=== PATIENT | male | born 1975 | race Two or more races ===

== ENCOUNTER 2020-12-21 17:30 | Emergency (ER) | payer MEDICAID ==
[~2020-12-21] VITALS: Ht 160 cm; Wt 77.1 kg
[2020-12-21 17:37] VITALS: BP 134/62
--- NOTE | 2020-12-21 19:11 | NUR ---
ED Nurse Note: pt states increased swelling of penis and testes since yesterday, increasing swelling today. pt denies trauma to area, denies discharge, c/o mild tightness in scrotal area. pt states he was able to urinate 2x today this morning, not since then. pt denies PMH. presents with ABD distention, pitting edema in bilateral lower legs, jaundiced appearance. MD notified of penis/scrotal edema, ABD distention, inability to urinate, bilateral edema.
--- NOTE | 2020-12-21 19:49 | Emergency Room Report ---
History of Present Illness General Chief Complaint: Male Urogenital Problems Source: Patient Present Illness Allergies: Coded Allergies: No Known Allergies (Unverified , 12/21/20) COVID-19 Screening Contact w/high risk pt: No Experienced COVID-19 symptoms?: No COVID-19 Testing performed STEAM PRESSER: No Patient History Past Medical History: none Past Surgical History: none Pertinent Family History: none Social History: Denies: smoking, alcohol use, drug use Immunizations: UTD Reviewed Nursing Documentation: PMH: Agreed; PSxH: Agreed Nursing Documentation-PMH Past Medical History: No Stated History Physical Exam Vital Signs Date Time Temp Pulse Resp B/P (MAP) Pulse Ox O2 Delivery O2 Flow Rate FiO2 12/21/20 17:37 98.8 83 17 134/62 (86) 97 Room Air Medical Decision Making Homeless Attestation I, The treating physician Dr. Sims, have assessed and agrees that patient is medically stable for discharge to an outpatient disposition. Diagnostic Impression: Primary Impression: Scrotal swelling Additional Impression: Anasarca ER Course Hospital Course 45-year-old male presents with scrotal swelling Differential diagnoses include: hydrocele, varicocele, epididymitis, testicular torsion Clinical course Patient placed on stretcher. After initial history and physical I ordered scrotal ultrasound. Ultrasound shows bilateral hydroceles with scrotal edema good flow to both ovaries I discussed with patient. He has significant lower body anasarca with pitting edema. To legs, scrotum, lower abdomen. Likely due to cirrhosis. Likely longstanding and chronic. Will discharge with Lasix. Recommend close follow-up with PMD. I will provide referrals Diagnosis - scrotal swelling, anasarca stable and discharged to home with prescription for lasix. Followup with PMD. Return to ED if symptoms recur or worsen CT/MRI/US Diagnostic Results CT/MRI/US Diagnostic Results : Imaging Test Ordered: scrotal US Impression Procedure: US Testicular Scrotum EXAM: US Scrotum CLINICAL HISTORY: SARIAH TECHNIQUE: Real-time ultrasound of the scrotum with color Doppler and image documentation. COMPARISON: No relevant prior studies available. FINDINGS: Right testicle: The right testicle measures 3.2 x 2.2 x 2.2 cm. No torsion. Left testicle: The left testicle measures 3.3 x 2.3 x 2.2 cm. No torsion. Epididymides: Unremarkable. Scrotum: There is a large amount of scrotal soft tissue edema. IMPRESSION: 1. Large amount of scrotal soft tissue edema. 2. No evidence of testicular torsion or mass. Last Vital Signs Date Time Temp Pulse Resp B/P (MAP) Pulse Ox O2 Delivery O2 Flow Rate FiO2 12/21/20 17:37 98.8 83 17 134/62 (86) 97 Room Air Status: improved Disposition: HOME, SELF-CARE Condition: Stable Scripts Furosemide* (LASIX*) 40 Mg Tablet 40 MG ORAL DAILY, #30 TAB Prov: Tab Sims MD 12/21/20 Referrals: NOT CHOSEN IPA/,REFERRING (PCP) Tab Sims MD Dec 21, 2020 19:49
--- NOTE | 2020-12-21 19:56 | Diagnostic Imaging Report ---
EXAM: US Scrotum CLINICAL HISTORY: JOHNNIELL TECHNIQUE: Real-time ultrasound of the scrotum with color Doppler and image documentation. COMPARISON: No relevant prior studies available. FINDINGS: Right testicle: The right testicle measures 3.2 x 2.2 x 2.2 cm. No torsion. Left testicle: The left testicle measures 3.3 x 2.3 x 2.2 cm. No torsion. Epididymides: Unremarkable. Scrotum: There is a large amount of scrotal soft tissue edema. IMPRESSION: 1. Large amount of scrotal soft tissue edema. 2. No evidence of testicular torsion or mass.
[2020-12-21] MEDS ORDERED: FUROSEMIDE40 MG ORAL (20:01)
--- NOTE | 2020-12-21 20:14 | NUR ---
ED Nurse Note: rcvd handoff from primary nurse. pt is resting comfotably on stretcher. pt breathing without difficulty on RA, pt refusing VS but states he is hungry. Pt has urinated in urinal at bedside 200ml. Pt states he is not in pain, just cant get comfortable. MD explained treatment plan and pt verbalized understanding. pt awaiting discharge.
[2020-12-22] MEDS ORDERED: HYDROCODON-ACE1 EA16 ORAL (05:09)
== END 2020-12-21 20:20 | disposition home or self-care (01) ==
LOC: EDBD 17:30 → EMR 17:57
DX: N50.89 Other specified disorders of the male genital organs (principal); R60.1 Generalized edema
CPT/HCPCS: 76870; Z7502; 99284

== ENCOUNTER 2020-12-22 05:00 | Emergency (ER) | payer MEDICAID ==
[~2020-12-22 05:00] MED LIST: FUROSEMIDE40 MG ORAL
[2020-12-22] MEDS ORDERED: HYDROCODON-ACE1 EA16 ORAL (05:09)
--- NOTE | 2020-12-22 05:13 | Emergency Room Report ---
History of Present Illness General Chief Complaint: To Be Triaged Present Illness HPI 45-year-old homeless male here with painful lower extremity edema. Patient says that this has been a chronic issue for him for many years. He is homeless and is not taking medications. Patient was here approximately 12 hours earlier and was evaluated for testicular swelling secondary to his anasarca. Had normal scrotal ultrasound. Patient was discharged and slept in front of the hospital and then checked in again. Allergies: Coded Allergies: No Known Allergies (Unverified , 12/21/20) COVID-19 Screening Contact w/high risk pt: No Experienced COVID-19 symptoms?: No Review of Systems All Other Systems: negative except mentioned in HPI Physical Exam Sp02 EP Interpretation: reviewed, normal General Appearance: no apparent distress, alert, other - Disheveled, foul- smelling Head: normocephalic, atraumatic Eyes: bilateral eye normal inspection, bilateral eye PERRL ENT: hearing grossly normal, normal pharynx, no angioedema, normal voice Neck: full range of motion, supple/symm/no masses Respiratory: chest non-tender, lungs clear, normal breath sounds, speaking full sentences Cardiovascular #1: regular rate, rhythm, other - 3+ lower extremity pitting edema bilaterally Cardiovascular #2: 2+ carotid (R), 2+ carotid (L), 2+ radial (R), 2+ radial (L), 2+ dorsalis pedis (R), 2+ dorsalis pedis (L) Gastrointestinal: normal bowel sounds, non tender, soft, non-distended, no guarding, no rebound Rectal: deferred Genitourinary: normal inspection, no CVA tenderness Musculoskeletal: back normal, normal range of motion, gait/station normal, non- tender Neurologic: alert, motor strength/tone normal, oriented x3, sensory intact, responsive, speech normal Psychiatric: judgement/insight normal, memory normal, mood/affect normal, no suicidal/homicidal ideation Lymphatic: no adenopathy Medical Decision Making Diagnostic Impression: Primary Impression: Anasarca ER Course 45-year-old male here with lower extremity edema. Patient says this has been a chronic issue for him for several years. Patient was seen in the emergency department about 12 hours prior and was discharged and then slept in front of the hospital and checked in again. Patient denies any chest pain or shortness of breath. Patient has been using crutches to get around for years. His edema is the same edema that he has been suffering from for several years. Was given a Jericho in the emergency department with resolution of his pain. Given a prescription for several more dose of Jericho. He had already received a prescription for Lasix and has not yet filled this prescription. Told that he needs to fill these prescriptions and also follow-up with a primary care provider. He was given information to follow-up with a PCP. Discharged in sta ble condition. Disposition: HOME, SELF-CARE Condition: Stable Scripts Hydrocodone/Acetaminophen 7.5-325* (HYDROCODON-ACETAMINOPH 7.5-325*) 1 Each Tablet 1 TAB ORAL Q4H, #10 TAB 0 Refills Prov: Khanh Mcduffie M.D. 12/22/20 Referrals: [facility] Patient Instructions: Edema, Fluid Restriction Khanh Mcduffie M.D. Dec 22, 2020 05:13
[2020-12-22] MEDS ORDERED: HYDROcodone/Acetamin 5/325 tab ORAL ONE (05:15)
== END 2020-12-22 05:30 | disposition home or self-care (01) ==
LOC: EMR 05:19
DX: R60.1 Generalized edema (principal); Z59.0 Homelessness
CPT/HCPCS: 99282

== ENCOUNTER 2020-12-28 18:28 | Inpatient (IN) | payer MEDICAID ==
[~2020-12-28] VITALS: Ht 165.1 cm; Wt 104.3 kg
[~2020-12-28 18:28] MED LIST changes: +HYDROCODON-ACE1 EA16 ORAL
--- NOTE | 2020-12-28 18:47 | NUR ---
ED Nurse Note:brought in by ems, stated he was in another hosptial for edema to his testicles and legs. released and lost his prescription and can't remember what it was. pt removed his shorts. his testicles are approximately the size of cantalope, penis is edematous. he states when he moves he leaks out urine. pt's testicles are discolored and peeling. pt has severe edema to his left lower leg that is discolored. pt stated that he has pain to the left ankle. leg is tight to feel. pt has bruise like area from the top of his buttocks down the side of his right leg.
--- NOTE | 2020-12-28 19:00 | NUR ---
ED Nurse Note: rcvd note from primary RN, pt resting on stretcher with obvious discomfort and respiratory wheezing. pts lower lobes have diminished breath sounds, pt states its difficult for him to breathe when hes lying down. pt sat 100% on RA. other vs wnl. IV est 20g left ac, blood work and cultures at bedside. awaiting dr evaluation. will continue to monitor. pt states 10/10 pain. repositioned pt and gave him an ice pack for comfort. pt states he feels better already.
[2020-12-28 19:47] VITALS: BP 131/63
--- NOTE | 2020-12-28 21:29 | NUR ---
ED Nurse Note: pt went to imaging.
[2020-12-28 21:30] LABS: HEMATOCRIT 29.6 % (42.0-52.0); HEMOGLOBIN 9.5 G/DL (14.2-18.0); MEAN CORPUSCULAR VOLUME 113 FL (80-99); PLATELET COUNT 70 K/UL (150-450); RED BLOOD COUNT 2.61 M/UL (4.70-6.10); RED CELL DISTRIBUTION WIDTH 16.9 % (11.6-14.8); WHITE BLOOD COUNT 4.5 K/UL (4.8-10.8)
[2020-12-28 21:41] LABS: ANION GAP 4 mmol/L (5-15); BLOOD UREA NITROGEN 11 mg/dL (7-18); CALCIUM 7.3 MG/DL (8.5-10.1); CARBON DIOXIDE 27 MMOL/L (21-32); CHLORIDE 107 MMOL/L (98-107); CREATININE 0.8 MG/DL (0.55-1.30); POTASSIUM 3.9 MMOL/L (3.5-5.1); SODIUM 138 MMOL/L (136-145)
[2020-12-28 21:49] LABS: ALANINE AMINOTRANSFERASE 47 U/L (12-78); ALBUMIN 1.3 G/DL (3.4-5.0); ALBUMIN/GLOBULIN RATIO 0.3 (1.0-2.7); ALKALINE PHOSPHATASE 203 U/L (46-116); ASPARTATE AMINO TRANSFERASE 91 U/L (15-37)
--- NOTE | 2020-12-28 22:12 | Diagnostic Imaging Report ---
EXAM: CT Abdomen and Pelvis Without Intravenous Contrast CLINICAL HISTORY: ABD DIST TECHNIQUE: Axial computed tomography images of the abdomen and pelvis without intravenous contrast. CTDI is 19.4 mGy and DLP is 1395 mGy-cm. One or more of the following dose reduction techniques were used: automated exposure control, adjustment of the mA and/or kV according to patient size, use of iterative reconstruction technique. COMPARISON: No relevant prior studies available. FINDINGS: Lung bases: Unremarkable. Mediastinum: Small hiatal hernia. ABDOMEN: Liver: Cirrhosis with portal hypertension. Gallbladder and bile ducts: No calcified stones. No ductal dilation. Pancreas: Unremarkable. Spleen: Splenomegaly. Adrenals: Unremarkable. Kidneys and ureters: No renal calculi or obstructive changes. Stomach and bowel: Nonspecific thickening in the GI tract in light of the liver disease and third spacing. PELVIS: Appendix: No findings to suggest acute appendicitis. Bladder: Unremarkable. Reproductive: Large hydroceles ABDOMEN and PELVIS: Intraperitoneal space: Small amounts of fluid in the peritoneal cavity. Edema in the mesentery. Bones/joints: No acute fracture. Soft tissues: Anasarca. Vasculature: Collateral vessels. No abdominal aortic aneurysm. Lymph nodes: Inguinal nodes. IMPRESSION: Cirrhosis with portal hypertension.
--- NOTE | 2020-12-28 22:35 | NUR ---
TRANSFER TO FLOOR: Patient transferred to /S [id number] as ordered, per ED MD . Report given to GERMAN Jarvis. Belongings given to pt.
--- NOTE | 2020-12-28 22:53 | NUR ---
ED Nurse Note: as getting pt up and cleaned, RN noticed bruising on pts upper thighs/buttock area. open sore on right back of thigh by knee. will make floor RN aware.
--- NOTE | 2020-12-28 23:04 | Emergency Room Report ---
History of Present Illness General Chief Complaint: Edema Source: Patient Present Illness HPI This patient is a homeless male with a liver cirrhosis. He is endstage with chronic anasarca. He has severe lower extremity and scrotal swelling and is sleeping on the street, unable to care for himself. He states that he is in severe pain and has been unable to walk. He has presented to the ED several days in a row as he states that he can no longer tolerate his pain and cannot care for himself. Allergies: Coded Allergies: No Known Allergies (Unverified , 12/21/20) COVID-19 Screening Contact w/high risk pt: No Experienced COVID-19 symptoms?: No COVID-19 Testing performed MEDIA INTERN: No Patient History Past Medical History: see triage record, other Social History: Reports: alcohol use Reviewed Nursing Documentation: PMH: Agreed; PSxH: Agreed Nursing Documentation-PMH Past Medical History: No Stated History Review of Systems All Other Systems: negative except mentioned in HPI Physical Exam Vital Signs Date Time Temp Pulse Resp B/P (MAP) Pulse Ox O2 Delivery O2 Flow Rate FiO2 12/28/20 18:25 98.4 92 20 150/80 (103) 99 Room Air 12/28/20 19:47 100 Sp02 EP Interpretation: reviewed, normal General Appearance: no apparent distress, alert, GCS 15, non-toxic Head: normocephalic, atraumatic Eyes: bilateral eye normal inspection, bilateral eye PERRL ENT: hearing grossly normal, normal pharynx, no angioedema, normal voice Neck: full range of motion, supple/symm/no masses Respiratory: chest non-tender, lungs clear, normal breath sounds, no respiratory distress, no retraction, no accessory muscle use, speaking full sentences Cardiovascular #1: regular rate, rhythm, edema - ansarca Gastrointestinal: non tender, soft, no guarding, no rebound, distended Rectal: deferred Genitourinary: other - Severe swelling and erythema of scrotum. Musculoskeletal: back normal, normal range of motion, gait/station normal, swelling - Severe swelling of bilateral legs (anasarca) Neurologic: alert, motor strength/tone normal, oriented x3, sensory intact, responsive, speech normal Psychiatric: judgement/insight normal, memory normal, mood/affect normal, no suicidal/homicidal ideation Skin: other - anasarca Medical Decision Making Diagnostic Impression: Primary Impression: Edema Additional Impressions: Anasarca Scrotal swelling ER Course This homeless male with cirrhosis and anasarca is unable to care for himself. He needs further management by a GI specialist and possibly TIPS. Regardless, the pt is homeless and cannot manage this terminal illness on the street. He is admitted for further management and will need placement in a nursing/assisted living facility. See EMR. Note; pancytopenia CT/MRI/US Diagnostic Results CT/MRI/US Diagnostic Results : Imaging Test Ordered: CT abd/pelvis Impression IMPRESSION: Cirrhosis with portal hypertension. Last Vital Signs Date Time Temp Pulse Resp B/P (MAP) Pulse Ox O2 Delivery O2 Flow Rate FiO2 12/28/20 22:32 98.4 99 22 132/60 100 Room Air 100 Disposition: ADMITTED INPATIENT Condition: Stable Referrals: NOT CHOSEN IPA/,REFERRING (PCP) Peri Moss DO Dec 28, 2020 23:04
--- NOTE | 2020-12-28 23:27 | NUR ---
NURSE NOTES: Received report from GERMAN Quiñonez ED. AAO x 4, korean speaking. Arrived @ 2300 via gurney. IV site intact and patent. Vitals stable. Pt has bilateral leg swollen with indentation and so much swollen/redness on scrotum. R lower buttock open wound noted and scabies on inner thigh and chest. All belongings reviewed. Has own crutches at bedside. No home meds noted. Orientation given to the facility and room. Fall education given and verbally understood. Bed locked, lowest position, alarm on, side rails up, call light within reach. Will continue to monitor. Left message Dr. Montaño for admission order.
[2020-12-29] VITALS: BP 128/63
--- NOTE | 2020-12-29 | NUR ---
NURSE NOTES: Left message Dr. Montaño for admission order and still awaiting for call back.
[2020-12-29 04:00] VITALS: BP 113/67
--- NOTE | 2020-12-29 05:00 | NUR ---
NURSE NOTES: Left message Dr. Montaño for admission order and still awaiting for call back.
--- NOTE | 2020-12-29 06:07 | NUR ---
NURSE HAND-OFF: Important Events on Shift:admission Patient Status: Diet: Pending Orders: admission order Pending Results/Labs:[] Pending MD notification:[] Latest Vital Signs: Temperature 98.4 , Pulse 99 , B/P 113 /67 , Respiratory Rate 18 , O2 SAT 100 , Room Air, O2 Flow Rate . Vital Sign Comment: [] Latest Quarles Fall Score: 45 Fall Risk: High Risk Safety Measures: Call light Within Reach, Bed Alarm Zone 1, Side Rails Side Rails x2, Bed position Low and Locked. Fall Precautions: Yellow Socks Yellow Gown Door Sign Patient Fall Education Addendum: 12/29/20 at 0712 by TESS WOODY RN RN Report given to Rene and merary admission order
--- NOTE | 2020-12-29 06:10 | NUR ---
NURSE NOTES: Urine collected and sent to the lab
--- NOTE | 2020-12-29 06:34 | NUR ---
NURSE NOTES: Left message Dr. Montaño for admission order and still awaiting for call back.
[2020-12-29 06:41] LABS: APPEARANCE,URINE SLIGHTLY CLOUDY; BILIRUBIN, URINE 2+ (NEGATIVE); COLOR,URINE BROWN; GLUCOSE, URINE (UA) NEGATIVE (NEGATIVE); KETONES,URINE 2+ (NEGATIVE); LEUKOCYTE ESTERASE ,URINE 1+ (NEGATIVE); NITRITE,URINE POSITIVE (NEGATIVE); PH,URINE 5 (4.5-8.0); UROBILINOGEN,URINE 12 MG/DL (0.0-1.0)
[2020-12-29 06:54] LABS: PROTEIN,URINE 1+ (NEGATIVE)
--- NOTE | 2020-12-29 07:30 | NUR ---
NURSE NOTES: RN received report from GERMAN Jarvis and patient in bed. Patient is aaoX3, shows no s/s of respiratory distress on RA. Scrotum and lower legs are edematous. Call light within reach, bed in lowest position and locked, bed alarm on. Care plan communicated with the patient. Admission orders received from Dr. Montaño and carried out. Will continue to monitor.
[2020-12-29 08:00] VITALS: BP 117/57
--- NOTE | 2020-12-29 08:05 | NUR ---
CASE MANAGEMENT:REVIEW 45YR OLD HOMELESS MALE PRESENTED TO ER CC: EDEMA. SWOLLEN LEGS AND TESTICULAR PAIN. DIFFICULTY BREATHING LYING DOWN SI:EDEMA. ANASARCA. SCROTAL SWELLING 98.4 92 20 150/80 99% ON RA WBC-4.5 RBC-2.6 H/H-9.5/29.6 PLT-70 CA-7.3 TBILI+5.0 DBILI+3.0 LIPASE+[address] ABD/PELVIS URINE REFLEX : TO MED/SURG DCP: [facility] CONSULT
[2020-12-29] MEDS: cefTRIAXone 1 GM in D5W 55 ML IVPB SCH (11:09)
[2020-12-29 12:00] VITALS: BP 119/81
--- NOTE | 2020-12-29 12:08 | Consultation ---
History of Present Illness General Date patient seen: Dec 29, 2020 Reason for Hospitalization: Edema Present Illness HPI 45-year-old male with liver insufficiency presents to [facility] complaining of worsening generalized edema and pain around his penis. Surgery called to evaluate assist with care. Patient seen, patient by, chart reviewed. Patient with diffuse anasarca noted to have edema abdomen pitting in the legs scrotal and penile. On the shaft right base of his penis there is a open wound. Local care provided. History of EtOH. Labs noted. Prior admission reviewed Allergies: Coded Allergies: No Known Allergies (Unverified , 12/21/20) COVID-19 Screening Contact w/high risk pt: No Experienced COVID-19 symptoms?: No Medication History Scheduled Furosemide* (Lasix*), 40 MG ORAL DAILY Hydrocodone/Acetaminophen 7.5-325* (Hydrocodon-Acetaminoph 7.5-325*), 1 TAB ORAL Q4H Patient History History Provided By: Patient, Medical Record, PMD Healthcare decision maker Resuscitation status Advanced Directive on File Past Medical/Surgical History Past Medical/Surgical History: (1) Scrotal swelling (2) Anasarca (3) Edema Review of Systems Review of Symptoms General ROS: no weight loss or fever Psychological ROS: no depression or mood changes, no memory loss Ophthalmic ROS: no visual changes or eye irritation ENT ROS: no nasal congestion, hearing loss, dizziness Allergy and Immunology ROS: no allergic symptoms or urticaria Hematological and Lymphatic ROS: no swollen glands, unusual bleeding or bruising Endocrine ROS: no polyuria, polydipsia, weight changes, temperature intolerance Respiratory ROS: no cough, shortness of breath, or wheezing Cardiovascular ROS: no chest pain or dyspnea on exertion Gastrointestinal ROS: denies abdominal pain, bright red blood in stool. Musculoskeletal ROS: no myalgias or arthralgias Neurological ROS: no TIA or stroke symptoms Dermatological ROS: no new or changing skin lesions, rashes or pruritis Physical Exam Physical Exam General appearance: alert, cooperative, no distress, appears stated age Head: Normocephalic, without obvious abnormality, atraumatic Eyes: conjunctivae/corneas clear. PERRL, EOM's intact. Fundi benign Throat: Lips, mucosa, and tongue normal. Teeth and gums normal Neck: supple, symmetrical, trachea midline, no adenopathy, thyroid: not enlarged, symmetric, no tenderness/mass/nodules, no carotid bruit and no JVD Lungs: clear to auscultation bilaterally Heart: regular rate and rhythm, S1, S2 normal, no murmur, click, rub or gallop Abdomen: soft, non-tender. Bowel sounds normal. No masses, no organomegaly Extremities: extremitiesedema Pulses: 2+ and symmetric Skin: Skin generalized anasarca Neurologic: Grossly normal Last 24 Hour Vital Signs Date Time Temp Pulse Resp B/P (MAP) Pulse Ox O2 Delivery O2 Flow Rate FiO2 12/29/20 08:00 98.0 94 19 117/57 (77) 100 12/29/20 04:00 98.4 99 18 113/67 (82) 100 12/29/20 00:00 98.3 101 18 128/63 (84) 100 12/28/20 23:44 Room Air 12/28/20 22:32 98.4 99 22 132/60 100 Room Air 100 12/28/20 19:47 86 22 Room Air 100 12/28/20 19:47 98.4 89 22 131/63 100 Room Air 12/28/20 18:25 98.4 92 20 150/80 (103) 99 Room Air Intake and Output 12/28/20 12/29/20 19:00 07:00 Intake Total 0 ml Output Total 600 ml Balance -600 ml Intake Oral 0 ml Output Other 600 ml Laboratory Tests Test 12/28/20 19:30 12/29/20 06:00 White Blood Count 4.5 K/UL (4.8-10.8) L Red Blood Count 2.61 M/UL (4.70-6.10) L Hemoglobin 9.5 G/DL (14.2-18.0) L Hematocrit 29.6 % (42.0-52.0) L Mean Corpuscular Volume 113 FL (80-99) H Mean Corpuscular Hemoglobin 36.2 PG (27.0-31.0) H Mean Corpuscular Hemoglobin Concent 32.0 G/DL (32.0-36.0) Red Cell Distribution Width 16.9 % (11.6-14.8) H Platelet Count 70 K/UL (150-450) L Mean Platelet Volume 8.5 FL (6.5-10.1) Neutrophils (%) (Auto) % (45.0-75.0) Lymphocytes (%) (Auto) % (20.0-45.0) Monocytes (%) (Auto) % (1.0-10.0) Eosinophils (%) (Auto) % (0.0-3.0) Basophils (%) (Auto) % (0.0-2.0) Differential Total Cells Counted 100 Neutrophils % (Manual) 65 % (45-75) Lymphocytes % (Manual) 29 % (20-45) Monocytes % (Manual) 3 % (1-10) Eosinophils % (Manual) 3 % (0-3) Basophils % (Manual) 0 % (0-2) Band Neutrophils 0 % (0-8) Platelet Estimate Decreased L Platelet Morphology Normal Anisocytosis 1+ Macrocytosis 1+ Sodium Level 138 MMOL/L (136-145) Potassium Level 3.9 MMOL/L (3.5-5.1) Chloride Level 107 MMOL/L (98-107) Carbon Dioxide Level 27 MMOL/L (21-32) Anion Gap 4 mmol/L (5-15) L Blood Urea Nitrogen 11 mg/dL (7-18) Creatinine 0.8 MG/DL (0.55-1.30) Estimat Glomerular Filtration Rate > 60 mL/min (>60) Glucose Level 102 MG/DL (74-106) Calcium Level 7.3 MG/DL (8.5-10.1) L Total Bilirubin 5.0 MG/DL (0.2-1.0) H Direct Bilirubin 3.0 MG/DL (0.0-0.3) H Aspartate Amino Transf (AST/SGOT) 91 U/L (15-37) H Alanine Aminotransferase (ALT/SGPT) 47 U/L (12-78) Alkaline Phosphatase 203 U/L (46-116) H Total Protein 6.4 G/DL (6.4-8.2) Albumin 1.3 G/DL (3.4-5.0) L Globulin 5.1 g/dL Albumin/Globulin Ratio 0.3 (1.0-2.7) L Lipase 478 U/L (73-393) H Urine Color Brown Urine Appearance Slightly cloudy Urine pH 5 (4.5-8.0) Urine Specific [place] 1.020 (1.005-1.035) Urine Protein 1+ (NEGATIVE) H Urine Glucose (UA) Negative (NEGATIVE) Urine Ketones 2+ (NEGATIVE) H Urine Blood Negative (NEGATIVE) Urine Nitrite Positive (NEGATIVE) H Urine Bilirubin 2+ (NEGATIVE) H Urine Ictotest Positive (NEGATIVE) Urine Urobilinogen 12 MG/DL (0.0-1.0) H Urine Leukocyte Esterase 1+ (NEGATIVE) H Urine RBC 0 /HPF (0 - 0) Urine WBC 2-4 /HPF (0 - 0) Urine Squamous Epithelial Cells Few /LPF (NONE/OCC) Urine Bacteria Few /HPF (NONE) Urine Mucus Moderate /LPF (NONE/OCC) H Height (Feet): 5 Height (Inches): 5.00 Weight (Pounds): 230 Medications Current Medications Medications (Trade) Dose Ordered Sig/Nelsy Route PRN Reason Start Time Stop Time Status Last Admin Dose Admin Acetaminophen (Tylenol) 650 mg Q4H PRN ORAL For Pain 12/29/20 09:30 01/28/21 09:29 Ceftriaxone Sodium 1 gm/ Dextrose 55 ml @ 110 mls/hr Q24H IVPB 12/29/20 11:00 01/05/21 10:59 12/29/20 11:09 Furosemide (Lasix) 20 mg DAILY IV 12/29/20 10:00 01/28/21 09:59 12/29/20 11:09 Permethrin (Elimite) 1 applic DAILY TOPIC 12/29/20 13:00 12/30/20 14:00 Assessment/Plan Problem List: (1) Scrotal swelling Assessment & Plan: 45-year-old male scrotal swelling identified a base right side penis lesion 2 cm x 1 cm stage III with 10% eschar. Wound washed Thera honey place dressings placed. Patient needs significant fluid reduction as he is retaining. Lasix ordered. Care plan discussed with nursing and PCP. Continue local wound care. GI for liver insufficiency. Liver: Cirrhosis with portal hypertension. Gallbladder and bile ducts: No calcified stones. No ductal dilation. Pancreas: Unremarkable. Spleen: Splenomegaly. Adrenals: Unremarkable. Kidneys and ureters: No renal calculi or obstructive changes. Stomach and bowel: Nonspecific thickening in the GI tract in light of the liver disease and third spacing. PELVIS: Appendix: No findings to suggest acute appendicitis. Bladder: Unremarkable. Reproductive: Large hydroceles ABDOMEN and PELVIS: Intraperitoneal space: Small amounts of fluid in the peritoneal cavity. Edema in the mesentery. Bones/joints: No acute fracture. Soft tissues: Anasarca. Vasculature: Collateral vessels. No abdominal aortic aneurysm. Lymph nodes: Inguinal nodes. IMPRESSION: Cirrhosis with portal hypertension. ICD Codes: N50.89 - Other specified disorders of the male genital organs SNOMED: 804369296 (2) Anasarca ICD Codes: R60.1 - Generalized edema SNOMED: 220526182, 580685049 (3) Edema ICD Codes: R60.9 - Edema, unspecified SNOMED: 483534390, [id number] Alexandru Cortez Dec 29, 2020 12:08
--- NOTE | 2020-12-29 12:58 | NUR ---
RD ASSESSMENT & RECOMMENDATIONS SEE CARE ACTIVITY FOR COMPLETE ASSESSMENT DAILY ESTIMATED NEEDS: Needs based on Liver, wound 72.5kg abw 25-30 kcals/kg 1766-6756 total kcals 1.25-1.5 g protein/kg 91-109 g total protein Fluid per MD, on lasix NUTRITION DIAGNOSIS: Decreased sodium needs r/t fluid overload, edema, as evidenced by pt w/ cirrhosis, ascites, LE 4+ edema. CURRENT DIET: regular PO DIET RECOMMENDATIONS: Low Na/ Low Fat ADDITIONAL RECOMMENDATIONS: 1) Obtain a standing weight as able Or transfer to bed w/ scale 2) High pro snacks in b.w meals 3) Wound care: LUIS EDUARDO BID + MVI w/ min + Vit C 250mg BID Addendum: 12/29/20 at [address] add Vit B1
--- NOTE | 2020-12-29 13:19 | NUR ---
NURSE NOTES:WOUND CARE NOTES:Pt presented on admission with Multiple Pressure Injuries. Trunk,including Scrotum and Bilat lower extremities are grossly edematous. Shaft of Penis is grossly edematous and malformed. Unstageable Pressure Injury noted at base of shaft of penis(L)2.5cm x (W)1.7cm. Base of wound is 90% fibrinous,10% surrounding mehnaz borders. Edges are macerated. Surrounding shaft of penis and Scrotum are erythematous. Scattered Purpuric areas noted to lumbar, Sacrum, R and L Gluteal cheeks. Surrounding skin are erythematous. Multiple Linear partial thickness lacerations noted to medial /posterior aspects of both upper thighs. Pt informed staff that legs of his shorts became too tight because of swelling and were cutting into his skin. Scattered purpuric areas also noted to posterior Upper L and R thighs. Unstageable Pressure Injury noted to L Heel. Base of wound is 100% necrotic. Edges are adherent to base of wound. R heel is boggy with non-blanchable erythema. Tx.Plan:Cleanse wound base of penis with Saline. Apply Therahoney every 3 days and prn. Fecal pouch around base of Penis. Change every 3 days and prn.. Apply Moisture Barrier Paste to Scrotum. Buttocks, and Medial/Posterior Aspects of both upper thighs with each Incontinence care. Cover Sacrum with Optifoam drsg. Change every 3 days and prn. Apply Betadine to L Heel. Cover with Optifoam drsg. Change every 3 days and prn. Elevate Legs with Pillows. Reposition at least every 2hours or as tolerated.
[2020-12-29 16:00] VITALS: BP 121/69
[2020-12-29] MEDS: Ascorbic Acid 500mg tab ORAL SCH (17:24)
[2020-12-29] MEDS: Multivitamin w/Minerals tab ORAL SCH (17:24)
--- NOTE | 2020-12-29 19:29 | History and Physical Report ---
DATE OF ADMISSION: 12/28/2020 HISTORY OF PRESENT ILLNESS: This is a 45-year-old male who came to the emergency room for having scrotal swelling, anasarca, edema, unable to walk. The patient has been walking with crutches. The patient claims he was in the ER about 2 weeks ago, was given a prescription. PAST MEDICAL HISTORY: Significant for possible hypertension, CHF. MEDICATIONS: None. ALLERGIES: NKA. FAMILY HISTORY: Not contributory. SOCIAL HISTORY: The patient is homeless. PHYSICAL EXAMINATION: VITAL SIGNS: Blood pressure 117/57, pulse 94, respirations 19, temperature 98. HEENT: NAD. CHEST: Bilateral decreased breath sounds. A few crackles. CARDIOVASCULAR: Regular rhythm. ABDOMEN: Soft. EXTREMITIES: CCE. NEUROLOGICAL: The patient has generalized weakness. LABORATORY DATA: White count 4.5, hemoglobin 9.5. Chemistry panel, BUN 11, creatinine 0.8, albumin is 1.3. ASSESSMENT: 1. Scrotal abscess. 2. Anasarca. 3. Severe malnutrition. 4. Comorbid obesity. 5. CHF. PLAN: 1. We will add Lasix. 2. We will consider dietary consult. 3. Continue wound care. 4. Discussed with Dr. Cortez. Titi Montaño M.D. DR: Austyn JOB#: [id number] CC:
--- NOTE | 2020-12-29 19:33 | NUR ---
NURSE NOTES: Received report from Neyda López. AAOx 4, on RA. IV site and patent. Fecal pouch around base of Penis for urine and dark usha color noted. No labored breathing. Wound dressings d/i/c. No acute distress noted. Bed locked, lowest position, alarm on, side rails up, call light within reach. Will continue to monitor.
--- NOTE | 2020-12-29 19:34 | NUR ---
NURSE HAND-OFF: Important Events on Shift:wound care, permethrin cream: wash the body before another application, isolation precaution Patient Status: stable Diet: low fat, low sodium Pending Orders: n/a Pending Results/Labs:n/a Pending MD notification:n/a Latest Vital Signs: Temperature 98.0 , Pulse 86 , B/P 121 /69 , Respiratory Rate 18 , O2 SAT 98 , Room Air, O2 Flow Rate . Vital Sign Comment: stable Latest Quarles Fall Score: 45 Fall Risk: High Risk Safety Measures: Call light Within Reach, Bed Alarm Zone 1, Side Rails Side Rails x2, Bed position Low and Locked. Fall Precautions: Yellow Socks Yellow Gown Door Sign Patient Fall Education Report given to GERMAN Jarvis.
[2020-12-29 20:00] VITALS: BP 120/64
[2020-12-30] VITALS: BP 124/67
[2020-12-30 04:00] VITALS: BP 136/91
--- NOTE | 2020-12-30 06:30 | NUR ---
NURSE HAND-OFF: Important Events on Shift:none Patient Status: stable Diet: Pending Orders: Pending Results/Labs: Pending MD notification: Latest Vital Signs: Temperature 99.4 , Pulse 86 , B/P 136 /91 , Respiratory Rate 20 , O2 SAT 99 , Room Air, O2 Flow Rate . Vital Sign Comment: [] Latest Quarles Fall Score: 45 Fall Risk: High Risk Safety Measures: Call light Within Reach, Bed Alarm Zone 1, Side Rails Side Rails x2, Bed position Low and Locked. Fall Precautions: Yellow Socks Yellow Gown Door Sign Patient Fall Education
--- NOTE | 2020-12-30 07:40 | NUR ---
NURSE NOTES: RN received report from Simona and patient in bed. Patient does not show respiratory distress or pain. IV site asymptomatic and patent. Bed in lowest position, locked, bed alarm on. Call light within reach, and able to make needs known. Fecal drainage bag on for urination draining and intact. Will continue to monitor.
[2020-12-30 08:00] VITALS: BP 111/51
[2020-12-30] MEDS: cefTRIAXone 1 GM in D5W 55 ML IVPB SCH (10:38)
[2020-12-30] MEDS: Multivitamin w/Minerals tab ORAL SCH ×2 (10:39→17:57)
[2020-12-30] MEDS: Ascorbic Acid 500mg tab ORAL SCH ×2 (10:39→17:57)
--- NOTE | 2020-12-30 11:52 | General Progress Note ---
Subjective Date patient seen: Dec 30, 2020 Constitutional: Reports: weakness HEENT: Reports: no symptoms Respiratory: Reports: no symptoms Gastrointestinal/Abdominal: Reports: no symptoms Endocrine: Reports: no symptoms Allergies: Coded Allergies: No Known Allergies (Unverified , 12/21/20) Objective Last 24 Hour Vital Signs Date Time Temp Pulse Resp B/P (MAP) Pulse Ox O2 Delivery O2 Flow Rate FiO2 12/30/20 08:00 98.4 86 18 111/51 (71) 97 12/30/20 04:00 99.4 86 20 136/91 (106) 99 12/30/20 00:00 98.0 91 20 124/67 (86) 96 12/29/20 20:41 Room Air 12/29/20 20:00 97.7 85 20 120/64 (82) 98 12/29/20 16:00 98.0 86 18 121/69 (86) 98 12/29/20 12:00 97.9 87 18 119/81 (94) 99 Intake and Output 12/29/20 12/30/20 19:00 07:00 Intake Total 855 ml Output Total 500 ml Balance 855 ml -500 ml IV Total 55 ml Other 800 ml Output Urine Total 500 ml Height (Feet): 5 Height (Inches): 5.00 Weight (Pounds): 230 General Appearance: alert EENT: PERRL/EOMI Neck: supple Cardiovascular: regular rhythm Respiratory/Chest: normal breath sounds Abdomen: non tender, soft Pelvis: other - scrtal swelling and wound Extremities: non-tender, normal inspection, swelling Edema: mild edema Skin: warm/dry Assessment/Plan Assessment/Plan: scortal swelling scortal wound chf htn comorbid obesity cont wound care iv abx lasix iv Juni Montaño MD Dec 30, 2020 11:52
[2020-12-30 12:00] VITALS: BP 137/76
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
--- NOTE | 2020-12-30 13:25 | Surgery Progress Note ---
Surgery Progress Note Subjective Symptoms: improved, tolerating diet, passing flatus Objective Last 24 Hour Vital Signs Date Time Temp Pulse Resp B/P (MAP) Pulse Ox O2 Delivery O2 Flow Rate FiO2 12/30/20 12:00 98.3 88 19 137/76 (96) 98 12/30/20 08:00 98.4 86 18 111/51 (71) 97 12/30/20 04:00 99.4 86 20 136/91 (106) 99 12/30/20 00:00 98.0 91 20 124/67 (86) 96 12/29/20 20:41 Room Air 12/29/20 20:00 97.7 85 20 120/64 (82) 98 12/29/20 16:00 98.0 86 18 121/69 (86) 98 I&O Intake and Output 12/29/20 12/30/20 19:00 07:00 Intake Total 855 ml Output Total 500 ml Balance 855 ml -500 ml IV Total 55 ml Other 800 ml Output Urine Total 500 ml Dressing: saturated Cardiovascular: RSR Respiratory: decreased breath sounds Abdomen: soft, non-tender, present bowel sounds Extremities: edema, no cyanosis Plan Problems: (1) Scrotal swelling Assessment & Plan: Pt presented on admission with Multiple Pressure Injuries. Trunk,including Scrotum and Bilat lower extremities are grossly edematous. Shaft of Penis is grossly edematous and malformed. Unstageable Pressure Injury noted at base of shaft of penis(L)2.5cm x (W)1.7cm. Base of wound is 90% fibrinous,10% surrounding mehnaz borders. Edges are macerated. Surrounding shaft of penis and Scrotum are erythematous. Scattered Purpuric areas noted to lumbar, Sacrum, R and L Gluteal cheeks. Surrounding skin are erythematous. Multiple Linear partial thickness lacerations noted to medial /posterior aspects of both upper thighs. Pt informed staff that legs of his shorts became too tight because of swelling and were cutting into his skin. Scattered purpuric areas also noted to posterior Upper L and R thighs. Unstageable Pressure Injury noted to L Heel. Base of wound is 100% necrotic. Edges are adherent to base of wound. R heel is boggy with non-blanchable erythema. Tx.Plan:Cleanse wound base of penis with Saline. Apply Therahoney every 3 days and prn. Fecal pouch around base of Penis. Change every 3 days and prn.. Apply Moisture Barrier Paste to Scrotum. Buttocks, and Medial/Posterior Aspects of both upper thighs with each Incontinence care. Cover Sacrum with Optifoam drsg. Change every 3 days and prn. Apply Betadine to L Heel. Cover with Optifoam drsg. Change every 3 days and prn. Elevate Legs with Pillows. Reposition at least every 2hours or as tolerated.45-year-old male scrotal swelling identified a base right side penis lesion 2 cm x 1 cm stage III with 10% eschar. Wound washed Thera honey place dressings placed. Patient needs significant fluid reduction as he is retaining. Lasix ordered. Care plan discussed with nursing and PCP. Continue local wound care. GI for liver insufficiency. Liver: Cirrhosis with portal hypertension. Gallbladder and bile ducts: No calcified stones. No ductal dilation. Pancreas: Unremarkable. Spleen: Splenomegaly. Adrenals: Unremarkable. Kidneys and ureters: No renal calculi or obstructive changes. Stomach and bowel: Nonspecific thickening in the GI tract in light of the liver disease and third spacing. PELVIS: Appendix: No findings to suggest acute appendicitis. Bladder: Unremarkable. Reproductive: Large hydroceles ABDOMEN and PELVIS: Intraperitoneal space: Small amounts of fluid in the peritoneal cavity. Edema in the mesentery. Bones/joints: No acute fracture. Soft tissues: Anasarca. Vasculature: Collateral vessels. No abdominal aortic aneurysm. Lymph nodes: Inguinal nodes. IMPRESSION: Cirrhosis with portal hypertension. (2) Anasarca (3) Edema Alexandru Cortez Dec 30, 2020 13:25
--- NOTE | 2020-12-30 15:08 | NUR ---
CASE MANAGEMENT:REVIEW 12/30/20 SI: SCROTAL SWELLING. ANASARCA. EDEMA 98.3 88 19 137/76 98% ON RA IS: IV ROCEPHIN Q24 VIT C PO BID MVI PO BID IV LASIX QD : MED/SURG STATUS DCP: HOMELESS
[2020-12-30 16:00] VITALS: BP 132/73
--- NOTE | 2020-12-30 18:39 | NUR ---
NURSE NOTES: RN changed the dressing and gave wound care.
--- NOTE | 2020-12-30 19:39 | NUR ---
NURSE NOTES: Received report from Neyda López. AAOx 4, on RA. IV site and patent. Fecal pouch around base of Penis for urine in place. No labored breathing, denies pain or discomfort. Wound dressings d/i/c. No acute distress noted. Bed locked, lowest position, alarm on, side rails up, call light within reach. Will continue to monitor.
--- NOTE | 2020-12-30 19:50 | NUR ---
NURSE HAND-OFF: Important Events on Shift:wound care, dressing change, fecal pouch on the base of penis Patient Status:stable per baseline Diet: low sodium, low fat Pending Orders: n/a Pending Results/Labs:n/a Pending MD notification:n/a Latest Vital Signs: Temperature 98.1 , Pulse 85 , B/P 132 /73 , Respiratory Rate 18 , O2 SAT 98 , Room Air, O2 Flow Rate . Vital Sign Comment: stable Latest Quarles Fall Score: 45 Fall Risk: High Risk Safety Measures: Call light Within Reach, Bed Alarm Zone 1, Side Rails Side Rails x2, Bed position Low and Locked. Fall Precautions: Yellow Socks Yellow Gown Door Sign Patient Fall Education Report given to Simona.
[2020-12-30 20:00] VITALS: BP 125/69
[2020-12-31] VITALS: BP 126/64
[2020-12-31 04:00] VITALS: BP 121/62
--- NOTE | 2020-12-31 06:16 | NUR ---
NURSE NOTES: Bed bath given and fecal pouch changed.
--- NOTE | 2020-12-31 06:16 | NUR ---
NURSE HAND-OFF: Important Events on Shift:none Patient Status: [] Diet: [] Pending Orders: [] Pending Results/Labs:[] Pending MD notification:[] Latest Vital Signs: Temperature 98.3 , Pulse 87 , B/P 121 /62 , Respiratory Rate 17 , O2 SAT 100 , Room Air, O2 Flow Rate . Vital Sign Comment: [] Latest Quarles Fall Score: 45 Fall Risk: High Risk Safety Measures: Call light Within Reach, Bed Alarm Zone 1, Side Rails Side Rails x2, Bed position Low and Locked. Fall Precautions: Yellow Socks Yellow Gown Door Sign Patient Fall Education Addendum: 12/31/20 at 0730 by TESS WOODY RN RN Report given to Kajal
--- NOTE | 2020-12-31 07:45 | NUR ---
NURSE NOTES: Received hand-off report from GERMAN Rdz. Patient alert and oriented x3, noted significant swelling on lower extremities, left antecubital 20g saline locked, contact precautions followed. Patient breathing even and unlabored on room air. Call light within reach, bed in lowest and locked position, side rails upx2, bed alarm on.
[2020-12-31 08:00] VITALS: BP 125/69
[2020-12-31] MEDS: Ascorbic Acid 500mg tab ORAL SCH ×2 (08:28→17:32)
[2020-12-31] MEDS: Multivitamin w/Minerals tab ORAL SCH ×2 (08:28→17:32)
[2020-12-31] MEDS: cefTRIAXone 1 GM in D5W 55 ML IVPB SCH (11:08)
[2020-12-31 12:00] VITALS: BP 112/55
--- NOTE | 2020-12-31 13:07 | General Progress Note ---
Subjective Constitutional: Reports: no symptoms Cardiovascular: Reports: no symptoms Respiratory: Reports: shortness of breath, SOB with excertion Allergies: Coded Allergies: No Known Allergies (Unverified , 12/21/20) Objective Last 24 Hour Vital Signs Date Time Temp Pulse Resp B/P (MAP) Pulse Ox O2 Delivery O2 Flow Rate FiO2 12/31/20 08:00 99.1 83 18 125/69 (87) 98 12/31/20 04:00 98.3 87 17 121/62 (81) 100 12/31/20 00:00 99.1 87 17 126/64 (84) 98 12/30/20 21:00 Room Air 12/30/20 20:00 99.1 83 18 125/69 (87) 98 12/30/20 16:00 98.1 85 18 132/73 (92) 98 l Intake and Output 12/30/20 12/31/20 19:00 07:00 Intake Total 775 ml 360 ml Output Total 400 ml 300 ml Balance 375 ml 60 ml Intake Oral 720 ml IV Total 55 ml Other 360 ml Output Urine Total 400 ml 300 ml # Bowel Movements 1 2 Height (Feet): 5 Height (Inches): 5.00 Weight (Pounds): 230 General Appearance: alert EENT: PERRL/EOMI Neck: supple Cardiovascular: regular rhythm Respiratory/Chest: normal breath sounds Abdomen: non tender, soft Genitourinary/Rectal: other Extremities: swelling Edema: other Skin: warm/dry Assessment/Plan Assessment/Plan: scortal swelling scortal wound chf htn comorbid obesity cont wound care iv abx lasix iv pt/ot eval dc plan surgery Juni Montaño MD Dec 31, 2020 13:07
--- NOTE | 2020-12-31 13:27 | Surgery Progress Note ---
Surgery Progress Note Subjective Symptoms: tolerating diet, passing flatus Additional Comments improved edema improved no n/v comfortable Objective Last 24 Hour Vital Signs Date Time Temp Pulse Resp B/P (MAP) Pulse Ox O2 Delivery O2 Flow Rate FiO2 12/31/20 08:00 99.1 83 18 125/69 (87) 98 12/31/20 04:00 98.3 87 17 121/62 (81) 100 12/31/20 00:00 99.1 87 17 126/64 (84) 98 12/30/20 21:00 Room Air 12/30/20 20:00 99.1 83 18 125/69 (87) 98 12/30/20 16:00 98.1 85 18 132/73 (92) 98 I&O Intake and Output 12/30/20 12/31/20 19:00 07:00 Intake Total 775 ml 360 ml Output Total 400 ml 300 ml Balance 375 ml 60 ml Intake Oral 720 ml IV Total 55 ml Other 360 ml Output Urine Total 400 ml 300 ml # Bowel Movements 1 2 Dressing: saturated Cardiovascular: RSR Respiratory: decreased breath sounds Abdomen: soft, non-tender, present bowel sounds Extremities: edema, no cyanosis Plan Problems: (1) Scrotal swelling Assessment & Plan: Pt presented on admission with Multiple Pressure Injuries. Trunk,including Scrotum and Bilat lower extremities are grossly edematous. Shaft of Penis is grossly edematous and malformed. Unstageable Pressure Injury noted at base of shaft of penis(L)2.5cm x (W)1.7cm. Base of wound is 90% fibrinous,10% surrounding mehnaz borders. Edges are macerated. Surrounding shaft of penis and Scrotum are erythematous. Scattered Purpuric areas noted to lumbar, Sacrum, R and L Gluteal cheeks. Surrounding skin are erythematous. Multiple Linear partial thickness lacerations noted to medial /posterior aspects of both upper thighs. Pt informed staff that legs of his shorts became too tight because of swelling and were cutting into his skin. Scattered purpuric areas also noted to posterior Upper L and R thighs. Unstageable Pressure Injury noted to L Heel. Base of wound is 100% necrotic. Edges are adherent to base of wound. R heel is boggy with non-blanchable erythema. Tx.Plan:Cleanse wound base of penis with Saline. Apply Therahoney every 3 days and prn. Fecal pouch around base of Penis. Change every 3 days and prn.. Apply Moisture Barrier Paste to Scrotum. Buttocks, and Medial/Posterior Aspects of both upper thighs with each Incontinence care. Cover Sacrum with Optifoam drsg. Change every 3 days and prn. Apply Betadine to L Heel. Cover with Optifoam drsg. Change every 3 days and prn. Elevate Legs with Pillows. Reposition at least every 2hours or as tolerated.45-year-old male scrotal swelling identified a base right side penis lesion 2 cm x 1 cm stage III with 10% eschar. Wound washed Thera honey place dressings placed. Patient needs significant fluid reduction as he is retaining. Lasix ordered. Care plan discussed with nursing and PCP. Continue local wound care. GI for liver insufficiency. Liver: Cirrhosis with portal hypertension. Gallbladder and bile ducts: No calcified stones. No ductal dilation. Pancreas: Unremarkable. Spleen: Splenomegaly. Adrenals: Unremarkable. Kidneys and ureters: No renal calculi or obstructive changes. Stomach and bowel: Nonspecific thickening in the GI tract in light of the liver disease and third spacing. PELVIS: Appendix: No findings to suggest acute appendicitis. Bladder: Unremarkable. Reproductive: Large hydroceles ABDOMEN and PELVIS: Intraperitoneal space: Small amounts of fluid in the peritoneal cavity. Edema in the mesentery. Bones/joints: No acute fracture. Soft tissues: Anasarca. Vasculature: Collateral vessels. No abdominal aortic aneurysm. Lymph nodes: Inguinal nodes. IMPRESSION: Cirrhosis with portal hypertension. (2) Anasarca (3) Edema Alexandru Cortez Dec 31, 2020 13:27
[2020-12-31 16:00] VITALS: BP 131/62
--- NOTE | 2020-12-31 16:02 | NUR ---
CASE MANAGEMENT:REVIEW 12/31/20 SI: SCROTAL SWELLING. ANASARCA. EDEMA 99.1 83 18 125/69 98% ON RA IS: IV ROCEPHIN Q24 VIT C PO BID MVI PO BID IV LASIX QD : MED/SURG STATUS DCP: HOMELESS
--- NOTE | 2020-12-31 18:34 | NUR ---
NURSE NOTES: Ambulance called stating that they will be late in coming.
--- NOTE | 2020-12-31 19:16 | NUR ---
NURSE HAND-OFF: Important Events on Shift: wound dressing performed, no bleeding noted Patient Status: stable condition, alert and oriented x4, full code Diet: low sodium and low fat Pending Orders: [] Pending Results/Labs:[] Pending MD notification:[] Latest Vital Signs: Temperature 98.8 , Pulse 83 , B/P 131 /62 , Respiratory Rate 20 , O2 SAT 99 , Room Air, O2 Flow Rate . Vital Sign Comment: [] Latest Quarles Fall Score: 45 Fall Risk: High Risk Safety Measures: Call light Within Reach, Bed Alarm Zone 1, Side Rails Side Rails x2, Bed position Low and Locked. Fall Precautions: Yellow Socks Yellow Gown Door Sign Patient Fall Education Report given to Federico Maloney RN.
--- NOTE | 2020-12-31 19:43 | NUR ---
NURSE NOTES: Patient awake in bed, alert and oriented x4, no complaint of pain at this time, on room air, no SOB noted. IV access on the left antecubital g.20. Instructed to use call light for assistance. Bed in lowest, lock engaged and alarm on. Will continue to monitor.
[2020-12-31 20:00] VITALS: BP 125/73
[2021-01-01] VITALS (8 sets, daily range): BP systolic 114–138; BP diastolic 57–72
--- NOTE | 2021-01-01 07:05 | NUR ---
NURSE HAND-OFF: Important Events on Shift: hygiene, 1 BM Patient Status: Diet: Pending Orders: Pending Results/Labs: Pending MD notification: Latest Vital Signs: Temperature 98.8 , Pulse 84 , B/P 124 /57 , Respiratory Rate 18 , O2 SAT 98 , Room Air, O2 Flow Rate . Vital Sign Comment: Latest Quarles Fall Score: 45 Fall Risk: High Risk Safety Measures: Call light Within Reach, Bed Alarm Zone 1, Side Rails Side Rails x2, Bed position Low and Locked. Fall Precautions: Yellow Socks Yellow Gown Door Sign Patient Fall Education Report given to GERMAN Johnston.
--- NOTE | 2021-01-01 07:15 | NUR ---
NURSE NOTES: Report received from Federico PORTER, rounds made. Patient AOx4, calm. [place] speaking. Respirations even/unlabored on RA. Abdomen distended/firm, hypoactive bowel sounds, no NV. Scrotal swelling, condom cath in place. Bilateral lower extremities, pitting edema +3. Call light in reach, bed in lowest position will continue to monitor.
--- NOTE | 2021-01-01 09:35 | NUR ---
PT EVALUATION NOTE Patient seen for initial evaluation and treatment initiated. Patient presents with weakness BLEs and decreased balance which impairs patient's ability to perform mobility skills safely. Patient requires min assist for bed mobility and CGA for transfers with FWW. Patient able to ambulate 30 ft with FWW and CGA. Patient will benefit from skilled inpatient PT intervention to increase LE strength and postural stability for improved level of functional mobility, safety and activity tolerance. Discharge disposition to be determined. Recommend FWW for ambulation. Addendum: 01/01/21 at 1307 by ZITA GARCIA PT Amended: Links added.
--- NOTE | 2021-01-01 10:10 | NUR ---
RD ASSESSMENT & RECOMMENDATIONS SEE CARE ACTIVITY FOR COMPLETE ASSESSMENT DAILY ESTIMATED NEEDS: Needs based on Liver, wound 72.5kg abw 25-30 kcals/kg 0655-0593 total kcals 1.25-1.5 g protein/kg 91-109 g total protein Fluid per MD, on lasix NUTRITION DIAGNOSIS: Decreased sodium needs r/t fluid overload, edema, as evidenced by pt w/ cirrhosis, ascites, LE 4+-> now 3+ edema. CURRENT DIET: Now Low Na/ Low Fat PO DIET RECOMMENDATIONS: Low Na/ Low Fat ADDITIONAL RECOMMENDATIONS: 1) Obtain a standing weight as able Or transfer to bed w/ scale 2) High pro snacks in b.w meals 3) Wound care: LUIS EDUARDO BID + MVI w/ min + Vit C 250mg BID 4) On lasix, updated labs as able to monitor lytes and hydration status
[2021-01-01] MEDS: Multivitamin w/Minerals tab ORAL SCH ×2 (10:43→18:10)
[2021-01-01] MEDS: Ascorbic Acid 500mg tab ORAL SCH ×2 (10:43→18:10)
[2021-01-01] MEDS: cefTRIAXone 1 GM in D5W 55 ML IVPB SCH (10:46)
--- NOTE | 2021-01-01 11:49 | NUR ---
CASE MANAGEMENT:REVIEW 01/01/21 SI: SCROTAL SWELLING. ANASARCA. EDEMA 98.0 85 18 114/60 96% ON RA IS: IV ROCEPHIN Q24 VIT C PO BID MVI PO BID IV LASIX QD : MED/SURG STATUS DCP: HOMELESS
--- NOTE | 2021-01-01 11:56 | General Progress Note ---
Subjective Constitutional: Reports: no symptoms Respiratory: Reports: no symptoms Genitourinary: Reports: incontinence Allergies: Coded Allergies: No Known Allergies (Unverified , 12/21/20) Objective Last 24 Hour Vital Signs Date Time Temp Pulse Resp B/P (MAP) Pulse Ox O2 Delivery O2 Flow Rate FiO2 01/01/21 08:00 98.0 85 18 114/60 (78) 96 01/01/21 04:00 98.8 84 18 124/57 (79) 98 01/01/21 00:00 98.9 84 17 132/66 (88) 98 12/31/20 20:32 Room Air 12/31/20 20:00 98.6 80 17 125/73 (90) 98 12/31/20 16:00 98.8 83 20 131/62 (85) 99 12/31/20 12:00 98.7 85 20 112/55 (74) 99 Intake and Output 12/31/20 01/01/21 19:00 07:00 Intake Total 1200 ml 300 ml Output Total 400 ml 500 ml Balance 800 ml -200 ml Intake Oral 1200 ml 300 ml Output Urine Total 400 ml 500 ml # Bowel Movements 1 Height (Feet): 5 Height (Inches): 5.00 Weight (Pounds): 230 General Appearance: alert EENT: PERRL/EOMI Neck: supple Cardiovascular: regular rhythm Respiratory/Chest: normal breath sounds Abdomen: non tender, soft Assessment/Plan Assessment/Plan: scortal swelling scortal wound chf htn comorbid obesity cont wound care iv abx lasix iv pt/ot eval dc plan dw surgery Juni Montaño MD Jan 01, 2021 11:56
--- NOTE | 2021-01-01 12:17 | NUR ---
MATERIALS MANAGER NOTE LALITO discussed dc plan w/ pt. PT [facility]. SW provided the community resource packet, [facility] list and food and grocery resource. SW also provided the map to the nearest food [facility] and [facility] as per request. SW explained negative ramification of unlicensed facilities/self-directing. PT verbalized understanding. PT verbalized he will be able to provide self-care. LALITO attempted to call [facility] [phone] and [facility] [phone], calls were not answered. Pt will dc own resource to preferred location. LALITO provided clothing as per request. Addendum: 01/07/21 at 1355 by BOGDAN STARKEY [facility] [phone]
--- NOTE | 2021-01-01 18:32 | Surgery Progress Note ---
Surgery Progress Note Subjective Additional Comments feels better still very swollen edema Objective Last 24 Hour Vital Signs Date Time Temp Pulse Resp B/P (MAP) Pulse Ox O2 Delivery O2 Flow Rate FiO2 01/01/21 12:00 98.3 84 18 130/72 (91) 98 01/01/21 08:00 98.0 85 18 114/60 (78) 96 01/01/21 04:00 98.8 84 18 124/57 (79) 98 01/01/21 00:00 98.9 84 17 132/66 (88) 98 12/31/20 20:32 Room Air 12/31/20 20:00 98.6 80 17 125/73 (90) 98 I&O Intake and Output 12/31/20 01/01/21 19:00 07:00 Intake Total 1200 ml 300 ml Output Total 400 ml 500 ml Balance 800 ml -200 ml Intake Oral 1200 ml 300 ml Output Urine Total 400 ml 500 ml # Bowel Movements 1 Dressing: saturated Cardiovascular: RSR Respiratory: clear Abdomen: soft, flat, present bowel sounds Extremities: edema, no tenderness, no cyanosis Plan Problems: (1) Scrotal swelling Assessment & Plan: Pt presented on admission with Multiple Pressure Injuries. Trunk,including Scrotum and Bilat lower extremities are grossly edematous. Shaft of Penis is grossly edematous and malformed. Unstageable Pressure Injury noted at base of shaft of penis(L)2.5cm x (W)1.7cm. Base of wound is 90% fibrinous,10% surrounding mehnaz borders. Edges are macerated. Surrounding shaft of penis and Scrotum are erythematous. Scattered Purpuric areas noted to lumbar, Sacrum, R and L Gluteal cheeks. Surrounding skin are erythematous. Multiple Linear partial thickness lacerations noted to medial /posterior aspects of both upper thighs. Pt informed staff that legs of his shorts became too tight because of swelling and were cutting into his skin. Scattered purpuric areas also noted to posterior Upper L and R thighs. Unstageable Pressure Injury noted to L Heel. Base of wound is 100% necrotic. Edges are adherent to base of wound. R heel is boggy with non-blanchable erythema. Tx.Plan:Cleanse wound base of penis with Saline. Apply Therahoney every 3 days and prn. Fecal pouch around base of Penis. Change every 3 days and prn.. Apply Moisture Barrier Paste to Scrotum. Buttocks, and Medial/Posterior Aspects of both upper thighs with each Incontinence care. Cover Sacrum with Optifoam drsg. Change every 3 days and prn. Apply Betadine to L Heel. Cover with Optifoam drsg. Change every 3 days and prn. Elevate Legs with Pillows. Reposition at least every 2hours or as tolerated.45-year-old male scrotal swelling identified a base right side penis lesion 2 cm x 1 cm stage III with 10% eschar. Wound washed Thera honey place dressings placed. Patient needs significant fluid reduction as he is retaining. Lasix ordered. Care plan discussed with nursing and PCP. Continue local wound care. GI for liver insufficiency. Liver: Cirrhosis with portal hypertension. Gallbladder and bile ducts: No calcified stones. No ductal dilation. Pancreas: Unremarkable. Spleen: Splenomegaly. Adrenals: Unremarkable. Kidneys and ureters: No renal calculi or obstructive changes. Stomach and bowel: Nonspecific thickening in the GI tract in light of the liver disease and third spacing. PELVIS: Appendix: No findings to suggest acute appendicitis. Bladder: Unremarkable. Reproductive: Large hydroceles ABDOMEN and PELVIS: Intraperitoneal space: Small amounts of fluid in the peritoneal cavity. Edema in the mesentery. Bones/joints: No acute fracture. Soft tissues: Anasarca. Vasculature: Collateral vessels. No abdominal aortic aneurysm. Lymph nodes: Inguinal nodes. IMPRESSION: Cirrhosis with portal hypertension. (2) Anasarca (3) Edema Alexandru Cortez Jan 01, 2021 18:32
--- NOTE | 2021-01-01 19:35 | NUR ---
NURSE HAND-OFF: Important Events on Shift:Up with PT (ambulated in room, to bathroom and back), Abdomen firm/distended Patient Status: stable Diet: Low NA, Low Fat, High Protein, Odell BID Pending Orders: Discharge Pending Results/Labs:labs in AM Pending MD notification:CBC CMP 01/02 Latest Vital Signs: Temperature 98.0 , Pulse 81 , B/P 130 /63 , Respiratory Rate 18 , O2 SAT 98 , Room Air, O2 Flow Rate . Vital Sign Comment: none Latest Quarles Fall Score: 45 Fall Risk: High Risk Safety Measures: Call light Within Reach, Bed Alarm Zone 1, Side Rails Side Rails x2, Bed position Low and Locked. Fall Precautions: Yellow Socks Yellow Gown Door Sign Patient Fall Education Report given to Shalom PORTER.
--- NOTE | 2021-01-01 20:03 | NUR ---
NURSE NOTES: patient in bed, awake, alert and verbally responsive. Able to make needs known. No complaint at the moment. Noted with scrotal swelling. Respiration is even and unlabored. Abdomen is soft and non distended. Bed in low and locked position. Provided safe environment. Call light is at bedside. Will continue plan of care.
[2021-01-02 04:00] VITALS: BP 113/61
[2021-01-02 06:48] LABS: HEMATOCRIT 27.4 % (42.0-52.0); MEAN CORPUSCULAR VOLUME 112 FL (80-99); PLATELET COUNT 67 K/UL (150-450); RED BLOOD COUNT 2.44 M/UL (4.70-6.10); RED CELL DISTRIBUTION WIDTH 16.3 % (11.6-14.8); WHITE BLOOD COUNT 3.6 K/UL (4.8-10.8)
--- NOTE | 2021-01-02 07:17 | NUR ---
NURSE NOTES: Report received from Shalom PORTER, rounds made. Patient AOx4, calm. Bahraini speaking. Respirations even/unlabored on RA. Abdomen distended/firm, hypoactive bowel sounds, no NV. Scrotal swelling, condom cath in place, orange color. Bilateral lower extremities, pitting edema +3. Call light in reach, bed in lowest position will continue to monitor.
--- NOTE | 2021-01-02 07:20 | NUR ---
NURSE HAND-OFF: Important Events on Shift:WNL Patient Status: Diet: REG Pending Orders: Pending Results/Labs: Pending MD notification: Latest Vital Signs: Temperature 98.5 , Pulse 82 , B/P 113 /61 , Respiratory Rate 18 , O2 SAT 98 , Room Air, O2 Flow Rate . Vital Sign Comment: Latest Quarles Fall Score: 45 Fall Risk: High Risk Safety Measures: Call light Within Reach, Bed Alarm Zone 1, Side Rails Side Rails x2, Bed position Low and Locked. Fall Precautions: Yellow Socks Yellow Gown Door Sign Patient Fall Education Report given to GERMAN Johnston.
[2021-01-02 07:29] LABS: ALANINE AMINOTRANSFERASE 45 U/L (12-78); ALBUMIN 1.2 G/DL (3.4-5.0); ALBUMIN/GLOBULIN RATIO 0.2 (1.0-2.7); ALKALINE PHOSPHATASE 186 U/L (46-116); ANION GAP 5 mmol/L (5-15); ASPARTATE AMINO TRANSFERASE 97 U/L (15-37); BILIRUBIN,TOTAL 4.2 MG/DL (0.2-1.0); BLOOD UREA NITROGEN 15 mg/dL (7-18); CALCIUM 7.5 MG/DL (8.5-10.1); CARBON DIOXIDE 26 MMOL/L (21-32); CHLORIDE 100 MMOL/L (98-107); CREATININE 0.7 MG/DL (0.55-1.30); POTASSIUM 4.1 MMOL/L (3.5-5.1); SODIUM 130 MMOL/L (136-145)
[2021-01-02 07:30] LABS: BILIRUBIN,DIRECT 2.8 MG/DL (0.0-0.3)
[2021-01-02 08:00] VITALS: BP 116/60
[2021-01-02] MEDS: Multivitamin w/Minerals tab ORAL SCH ×2 (10:00→18:35)
[2021-01-02] MEDS: Ascorbic Acid 500mg tab ORAL SCH ×2 (10:00→18:36)
[2021-01-02] MEDS: cefTRIAXone 1 GM in D5W 55 ML IVPB SCH (10:40)
--- NOTE | 2021-01-02 11:00 | NUR ---
NURSE NOTES: Dr. Cortez notified (at bedside) of firm/tight edema to abdomen, BLE, labs/eMAR, I&Os reviewed. Orders for additional dose of Lasix 20 mg IVP x1. Will follow as ordered. Will update patient.
--- NOTE | 2021-01-02 11:30 | NUR ---
NURSE NOTES: Left posterior thigh with drainage, clear, applied optifoam and place chux pad beneath left thigh.
--- NOTE | 2021-01-02 11:50 | NUR ---
NURSE NOTES: Spoke with tech, patient has already eaten most of his lunch, was informed that US ABD will be done on Monday morning, so patient will need to be NPO at midnight on Monday, will endorse to next shift and add sign to door for reminder.
[2021-01-02 12:00] VITALS: BP 130/62
--- NOTE | 2021-01-02 12:11 | Surgery Progress Note ---
Surgery Progress Note Subjective Additional Comments still with edema given more lasix renal okay good uop Objective Last 24 Hour Vital Signs Date Time Temp Pulse Resp B/P (MAP) Pulse Ox O2 Delivery O2 Flow Rate FiO2 01/02/21 04:00 98.5 82 18 113/61 (78) 98 01/01/21 23:58 99.0 87 18 138/58 (84) 98 01/01/21 20:33 Room Air 01/01/21 20:00 98.9 81 18 128/65 (86) 99 01/01/21 16:00 98.0 81 18 130/63 (85) 98 I&O Intake and Output 01/01/21 01/02/21 19:00 07:00 Output Total 600 ml 400 ml Balance -600 ml -400 ml Output Urine Total 600 ml 400 ml # Voids 1 Dressing: saturated Cardiovascular: RSR Respiratory: decreased breath sounds Abdomen: soft, non-tender, present bowel sounds Extremities: edema, no cyanosis Laboratory Tests Test 01/02/21 05:35 White Blood Count 3.6 K/UL (4.8-10.8) L Red Blood Count 2.44 M/UL (4.70-6.10) L Hemoglobin 9.0 G/DL (14.2-18.0) L Hematocrit 27.4 % (42.0-52.0) L Mean Corpuscular Volume 112 FL (80-99) H Mean Corpuscular Hemoglobin 36.9 PG (27.0-31.0) H Mean Corpuscular Hemoglobin Concent 33.0 G/DL (32.0-36.0) Red Cell Distribution Width 16.3 % (11.6-14.8) H Platelet Count 67 K/UL (150-450) L Mean Platelet Volume 9.0 FL (6.5-10.1) Neutrophils (%) (Auto) % (45.0-75.0) Lymphocytes (%) (Auto) % (20.0-45.0) Monocytes (%) (Auto) % (1.0-10.0) Eosinophils (%) (Auto) % (0.0-3.0) Basophils (%) (Auto) % (0.0-2.0) Differential Total Cells Counted 100 Neutrophils % (Manual) 63 % (45-75) Lymphocytes % (Manual) 24 % (20-45) Monocytes % (Manual) 11 % (1-10) H Eosinophils % (Manual) 2 % (0-3) Basophils % (Manual) 0 % (0-2) Band Neutrophils 0 % (0-8) Platelet Estimate Decreased L Platelet Morphology Normal Hypochromasia 1+ Anisocytosis 1+ Macrocytosis 1+ Sodium Level 130 MMOL/L (136-145) L Potassium Level 4.1 MMOL/L (3.5-5.1) Chloride Level 100 MMOL/L (98-107) Carbon Dioxide Level 26 MMOL/L (21-32) Anion Gap 5 mmol/L (5-15) Blood Urea Nitrogen 15 mg/dL (7-18) Creatinine 0.7 MG/DL (0.55-1.30) Estimat Glomerular Filtration Rate > 60 mL/min (>60) Glucose Level 75 MG/DL (74-106) Calcium Level 7.5 MG/DL (8.5-10.1) L Total Bilirubin 4.2 MG/DL (0.2-1.0) H Direct Bilirubin 2.8 MG/DL (0.0-0.3) H Aspartate Amino Transf (AST/SGOT) 97 U/L (15-37) H Alanine Aminotransferase (ALT/SGPT) 45 U/L (12-78) Alkaline Phosphatase 186 U/L (46-116) H Total Protein 6.4 G/DL (6.4-8.2) Albumin 1.2 G/DL (3.4-5.0) L Globulin 5.2 g/dL Albumin/Globulin Ratio 0.2 (1.0-2.7) L Plan Problems: (1) Scrotal swelling Assessment & Plan: Pt presented on admission with Multiple Pressure Injuries. Trunk,including Scrotum and Bilat lower extremities are grossly edematous. Shaft of Penis is grossly edematous and malformed. Unstageable Pressure Injury noted at base of shaft of penis(L)2.5cm x (W)1.7cm. Base of wound is 90% fibrinous,10% surrounding mehnaz borders. Edges are macerated. Surrounding shaft of penis and Scrotum are erythematous. Scattered Purpuric areas noted to lumbar, Sacrum, R and L Gluteal cheeks. Surrounding skin are erythematous. Multiple Linear partial thickness lacerations noted to medial /posterior aspects of both upper thighs. Pt informed staff that legs of his shorts became too tight because of swelling and were cutting into his skin. Scattered purpuric areas also noted to posterior Upper L and R thighs. Unstageable Pressure Injury noted to L Heel. Base of wound is 100% necrotic. Edges are adherent to base of wound. R heel is boggy with non-blanchable erythema. Tx.Plan:Cleanse wound base of penis with Saline. Apply Therahoney every 3 days and prn. Fecal pouch around base of Penis. Change every 3 days and prn.. Apply Moisture Barrier Paste to Scrotum. Buttocks, and Medial/Posterior Aspects of both upper thighs with each Incontinence care. Cover Sacrum with Optifoam drsg. Change every 3 days and prn. Apply Betadine to L Heel. Cover with Optifoam drsg. Change every 3 days and prn. Elevate Legs with Pillows. Reposition at least every 2hours or as tolerated.45-year-old male scrotal swelling identified a base right side penis lesion 2 cm x 1 cm stage III with 10% eschar. Wound washed Thera honey place dressings placed. Patient needs significant fluid reduction as he is retaining. Lasix ordered. Care plan discussed with nursing and PCP. Continue local wound care. GI for liver insuff iciency. Liver: Cirrhosis with portal hypertension. Gallbladder and bile ducts: No calcified stones. No ductal dilation. Pancreas: Unremarkable. Spleen: Splenomegaly. Adrenals: Unremarkable. Kidneys and ureters: No renal calculi or obstructive changes. Stomach and bowel: Nonspecific thickening in the GI tract in light of the liver disease and third spacing. PELVIS: Appendix: No findings to suggest acute appendicitis. Bladder: Unremarkable. Reproductive: Large hydroceles ABDOMEN and PELVIS: Intraperitoneal space: Small amounts of fluid in the peritoneal cavity. Edema in the mesentery. Bones/joints: No acute fracture. Soft tissues: Anasarca. Vasculature: Collateral vessels. No abdominal aortic aneurysm. Lymph nodes: Inguinal nodes. IMPRESSION: Cirrhosis with portal hypertension. (2) Anasarca (3) Edema Alexandru Cortez Jan 02, 2021 12:11
--- NOTE | 2021-01-02 13:50 | General Progress Note ---
Subjective Allergies: Coded Allergies: No Known Allergies (Unverified , 12/21/20) Objective Last 24 Hour Vital Signs Date Time Temp Pulse Resp B/P (MAP) Pulse Ox O2 Delivery O2 Flow Rate FiO2 01/02/21 04:00 98.5 82 18 113/61 (78) 98 01/01/21 23:58 99.0 87 18 138/58 (84) 98 01/01/21 20:33 Room Air 01/01/21 20:00 98.9 81 18 128/65 (86) 99 01/01/21 16:00 98.0 81 18 130/63 (85) 98 Intake and Output 01/01/21 01/02/21 19:00 07:00 Output Total 600 ml 400 ml Balance -600 ml -400 ml Output Urine Total 600 ml 400 ml # Voids 1 Laboratory Tests 01/02/21 05:35: White Blood Count 3.6L, Red Blood Count 2.44L, Hemoglobin 9.0L, Hematocrit 27.4L , Mean Corpuscular Volume 112H, Mean Corpuscular Hemoglobin 36.9H, Mean Corpuscular Hemoglobin Concent 33.0, Red Cell Distribution Width 16.3H, Platelet Count 67L, Mean Platelet Volume 9.0, Neutrophils (%) (Auto) , Lymphocytes (%) (Auto) , Monocytes (%) (Auto) , Eosinophils (%) (Auto) , Basophils (%) (Auto) , Differential Total Cells Counted 100, Neutrophils % (Manual) 63, Lymphocytes % (Manual) 24, Monocytes % (Manual) 11H, Eosinophils % (Manual) 2, Basophils % (Manual) 0, Band Neutrophils 0, Platelet Estimate DecreasedL, Platelet Morphology Normal, Hypochromasia 1+, Anisocytosis 1+, Macrocytosis 1+, Sodium Level 130L, Potassium Level 4.1, Chloride Level 100, Carbon Dioxide Level 26, Anion Gap 5, Blood Urea Nitrogen 15, Creatinine 0.7, Estimat Glomerular Filtration Rate > 60, Glucose Level 75, Calcium Level 7.5L, Total Bilirubin 4.2H , Direct Bilirubin 2.8H, Aspartate Amino Transf (AST/SGOT) 97H, Alanine Aminotransferase (ALT/SGPT) 45, Alkaline Phosphatase 186H, Total Protein 6.4, Albumin 1.2L, Globulin 5.2, Albumin/Globulin Ratio 0.2L Height (Feet): 5 Height (Inches): 5.00 Weight (Pounds): 230 General Appearance: no apparent distress Neck: supple Cardiovascular: regular rhythm Respiratory/Chest: lungs clear Abdomen: non tender, soft Assessment/Plan Assessment/Plan: scortal swelling scortal wound chf htn comorbid obesity cont wound care iv abx lasix iv pt/ot eval dc plan to snf dw surgery Juni Montaño MD Jan 02, 2021 13:50
[2021-01-02 16:00] VITALS: BP 138/69
--- NOTE | 2021-01-02 18:46 | NUR ---
NURSE NOTES: Left posterior thigh with clear drainage, optifoam applied.
--- NOTE | 2021-01-02 19:10 | NUR ---
NURSE HAND-OFF: Important Events on Shift:Lasix 20 mg IV additional dose x1, US ABD will be done on 01/04 (patient will be NPO at [facility] on Wednesday 01/03) Patient Status: stable Diet: Low NA, Low Fat, High Protein, Odell BID Pending Orders: Labs AM, US ABD on 01/04 Pending Results/Labs:see list Pending MD notification:none Latest Vital Signs: Temperature 98.9 , Pulse 85 , B/P 144 /59 , Respiratory Rate 15 , O2 SAT 97 , Room Air, O2 Flow Rate . Vital Sign Comment: none Latest Quarles Fall Score: 45 Fall Risk: High Risk Safety Measures: Call light Within Reach, Bed Alarm Zone 1, Side Rails Side Rails x2, Bed position Low and Locked. Fall Precautions: Yellow Socks Yellow Gown Door Sign Patient Fall Education Report given to Amelia PORTER.
[2021-01-02 19:56] VITALS: BP 144/59
--- NOTE | 2021-01-02 23:34 | General Progress Note ---
Subjective Allergies: Coded Allergies: No Known Allergies (Unverified , 12/21/20) Objective Last 24 Hour Vital Signs Date Time Temp Pulse Resp B/P (MAP) Pulse Ox O2 Delivery O2 Flow Rate FiO2 01/02/21 20:43 Room Air 01/02/21 19:56 98.9 85 15 144/59 (87) 97 01/02/21 16:00 98.8 84 20 138/69 (92) 98 01/02/21 12:00 98.9 85 20 130/62 (84) 96 01/02/21 09:00 Room Air 01/02/21 08:00 98.3 88 20 116/60 (78) 98 01/02/21 04:00 98.5 82 18 113/61 (78) 98 01/01/21 23:58 99.0 87 18 138/58 (84) 98 Intake and Output 01/01/21 01/02/21 19:00 07:00 Output Total 600 ml 400 ml Balance -600 ml -400 ml Output Urine Total 600 ml 400 ml # Voids 1 Laboratory Tests 01/02/21 05:35: White Blood Count 3.6L, Red Blood Count 2.44L, Hemoglobin 9.0L, Hematocrit 27.4L , Mean Corpuscular Volume 112H, Mean Corpuscular Hemoglobin 36.9H, Mean Corpuscular Hemoglobin Concent 33.0, Red Cell Distribution Width 16.3H, Platelet Count 67L, Mean Platelet Volume 9.0, Neutrophils (%) (Auto) , Lymphocytes (%) (Auto) , Monocytes (%) (Auto) , Eosinophils (%) (Auto) , Basophils (%) (Auto) , Differential Total Cells Counted 100, Neutrophils % (Manual) 63, Lymphocytes % (Manual) 24, Monocytes % (Manual) 11H, Eosinophils % (Manual) 2, Basophils % (Manual) 0, Band Neutrophils 0, Platelet Estimate DecreasedL, Platelet Morphology Normal, Hypochromasia 1+, Anisocytosis 1+, Macrocytosis 1+, Sodium Level 130L, Potassium Level 4.1, Chloride Level 100, Carbon Dioxide Level 26, Anion Gap 5, Blood Urea Nitrogen 15, Creatinine 0.7, Estimat Glomerular Filtration Rate > 60, Glucose Level 75, Calcium Level 7.5L, Total Bilirubin 4.2H , Direct Bilirubin 2.8H, Aspartate Amino Transf (AST/SGOT) 97H, Alanine Aminotransferase (ALT/SGPT) 45, Alkaline Phosphatase 186H, Total Protein 6.4, Albumin 1.2L, Globulin 5.2, Albumin/Globulin Ratio 0.2L Height (Feet): 5 Height (Inches): 5.00 Weight (Pounds): 230 Assessment/Plan Assessment/Plan: GI CONSULT Dictated Thank you MD José Correa Payman MD Jan 02, 2021 23:34
[2021-01-02 23:41] VITALS: BP 151/57
[2021-01-03 03:56] VITALS: BP 147/60
--- NOTE | 2021-01-03 06:09 | NUR ---
NURSE HAND-OFF: Important Events on Shift:[]DCP Patient Status: [] Diet: [] Pending Orders: []AM labs, Abd US on Monday Pending Results/Labs:[] Pending MD notification:[] Latest Vital Signs: Temperature 98.6 , Pulse 79 , B/P 147 /60 , Respiratory Rate 18 , O2 SAT 97 , Room Air, O2 Flow Rate . Vital Sign Comment: [] Latest Quarles Fall Score: 45 Fall Risk: High Risk Safety Measures: Call light Within Reach, Bed Alarm Zone 1, Side Rails Side Rails x2, Bed position Low and Locked. Fall Precautions: Yellow Socks Yellow Gown Door Sign Patient Fall Education Report given to [].
--- NOTE | 2021-01-03 06:14 | Consultation ---
DATE OF CONSULTATION: 01/02/2021 GASTROENTEROLOGY CONSULTATION CHIEF COMPLAINT: I was asked to see this patient for evaluation of cirrhosis. HISTORY OF PRESENT ILLNESS: The patient is a 45-year-old man who comes into the hospital due to increasing edema and scrotal swelling. The patient drinks alcohol for at least 5 years. He downplays the alcohol use and says he does not drink much, but when questioned again, he says a bottle of vodka lasts him 5 days. He complains of scrotal swelling and generalized edema. He cannot recall ever having any liver disease diagnosed in the past. PAST MEDICAL HISTORY: History of left knee surgery. FAMILY HISTORY: Positive for liver disease and diabetes. SOCIAL HISTORY: The patient has 1 child in [facility]. He does not smoke, but he drinks as described above. REVIEW OF SYSTEMS: Otherwise negative. PHYSICAL EXAMINATION: GENERAL: An obese man with obvious fluid overload in his legs and abdomen. HEENT: Normocephalic and atraumatic. Sclerae are icteric. Oropharynx clear. NECK: Supple. CHEST: Clear to auscultation. CARDIOVASCULAR: Revealed a regular rate. ABDOMEN: Distended with edema. Examination is difficult due to the extent of truncal edema. EXTREMITIES: Revealed edema in both legs as well as scrotal edema and generalized anasarca. LABORATORY DATA: Noted. ASSESSMENT: This patient presents with evidence of cirrhosis based on imaging studies and also physical examination and laboratory parameters. He appears to have some degree of alcoholic hepatitis as well. However, he is not a candidate for steroid treatment for alcoholic hepatitis given his scrotal ulcer, need for antibiotics, and therefore, infectious risk. Instead, I would give him Trental as an alternative for acute alcoholic hepatitis. I will also treat his bowel serologies to rule out any infections. He should receive diuretics. I would initially be giving him a lower dose of Lasix of 20 mg and Aldactone 50 mg. However, he may later need a higher dose if he does not respond. Folic acid will be replaced given his history of alcoholism, and he should also receive subcu heparin for deep vein thrombosis prophylaxis. Imaging of his legs will be necessary to rule out deep vein thrombosis. His overall prognosis is poor given his presentation and his imaging finding of cirrhosis. Alpha-fetoprotein should also be checked to rule out liver cancer. RECOMMENDATIONS: Per above discussion and per orders written in the chart. Thank you for asking me to participate in the care of this patient. Papito Kumar M.D. DR: CHUCKIE JOB#: [id number] CC: [email or web address]
[2021-01-03 06:29] LABS: HEMATOCRIT 27.4 % (42.0-52.0); HEMOGLOBIN 8.7 G/DL (14.2-18.0); MEAN CORPUSCULAR VOLUME 113 FL (80-99); PLATELET COUNT 60 K/UL (150-450); RED BLOOD COUNT 2.43 M/UL (4.70-6.10); RED CELL DISTRIBUTION WIDTH 16.5 % (11.6-14.8); WHITE BLOOD COUNT 3.5 K/UL (4.8-10.8)
[2021-01-03 06:36] LABS: INR 1.8 (0.9-1.1)
[2021-01-03 06:50] LABS: ALANINE AMINOTRANSFERASE 41 U/L (12-78); ALBUMIN 1.2 G/DL (3.4-5.0); ALBUMIN/GLOBULIN RATIO 0.2 (1.0-2.7); ALKALINE PHOSPHATASE 193 U/L (46-116); AMYLASE 80 U/L (25-115); ANION GAP 3 mmol/L (5-15); ASPARTATE AMINO TRANSFERASE 96 U/L (15-37); BILIRUBIN,TOTAL 3.8 MG/DL (0.2-1.0); BLOOD UREA NITROGEN 13 mg/dL (7-18); CALCIUM 7.4 MG/DL (8.5-10.1); CARBON DIOXIDE 27 MMOL/L (21-32); CHLORIDE 102 MMOL/L (98-107); CREATININE 0.7 MG/DL (0.55-1.30); POTASSIUM 4.2 MMOL/L (3.5-5.1); SODIUM 132 MMOL/L (136-145)
[2021-01-03 06:56] LABS: BILIRUBIN,DIRECT 2.6 MG/DL (0.0-0.3)
--- NOTE | 2021-01-03 07:20 | NUR ---
NURSE NOTES: Handoff received from Amelia PORTER. PAtient is awake and alert, no signs of acute distress noted, short of breath while speaking on room air. No IV access, IV dislodged during night clerk. PAtient Addendum: 01/03/21 at 0801 by Nelson So RN RN Patient is edematous LORIE lower extremities and scrotum. Patient updated on plan of care and asked to minimize fluid intake. PAtient verbalized understanding. Bed is low and locked, side rails up x2, call light is within reach.
[2021-01-03 08:00] VITALS: BP 143/70
[2021-01-03] MEDS ORDERED: Heparin 5000 units/ml inj SUBQ SCH (09:00)
--- NOTE | 2021-01-03 09:05 | General Progress Note ---
Subjective Constitutional: Denies: no symptoms, chills, diaphoresis, fever, malaise, weakness, other HEENT: Denies: no symptoms, eye pain, blurred vision, tearing, double vision, ear pain, ear discharge, nose pain, nose congestion, throat pain, throat swelling, mouth pain, mouth swelling, other Cardiovascular: Denies: no symptoms, chest pain, edema, irregular heart rate, lightheadedness, palpitations, syncope, other Respiratory: Denies: no symptoms, cough, orthopnea, shortness of breath, SOB with excertion, SOB at rest, sputum, stridor, wheezing, other Gastrointestinal/Abdominal: Denies: no symptoms, abdomen distended, abdominal pain, black stools, tarry stools, blood in stool, constipated, diarrhea, difficulty swallowing, nausea, poor appetite, poor fluid intake, rectal bleeding, vomiting, other Genitourinary: Denies: no symptoms, burning, discharge, frequency, flank pain, hematuria, incontinence, pain, urgency, other Neurologic/Psychiatric: Denies: no symptoms, anxiety, depressed, emotional problems, headache, numbness, paresthesia, pre-existing deficit, seizure, tingling, tremors, weakness, other Endocrine: Denies: no symptoms, excessive sweating, flushing, intolerance to cold, intolerance to heat, increased hunger, increased thirst, increased urine, unexplained weight gain, unexplained weight loss, other Allergies: Coded Allergies: No Known Allergies (Unverified , 12/21/20) Subjective 01/03 meds notd, no bleeding, continues to have fluid overload, scrotal swelling Objective Last 24 Hour Vital Signs Date Time Temp Pulse Resp B/P (MAP) Pulse Ox O2 Delivery O2 Flow Rate FiO2 01/03/21 03:56 98.6 79 18 147/60 (89) 97 01/02/21 23:41 98.4 82 16 151/57 (88) 97 01/02/21 20:43 Room Air 01/02/21 19:56 98.9 85 15 144/59 (87) 97 01/02/21 16:00 98.8 84 20 138/69 (92) 98 01/02/21 12:00 98.9 85 20 130/62 (84) 96 Intake and Output 01/02/21 01/03/21 19:00 07:00 Intake Total 720 ml Output Total 1050 ml Balance -330 ml Intake Oral 720 ml Output Urine Total 1050 ml Laboratory Tests 01/03/21 06:15: White Blood Count 3.5L, Red Blood Count 2.43L, Hemoglobin 8.7L, Hematocrit 27.4L , Mean Corpuscular Volume 113H, Mean Corpuscular Hemoglobin 35.9H, Mean Corpuscular Hemoglobin Concent 31.8L, Red Cell Distribution Width 16.5H, Platelet Count 60L, Mean Platelet Volume 9.0, Neutrophils (%) (Auto) , Lymphocytes (%) (Auto) , Monocytes (%) (Auto) , Eosinophils (%) (Auto) , Basophils (%) (Auto) , Erythrocyte Sedimentation Rate 118H, Prothrombin Time 19.0H, Prothromb Time International Ratio 1.8H, Activated Partial Thromboplast Time 38H, Sodium Level 132L, Potassium Level 4.2, Chloride Level 102, Carbon Dioxide Level 27, Anion Gap 3L, Blood Urea Nitrogen 13, Creatinine 0.7, Estimat Glomerular Filtration Rate > 60, Glucose Level 72L, Lactic Acid Level 0.70, Calcium Level 7.4L, Total Bilirubin 3.8H, Direct Bilirubin 2.6H, Aspartate Amino Transf (AST/SGOT) 96H, Alanine Aminotransferase (ALT/SGPT) 41, Alkaline Phosphatase 193H, Ammonia 40H, C-Reactive Protein, Quantitative 4.0H, Total Protein 6.2L, Albumin 1.2L, Globulin 5.0, Albumin/Globulin Ratio 0.2L, Amylase Level 80, Lipase 447H, Alpha Fetoprotein [Pending], Hepatitis A IgM Antibody [Pending], Hepatitis B Surface Antigen [Pending], Hepatitis B Core IgM Antibody [Pending], Hepatitis C Antibody [Pending] Height (Feet): 5 Height (Inches): 5.00 Weight (Pounds): 230 Objective General Appearance: no apparent distress Neck: supple Cardiovascular: regular rhythm Respiratory/Chest: lungs clear Abdomen: non tender, soft Assessment/Plan Assessment/Plan: Covering IM Assessment and Recs scortal swelling scortal wound chf htn comorbid obesity cont wound care iv abx lasix iv pt/ot eval dc plan to snf dw surgery Diuresis as per cards Jl Pavon MD Jan 03, 2021 09:05
[2021-01-03] MEDS: Thiamine 100mg tab ORAL SCH (09:56)
[2021-01-03] MEDS: Multivitamin w/Minerals tab ORAL SCH ×2 (09:56→17:24)
[2021-01-03] MEDS: Spironolactone 50mg tab ORAL SCH (09:56)
[2021-01-03] MEDS: Ascorbic Acid 500mg tab ORAL SCH ×2 (09:56→17:24)
--- NOTE | 2021-01-03 10:30 | NUR ---
NURSE NOTES: Patient was able to walk down the hallway with PT and took a shower with assistance from nursing students. Wound care administered per MD order.
--- NOTE | 2021-01-03 11:50 | Surgery Progress Note ---
Surgery Progress Note Subjective Additional Comments ambulatory still fluid overloaded no n/v labs noted shower today Objective Last 24 Hour Vital Signs Date Time Temp Pulse Resp B/P (MAP) Pulse Ox O2 Delivery O2 Flow Rate FiO2 01/03/21 09:56 143/70 01/03/21 09:00 Room Air 01/03/21 08:00 98.1 80 22 143/70 (94) 97 01/03/21 03:56 98.6 79 18 147/60 (89) 97 01/02/21 23:41 98.4 82 16 151/57 (88) 97 01/02/21 20:43 Room Air 01/02/21 19:56 98.9 85 15 144/59 (87) 97 01/02/21 16:00 98.8 84 20 138/69 (92) 98 01/02/21 12:00 98.9 85 20 130/62 (84) 96 I&O Intake and Output 01/02/21 01/03/21 19:00 07:00 Intake Total 720 ml Output Total 1050 ml Balance -330 ml Intake Oral 720 ml Output Urine Total 1050 ml Dressing: saturated Cardiovascular: RSR Respiratory: decreased breath sounds Abdomen: soft, distended, non-tender, present bowel sounds Extremities: edema, no tenderness, no cyanosis Laboratory Tests Test 01/03/21 06:15 White Blood Count 3.5 K/UL (4.8-10.8) L Red Blood Count 2.43 M/UL (4.70-6.10) L Hemoglobin 8.7 G/DL (14.2-18.0) L Hematocrit 27.4 % (42.0-52.0) L Mean Corpuscular Volume 113 FL (80-99) H Mean Corpuscular Hemoglobin 35.9 PG (27.0-31.0) H Mean Corpuscular Hemoglobin Concent 31.8 G/DL (32.0-36.0) L Red Cell Distribution Width 16.5 % (11.6-14.8) H Platelet Count 60 K/UL (150-450) L Mean Platelet Volume 9.0 FL (6.5-10.1) Neutrophils (%) (Auto) % (45.0-75.0) Lymphocytes (%) (Auto) % (20.0-45.0) Monocytes (%) (Auto) % (1.0-10.0) Eosinophils (%) (Auto) % (0.0-3.0) Basophils (%) (Auto) % (0.0-2.0) Erythrocyte Sedimentation Rate 118 MM/HR (0-15) H Prothrombin Time 19.0 SEC (9.30-11.50) H Prothromb Time International Ratio 1.8 (0.9-1.1) H Activated Partial Thromboplast Time 38 SEC (23-33) H Sodium Level 132 MMOL/L (136-145) L Potassium Level 4.2 MMOL/L (3.5-5.1) Chloride Level 102 MMOL/L (98-107) Carbon Dioxide Level 27 MMOL/L (21-32) Anion Gap 3 mmol/L (5-15) L Blood Urea Nitrogen 13 mg/dL (7-18) Creatinine 0.7 MG/DL (0.55-1.30) Estimat Glomerular Filtration Rate > 60 mL/min (>60) Glucose Level 72 MG/DL (74-106) L Lactic Acid Level 0.70 mmol/L (0.4-2.0) Calcium Level 7.4 MG/DL (8.5-10.1) L Total Bilirubin 3.8 MG/DL (0.2-1.0) H Direct Bilirubin 2.6 MG/DL (0.0-0.3) H Aspartate Amino Transf (AST/SGOT) 96 U/L (15-37) H Alanine Aminotransferase (ALT/SGPT) 41 U/L (12-78) Alkaline Phosphatase 193 U/L (46-116) H Ammonia 40 umol/L (11-32) H C-Reactive Protein, Quantitative 4.0 mg/dL (0.00-0.90) H Total Protein 6.2 G/DL (6.4-8.2) L Albumin 1.2 G/DL (3.4-5.0) L Globulin 5.0 g/dL Albumin/Globulin Ratio 0.2 (1.0-2.7) L Amylase Level 80 U/L (25-115) Lipase 447 U/L (73-393) H Alpha Fetoprotein Pending Hepatitis A IgM Antibody Pending Hepatitis B Surface Antigen Pending Hepatitis B Core IgM Antibody Pending Hepatitis C Antibody Pending HIV (1&2) Antibody Rapid Pending Plan Problems: (1) Scrotal swelling Assessment & Plan: Pt presented on admission with Multiple Pressure Injuries. Trunk,including Scrotum and Bilat lower extremities are grossly edematous. Shaft of Penis is grossly edematous and malformed. Unstageable Pressure Injury noted at base of shaft of penis(L)2.5cm x (W)1.7cm. Base of wound is 90% fibrinous,10% surrounding mehnaz borders. Edges are macerated. Surrounding shaft of penis and Scrotum are erythematous. Scattered Purpuric areas noted to lumbar, Sacrum, R and L Gluteal cheeks. Surrounding skin are erythematous. Multiple Linear partial thickness lacerations noted to medial /posterior aspects of both upper thighs. Pt informed staff that legs of his shorts became too tight because of swelling and were cutting into his skin. Scattered purpuric areas also noted to posterior Upper L and R thighs. Unstageable Pressure Injury noted to L Heel. Base of wound is 100% necrotic. Edges are adherent to base of wound. R heel is boggy with non-blanchable erythema. Tx.Plan:Cleanse wound base of penis with Saline. Apply Therahoney every 3 days and prn. Fecal pouch around base of Penis. Change every 3 days and prn.. Apply Moisture Barrier Paste to Scrotum. Buttocks, and Medial/Posterior Aspects of both upper thighs with each Incontinence care. Cover Sacrum with Optifoam drsg. Change every 3 days and prn. Apply Betadine to L Heel. Cover with Optifoam drsg. Change every 3 days and prn. Elevate Legs with Pillows. Reposition at least every 2hours or as tolerated.45-year-old male scrotal swelling identified a base right side penis lesion 2 cm x 1 cm stage III with 10% eschar. Wound washed Thera honey place dressings placed. Patient needs significant fluid reduction as he is retaining. Lasix ordered. Care plan discussed with nursing and PCP. Continue local wound care. GI for liver insufficiency. Liver: Cirrhosis with portal hypertension. Gallbladder and bile ducts: No calcified stones. No ductal dilation. Pancreas: Unremarkable. Spleen: Splenomegaly. Adrenals: Unremarkable. Kidneys and ureters: No renal calculi or obstructive changes. Stomach and bowel: Nonspecific thickening in the GI tract in light of the liver disease and third spacing. PELVIS: Appendix: No findings to suggest acute appendicitis. Bladder: Unremarkable. Reproductive: Large hydroceles ABDOMEN and PELVIS: Intraperitoneal space: Small amounts of fluid in the peritoneal cavity. Edema in the mesentery. Bones/joints: No acute fracture. Soft tissues: Anasarca. Vasculature: Collateral vessels. No abdominal aortic aneurysm. Lymph nodes: Inguinal nodes. IMPRESSION: Cirrhosis with portal hypertension. (2) Anasarca (3) Edema Alexandru Cortez Jan 03, 2021 11:50
[2021-01-03 12:00] VITALS: BP 137/70
[2021-01-03] MEDS: cefTRIAXone 1 GM in D5W 55 ML IVPB SCH (12:48)
--- NOTE | 2021-01-03 13:16 | Diagnostic Imaging Report ---
EXAM: US Duplex Bilateral Lower Extremities Veins CLINICAL HISTORY: JOHNNIELL TECHNIQUE: Real-time duplex ultrasound scan of the bilateral lower extremity veins integrating B-mode two-dimensional vascular structure, Doppler spectral analysis, color flow Doppler imaging and compression. COMPARISON: No relevant prior studies available. FINDINGS: Right deep veins: Right SFV was noncompressible, however patent flow and augmentation is seen with Doppler interrogation. No DVT in the right common femoral, proximal deep femoral or popliteal veins. Left deep veins: The left common femoral and proximal superficial veins were noncompressible, however, flow and augmentation were seen with Doppler interrogation. No DVT in the left common femoral, femoral, proximal deep femoral or popliteal veins. Soft tissues: Diffuse soft tissue swelling/edema in bilateral lower extremities. No abnormal fluid collections identified. No popliteal cyst. IMPRESSION: 1. No DVT identified in bilateral lower extremities. 2. Diffuse soft tissue swelling/edema in bilateral lower extremities. No abnormal fluid collections identified.
--- NOTE | 2021-01-03 15:44 | Diagnostic Imaging Report ---
EXAM: US Abdomen Complete CLINICAL HISTORY: ABN LABS TECHNIQUE: Real-time ultrasound of the abdomen with image documentation. COMPARISON: CT abdomen and pelvis dated 12/28/20. FINDINGS: Liver: Cirrhotic/nodular hepatic contour. Coarsened echotexture consistent with underlying parenchymal disease. No focal liver lesions identified. Right hepatic lobe diameter of 11.21 cm. Portal vein is patent with hepatopetal flow. Gallbladder: Gallbladder is contracted. No gallstones identified. Common bile duct: Unremarkable as visualized. No stones. No dilation. Pancreas: Visualized portions of the pancreatic head appear unremarkable. Pancreatic body and tail are obscured by bowel gas. Kidneys: Right kidney length of 10.7 cm. Left kidney length of 13.6 cm. Normal cortical thickness. No visible parenchymal lesions. No visible stones. No hydronephrosis. Spleen: Splenomegaly, with a diameter of 17.4 cm. Aorta: Visualized proximal portions appear unremarkable without evidence of aneurysm. Mid and distal abdominal aorta are obscured by overlying bowel gas. Inferior vena cava: Unremarkable. Free fluid: Mild volume perihepatic free fluid/ascites. IMPRESSION: 1. Cirrhotic/nodular hepatic contour. Coarsened echotexture consistent with underlying parenchymal disease. No focal liver lesions identified. 2. Splenomegaly, with a diameter of 17.4 cm. 3. Mild volume perihepatic free fluid/ascites.
[2021-01-03 16:00] VITALS: BP 135/66
--- NOTE | 2021-01-03 18:37 | NUR ---
NURSE HAND-OFF: Important Events on Shift:[venous duplex] Patient Status: stable Diet: low salt high protein Pending Orders: Pending Results/Labs: Pending MD notification: Latest Vital Signs: Temperature 97.2 , Pulse 74 , B/P 135 /66 , Respiratory Rate 20 , O2 SAT 97 , Room Air, O2 Flow Rate . Vital Sign Comment: stable Latest Quarles Fall Score: 45 Fall Risk: High Risk Safety Measures: Call light Within Reach, Bed Alarm Zone 1, Side Rails Side Rails x2, Bed position Low and Locked. Fall Precautions: Yellow Socks Yellow Gown Door Sign Patient Fall Education Report given to Amelia PORTER.
--- NOTE | 2021-01-03 19:41 | NUR ---
NURSE NOTES: Received patient awake, alert, verbal, understand little Greenlandic, resting in bed without complaints.
--- NOTE | 2021-01-03 19:46 | General Progress Note ---
Subjective Allergies: Coded Allergies: No Known Allergies (Unverified , 12/21/20) Subjective Feels OK Tolerating PO Objective Last 24 Hour Vital Signs Date Time Temp Pulse Resp B/P (MAP) Pulse Ox O2 Delivery O2 Flow Rate FiO2 01/03/21 17:24 135/66 01/03/21 16:00 97.2 74 20 135/66 (89) 97 01/03/21 12:48 143/70 01/03/21 12:00 97.6 78 20 137/70 (92) 98 01/03/21 09:56 143/70 01/03/21 09:00 Room Air 01/03/21 08:00 98.1 80 22 143/70 (94) 97 01/03/21 03:56 98.6 79 18 147/60 (89) 97 01/02/21 23:41 98.4 82 16 151/57 (88) 97 01/02/21 20:43 Room Air 01/02/21 19:56 98.9 85 15 144/59 (87) 97 Intake and Output 01/02/21 01/03/21 19:00 07:00 Intake Total 720 ml Output Total 1050 ml Balance -330 ml Intake Oral 720 ml Output Urine Total 1050 ml Laboratory Tests 01/03/21 06:15: White Blood Count 3.5L, Red Blood Count 2.43L, Hemoglobin 8.7L, Hematocrit 27.4L , Mean Corpuscular Volume 113H, Mean Corpuscular Hemoglobin 35.9H, Mean Corpuscular Hemoglobin Concent 31.8L, Red Cell Distribution Width 16.5H, Platelet Count 60L, Mean Platelet Volume 9.0, Neutrophils (%) (Auto) , Lymphocytes (%) (Auto) , Monocytes (%) (Auto) , Eosinophils (%) (Auto) , Basophils (%) (Auto) , Erythrocyte Sedimentation Rate 118H, Prothrombin Time 19.0H, Prothromb Time International Ratio 1.8H, Activated Partial Thromboplast Time 38H, Sodium Level 132L, Potassium Level 4.2, Chloride Level 102, Carbon Dioxide Level 27, Anion Gap 3L, Blood Urea Nitrogen 13, Creatinine 0.7, Estimat Glomerular Filtration Rate > 60, Glucose Level 72L, Lactic Acid Level 0.70, Calcium Level 7.4L, Total Bilirubin 3.8H, Direct Bilirubin 2.6H, Aspartate Amino Transf (AST/SGOT) 96H, Alanine Aminotransferase (ALT/SGPT) 41, Alkaline Phosphatase 193H, Ammonia 40H, C-Reactive Protein, Quantitative 4.0H, Total Protein 6.2L, Albumin 1.2L, Globulin 5.0, Albumin/Globulin Ratio 0.2L, Amylase Level 80, Lipase 447H, Alpha Fetoprotein [Pending], Hepatitis A IgM Antibody [Pending], Hepatitis B Surface Antigen [Pending], Hepatitis B Core IgM Antibody [Pending], Hepatitis C Antibody [Pending], HIV (1&2) Antibody Rapid [Pending] Height (Feet): 5 Height (Inches): 5.00 Weight (Pounds): 230 Objective Obese man NCAT supple CTA RR abd obese, distended Ext (++) edema, anasarca Assessment/Plan Assessment/Plan: Assessment - EtOH cirrhosis - edema - anemia - thrombocytopenia - abnormal LFT Recommendations - Follow labs - diuresis - d/c EtOH - Folic acid Papito Kumar MD Jan 03, 2021 19:46
[2021-01-03 19:57] VITALS: BP 132/73
[2021-01-04 04:03] VITALS: BP 134/68
--- NOTE | 2021-01-04 06:30 | Hematology/Onc Progress Note ---
Assessment/Plan Assessment/Plan pancytopenia due to cirrhosis coagulopathy also due to cirrhosis bleeding disorder scortal wound chf htn comorbid obesity cont wound care iv abx lasix iv pt/ot eval dc plan to snf dw surgery Diuresis as per cards Subjective Constitutional: Denies: no symptoms, chills, fever, malaise, weakness, other HEENT: Denies: no symptoms, eye pain, blurred vision, tearing, double vision, ear pain, ear discharge, nose pain, nose congestion, throat pain, throat swelling, mouth pain, mouth swelling, other Cardiovascular: Denies: no symptoms, chest pain, edema, irregular heart rate, lightheadedness, palpitations, syncope, other Genitourinary: Denies: no symptoms, burning, discharge, frequency, flank pain, hematuria, incontinence, pain, urgency, other Neurologic/Psychiatric: Denies: no symptoms, anxiety, depressed, emotional problems, headache, numbness, paresthesia, pre-existing deficit, seizure, tingling, tremors, weakness, other Endocrine: Denies: no symptoms, excessive sweating, flushing, intolerance to cold, intolerance to heat, increased hunger, increased thirst, increased urine, unexplained weight gain, unexplained weight loss, other Hematologic/Lymphatic: Denies: no symptoms, anemia, easy bleeding, easy bruising, adenopathy, other Allergies: Coded Allergies: No Known Allergies (Unverified , 12/21/20) Subjective 01/03 meds notd, no bleeding, continues to have fluid overload, scrotal swelling 01/04 imaging reviewed, wbc 3, hgb 8.7, otherwise imaging shows cirrhosis Objective Objective Current Medications Medications (Trade) Dose Ordered Sig/Nelsy Route PRN Reason Start Time Stop Time Status Last Admin Dose Admin Ascorbic Acid (Vitamin C) 250 mg TWICE A DAY ORAL 12/29/20 18:00 01/28/21 17:59 01/03/21 17:24 Ceftriaxone Sodium 1 gm/ Dextrose 55 ml @ 110 mls/hr Q24H IVPB 12/29/20 11:00 01/05/21 10:59 01/03/21 12:48 Furosemide (Lasix) 20 mg DAILY IV 12/29/20 10:00 01/28/21 09:59 01/03/21 09:00 Multivitamins Therapeutic (Therapeutic Multivitamin) 1 ea BID ORAL 12/29/20 18:00 01/28/21 17:59 01/03/21 17:24 Pentoxifylline (TRENtal) 400 mg THREE TIMES A DAY ORAL 01/03/21 09:00 04/03/21 08:59 01/03/21 17:24 Spironolactone (Aldactone) 50 mg DAILY ORAL 01/03/21 09:00 02/02/21 08:59 01/03/21 09:56 Thiamine HCl (Vitamin B1) 100 mg DAILY ORAL 01/03/21 09:00 02/02/21 08:59 01/03/21 09:56 Last 24 Hour Vital Signs Date Time Temp Pulse Resp B/P (MAP) Pulse Ox O2 Delivery O2 Flow Rate FiO2 01/04/21 04:03 98.0 16 134/68 (90) 95 01/03/21 20:11 Room Air 01/03/21 19:57 98.2 78 18 132/73 (92) 96 01/03/21 17:24 135/66 01/03/21 16:00 97.2 74 20 135/66 (89) 97 01/03/21 12:48 143/70 01/03/21 12:00 97.6 78 20 137/70 (92) 98 01/03/21 09:56 143/70 01/03/21 09:00 Room Air 01/03/21 08:00 98.1 80 22 143/70 (94) 97 01/03/21 03:56 98.6 79 18 147/60 (89) 97 01/02/21 23:41 98.4 82 16 151/57 (88) 97 01/02/21 20:43 Room Air 01/02/21 19:56 98.9 85 15 144/59 (87) 97 01/02/21 16:00 98.8 84 20 138/69 (92) 98 01/02/21 12:00 98.9 85 20 130/62 (84) 96 01/02/21 09:00 Room Air 01/02/21 08:00 98.3 88 20 116/60 (78) 98 Intake and Output 01/03/21 01/04/21 19:00 07:00 Intake Total 480 ml Output Total 600 ml Balance -120 ml Intake Oral 480 ml Output Urine Total 600 ml # Voids 4 # Bowel Movements 1 Labs Test 01/02/21 05:35 01/03/21 06:15 White Blood Count 3.6 K/UL (4.8-10.8) 3.5 K/UL (4.8-10.8) Red Blood Count 2.44 M/UL (4.70-6.10) 2.43 M/UL (4.70-6.10) Hemoglobin 9.0 G/DL (14.2-18.0) 8.7 G/DL (14.2-18.0) Hematocrit 27.4 % (42.0-52.0) 27.4 % (42.0-52.0) Mean Corpuscular Volume 112 FL (80-99) 113 FL (80-99) Mean Corpuscular Hemoglobin 36.9 PG (27.0-31.0) 35.9 PG (27.0-31.0) Mean Corpuscular Hemoglobin Concent 33.0 G/DL (32.0-36.0) 31.8 G/DL (32.0-36.0) Red Cell Distribution Width 16.3 % (11.6-14.8) 16.5 % (11.6-14.8) Platelet Count 67 K/UL (150-450) 60 K/UL (150-450) Mean Platelet Volume 9.0 FL (6.5-10.1) 9.0 FL (6.5-10.1) Neutrophils (%) (Auto) % (45.0-75.0) % (45.0-75.0) Lymphocytes (%) (Auto) % (20.0-45.0) % (20.0-45.0) Monocytes (%) (Auto) % (1.0-10.0) % (1.0-10.0) Eosinophils (%) (Auto) % (0.0-3.0) % (0.0-3.0) Basophils (%) (Auto) % (0.0-2.0) % (0.0-2.0) Differential Total Cells Counted 100 Neutrophils % (Manual) 63 % (45-75) Lymphocytes % (Manual) 24 % (20-45) Monocytes % (Manual) 11 % (1-10) Eosinophils % (Manual) 2 % (0-3) Basophils % (Manual) 0 % (0-2) Band Neutrophils 0 % (0-8) Platelet Estimate Decreased Platelet Morphology Normal Hypochromasia 1+ Anisocytosis 1+ Macrocytosis 1+ Sodium Level 130 MMOL/L (136-145) 132 MMOL/L (136-145) Potassium Level 4.1 MMOL/L (3.5-5.1) 4.2 MMOL/L (3.5-5.1) Chloride Level 100 MMOL/L (98-107) 102 MMOL/L (98-107) Carbon Dioxide Level 26 MMOL/L (21-32) 27 MMOL/L (21-32) Anion Gap 5 mmol/L (5-15) 3 mmol/L (5-15) Blood Urea Nitrogen 15 mg/dL (7-18) 13 mg/dL (7-18) Creatinine 0.7 MG/DL (0.55-1.30) 0.7 MG/DL (0.55-1.30) Estimat Glomerular Filtration Rate > 60 mL/min (>60) > 60 mL/min (>60) Glucose Level 75 MG/DL (74-106) 72 MG/DL (74-106) Calcium Level 7.5 MG/DL (8.5-10.1) 7.4 MG/DL (8.5-10.1) Total Bilirubin 4.2 MG/DL (0.2-1.0) 3.8 MG/DL (0.2-1.0) Direct Bilirubin 2.8 MG/DL (0.0-0.3) 2.6 MG/DL (0.0-0.3) Aspartate Amino Transf (AST/SGOT) 97 U/L (15-37) 96 U/L (15-37) Alanine Aminotransferase (ALT/SGPT) 45 U/L (12-78) 41 U/L (12-78) Alkaline Phosphatase 186 U/L (46-116) 193 U/L (46-116) Total Protein 6.4 G/DL (6.4-8.2) 6.2 G/DL (6.4-8.2) Albumin 1.2 G/DL (3.4-5.0) 1.2 G/DL (3.4-5.0) Globulin 5.2 g/dL 5.0 g/dL Albumin/Globulin Ratio 0.2 (1.0-2.7) 0.2 (1.0-2.7) Erythrocyte Sedimentation Rate 118 MM/HR (0-15) Prothrombin Time 19.0 SEC (9.30-11.50) Prothromb Time International Ratio 1.8 (0.9-1.1) Activated Partial Thromboplast Time 38 SEC (23-33) Lactic Acid Level 0.70 mmol/L (0.4-2.0) Ammonia 40 umol/L (11-32) C-Reactive Protein, Quantitative 4.0 mg/dL (0.00-0.90) Amylase Level 80 U/L (25-115) Lipase 447 U/L (73-393) Height (Feet): 5 Height (Inches): 5.00 Weight (Pounds): 230 Objective General Appearance: no apparent distress Neck: supple Cardiovascular: regular rhythm Respiratory/Chest: lungs clear Abdomen: non tender, soft Jl Pavon MD Jan 04, 2021 06:30
--- NOTE | 2021-01-04 07:29 | NUR ---
NURSE HAND-OFF: Important Events on Shift:[] Patient Status: [] Diet: []NPO Pending Orders: []Abd US Pending Results/Labs:[] Pending MD notification:[] Latest Vital Signs: Temperature 98.0 , Pulse 78 , B/P 134 /68 , Respiratory Rate 16 , O2 SAT 95 , Room Air, O2 Flow Rate . Vital Sign Comment: [] Latest Quarles Fall Score: 45 Fall Risk: High Risk Safety Measures: Call light Within Reach, Bed Alarm Zone 1, Side Rails Side Rails x2, Bed position Low and Locked. Fall Precautions: Yellow Socks Yellow Gown Door Sign Patient Fall Education Report given to [].
[2021-01-04 08:00] VITALS: BP 123/54
[2021-01-04] MEDS: Multivitamin w/Minerals tab ORAL SCH ×2 (08:43→17:02)
[2021-01-04] MEDS: Spironolactone 50mg tab ORAL SCH (08:44)
[2021-01-04] MEDS: Ascorbic Acid 500mg tab ORAL SCH ×2 (08:44→17:04)
[2021-01-04] MEDS: Thiamine 100mg tab ORAL SCH (08:44)
[2021-01-04] MEDS: cefTRIAXone 1 GM in D5W 55 ML IVPB SCH (11:00)
[2021-01-04 12:00] VITALS: BP 114/57
--- NOTE | 2021-01-04 13:06 | Surgery Progress Note ---
Surgery Progress Note Subjective Additional Comments US noted liver anasarca more lasix Objective Last 24 Hour Vital Signs Date Time Temp Pulse Resp B/P (MAP) Pulse Ox O2 Delivery O2 Flow Rate FiO2 01/04/21 12:56 114/57 01/04/21 09:00 Room Air 01/04/21 08:44 123/54 01/04/21 08:00 97.6 74 19 123/54 (77) 97 01/04/21 04:03 98.0 16 134/68 (90) 95 01/03/21 20:11 Room Air 01/03/21 19:57 98.2 78 18 132/73 (92) 96 01/03/21 17:24 135/66 01/03/21 16:00 97.2 74 20 135/66 (89) 97 I&O Intake and Output 01/03/21 01/04/21 19:00 07:00 Intake Total 480 ml 400 ml Output Total 600 ml Balance -120 ml 400 ml Intake Oral 480 ml 400 ml Output Urine Total 600 ml # Voids 4 4 # Bowel Movements 1 1 Dressing: saturated Cardiovascular: RSR Respiratory: decreased breath sounds Abdomen: soft, flat, distended, non-tender, present bowel sounds Extremities: edema, no tenderness, no cyanosis, pulses, other Plan Problems: (1) Scrotal swelling Assessment & Plan: Pt presented on admission with Multiple Pressure Injuries. Trunk,including Scrotum and Bilat lower extremities are grossly edematous. Shaft of Penis is grossly edematous and malformed. Unstageable Pressure Injury noted at base of shaft of penis(L)2.5cm x (W)1.7cm. Base of wound is 90% fibrinous,10% surrounding mehnaz borders. Edges are macerated. Surrounding shaft of penis and Scrotum are erythematous. Scattered Purpuric areas noted to lumbar, Sacrum, R and L Gluteal cheeks. Surrounding skin are erythematous. Multiple Linear partial thickness lacerations noted to medial /posterior aspects of both upper thighs. Pt informed staff that legs of his shorts became too tight because of swelling and were cutting into his skin. Scattered purpuric areas also noted to posterior Upper L and R thighs. Unstageable Pressure Injury noted to L Heel. Base of wound is 100% necrotic. Edges are adherent to base of wound. R heel is boggy with non-blanchable erythema. Tx.Plan:Cleanse wound base of penis with Saline. Apply Therahoney every 3 days and prn. Fecal pouch around base of Penis. Change every 3 days and prn.. Apply Moisture Barrier Paste to Scrotum. Buttocks, and Medial/Posterior Aspects of both upper thighs with each Incontinence care. Cover Sacrum with Optifoam drsg. Change every 3 days and prn. Apply Betadine to L Heel. Cover with Optifoam drsg. Change every 3 days and prn. Elevate Legs with Pillows. Reposition at least every 2hours or as tolerated.45-year-old male scrotal swelling identified a base right side penis lesion 2 cm x 1 cm stage III with 10% eschar. Wound washed Thera honey place dressings placed. Patient needs significant fluid reduction as he is retaining. Lasix ordered. Care plan discussed with nursing and PCP. Continue local wound care. GI for liver insufficiency. Liver: Cirrhosis with portal hypertension. Gallbladder and bile ducts: No calcified stones. No ductal dilation. Pancreas: Unremarkable. Spleen: Splenomegaly. Adrenals: Unremarkable. Kidneys and ureters: No renal calculi or obstructive changes. Stomach and bowel: Nonspecific thickening in the GI tract in light of the liver disease and third spacing. PELVIS: Appendix: No findings to suggest acute appendicitis. Bladder: Unremarkable. Reproductive: Large hydroceles ABDOMEN and PELVIS: Intraperitoneal space: Small amounts of fluid in the peritoneal cavity. Edema in the mesentery. Bones/joints: No acute fracture. Soft tissues: Anasarca. Vasculature: Collateral vessels. No abdominal aortic aneurysm. Lymph nodes: Inguinal nodes. IMPRESSION: Cirrhosis with portal hypertension. (2) Anasarca Assessment & Plan: Liver: Cirrhotic/nodular hepatic contour. Coarsened echotexture consistent with underlying parenchymal disease. No focal liver lesions identified. Right hepatic lobe diameter of 11.21 cm. Portal vein is patent with hepatopetal flow. Gallbladder: Gallbladder is contracted. No gallstones identified. Common bile duct: Unremarkable as visualized. No stones. No dilation. Pancreas: Visualized portions of the pancreatic head appear unremarkable. Pancreatic body and tail are obscured by bowel gas. Kidneys: Right kidney length of 10.7 cm. Left kidney length of 13.6 cm. Normal cortical thickness. No visible parenchymal lesions. No visible stones. No hydronephrosis. Spleen: Splenomegaly, with a diameter of 17.4 cm. Aorta: Visualized proximal portions appear unremarkable without evidence of aneurysm. Mid and distal abdominal aorta are obscured by overlying bowel gas. Inferior vena cava: Unremarkable. Free fluid: Mild volume perihepatic free fluid/ascites. IMPRESSION: 1. Cirrhotic/nodular hepatic contour. Coarsened echotexture consistent with underlying parenchymal disease. No focal liver lesions identified. 2. Splenomegaly, with a diameter of 17.4 cm. 3. Mild volume perihepatic free fluid/ascites. (3) Edema (4) Cirrhosis Assessment & Plan: etoh cessation Alexandru Cortez Jan 04, 2021 13:06
--- NOTE | 2021-01-04 13:26 | NUR ---
CASE MANAGEMENT:REVIEW 01/04/21 SI: SCROTAL SWELLING. ANASARCA. EDEMA 97.6 74 19 123/54 97% ON RA IS: IV ROCEPHIN Q24 IV LASIX QD TRENTAL PO TID THIAMINE PO QD ALDACTONE PO QD VIT C PO BID MVI PO BID : MED/SURG STATUS DCP: HOMELESS...AGREES TO LONGTERM
--- NOTE | 2021-01-04 15:22 | Diagnostic Imaging Report ---
Indication: Abnormal liver function tests. Anemia Technique: Garsia-scale and duplex images of the upper abdomen were obtained Comparison: 01/03/2021 Findings: There is a small to moderate amount of ascites fluid. Gallbladder demonstrates wall thickening, gallbladder wall thickening is 4 mm. No definite stones Sonographic Padilla's sign is negative. Common bile duct measures 5 mm in diameter. No intrahepatic biliary ductal dilatation. Liver demonstrates coarsened echogenicity and surface nodularity. No focal abnormality Portal vein and hepatic veins are patent. Recanalized periumbilical vein is demonstrated. Pancreas is obscured by bowel gas. Spleen is enlarged, measuring 15 cm long axis dimension. There are splenic hilar varices noted. Left kidney measures 11.1 cm in length. Right kidney measures 11.7 cm length. Both kidneys demonstrate normal echogenicity. There is no hydronephrosis. No focal abnormality . Abdominal aorta is partially obscured by bowel gas, visualized portions are non-aneurysmal . Impression: Evidence of hepatic cirrhosis, with coarsened hepatic echogenicity, and surface nodularity Evidence of portal hypertension, with recanalized periumbilical vein, splenic hilar varices, splenomegaly, ascites Negative for gallstones. Gallbladder wall thickening is probably related to the hemodynamic derangements from the hepatocellular disease. Nonvisualized pancreas and portions of the abdominal aorta
--- NOTE | 2021-01-04 15:37 | General Progress Note ---
Subjective ROS Limited/Unobtainable: No Allergies: Coded Allergies: No Known Allergies (Unverified , 12/21/20) Objective Last 24 Hour Vital Signs Date Time Temp Pulse Resp B/P (MAP) Pulse Ox O2 Delivery O2 Flow Rate FiO2 01/04/21 12:56 114/57 01/04/21 12:00 98.0 94 18 114/57 (76) 97 01/04/21 09:00 Room Air 01/04/21 08:44 123/54 01/04/21 08:00 97.6 74 19 123/54 (77) 97 01/04/21 04:03 98.0 16 134/68 (90) 95 01/03/21 20:11 Room Air 01/03/21 19:57 98.2 78 18 132/73 (92) 96 01/03/21 17:24 135/66 01/03/21 16:00 97.2 74 20 135/66 (89) 97 Intake and Output 01/03/21 01/04/21 19:00 07:00 Intake Total 480 ml 400 ml Output Total 600 ml Balance -120 ml 400 ml Intake Oral 480 ml 400 ml Output Urine Total 600 ml # Voids 4 4 # Bowel Movements 1 1 Height (Feet): 5 Height (Inches): 5.00 Weight (Pounds): 230 General Appearance: no apparent distress EENT: normal ENT inspection Neck: supple Cardiovascular: normal rate Respiratory/Chest: decreased breath sounds Abdomen: hypoactive bowel sounds Extremities: non-tender Assessment/Plan Assessment/Plan: Assessment/Plan Assessment/Plan: Assessment - EtOH cirrhosis - edema - anemia - thrombocytopenia - abnormal LFT Recommendations - Follow labs - diuresis -increase aldactone to 100 - d/c EtOH - Folic acid Anthony Grullon MD Jan 04, 2021 15:37
[2021-01-04 16:00] VITALS: BP 127/65
--- NOTE | 2021-01-04 18:13 | General Progress Note ---
Subjective Constitutional: Reports: weakness HEENT: Reports: no symptoms Cardiovascular: Reports: no symptoms Respiratory: Reports: shortness of breath Gastrointestinal/Abdominal: Reports: no symptoms Genitourinary: Reports: no symptoms Allergies: Coded Allergies: No Known Allergies (Unverified , 12/21/20) Objective Last 24 Hour Vital Signs Date Time Temp Pulse Resp B/P (MAP) Pulse Ox O2 Delivery O2 Flow Rate FiO2 01/04/21 17:02 129/71 01/04/21 16:00 97.7 84 18 127/65 (85) 99 01/04/21 12:56 114/57 01/04/21 12:00 98.0 94 18 114/57 (76) 97 01/04/21 09:00 Room Air 01/04/21 08:44 123/54 01/04/21 08:00 97.6 74 19 123/54 (77) 97 01/04/21 04:03 98.0 16 134/68 (90) 95 01/03/21 20:11 Room Air 01/03/21 19:57 98.2 78 18 132/73 (92) 96 Intake and Output 01/03/21 01/04/21 19:00 07:00 Intake Total 480 ml 400 ml Output Total 600 ml Balance -120 ml 400 ml Intake Oral 480 ml 400 ml Output Urine Total 600 ml # Voids 4 4 # Bowel Movements 1 1 Height (Feet): 5 Height (Inches): 5.00 Weight (Pounds): 230 EENT: PERRL/EOMI Neck: supple Cardiovascular: regular rhythm Respiratory/Chest: lungs clear Abdomen: non tender, soft Assessment/Plan Assessment/Plan: scortal swelling scortal wound chf htn comorbid obesity cont wound care iv abx lasix iv pt/ot eval dc plan to snf surgery Juni Montaño MD Jan 04, 2021 18:13
--- NOTE | 2021-01-04 19:09 | NUR ---
NURSE NOTES: given report to Daniel PORTER, pt in stable condition. - during my shift patient ambulate around the unit with used of a FWW - pt is able to tolerate diet with no n/v.
--- NOTE | 2021-01-04 19:20 | NUR ---
NURSE NOTES: Received report from Fuentes PORTER. Patient is awake, alert, and oriented x4. On room air, breathing is even and unlabored. No complains of pain or distress noted. IV right FA intact and patent with no bleeding noted. Bed low and locked. Call light within reach.
[2021-01-04 20:00] VITALS: BP 126/68
[2021-01-05] VITALS: BP 124/62
[2021-01-05 04:00] VITALS: BP 137/101
--- NOTE | 2021-01-05 06:35 | Hematology/Onc Progress Note ---
Assessment/Plan Assessment/Plan pancytopenia due to cirrhosis --> plt 60 --> wbc 3 coagulopathy also due to cirrhosis bleeding disorder scortal wound chf htn comorbid obesity cont wound care iv abx lasix iv pt/ot eval dc plan to snf dw surgery Diuresis as per cards Subjective Constitutional: Denies: no symptoms, chills, fever, malaise, weakness, other HEENT: Denies: no symptoms, eye pain, blurred vision, tearing, double vision, ear pain, ear discharge, nose pain, nose congestion, throat pain, throat swelling, mouth pain, mouth swelling, other Cardiovascular: Denies: no symptoms, chest pain, edema, irregular heart rate, lightheadedness, palpitations, syncope, other Genitourinary: Denies: no symptoms, burning, discharge, frequency, flank pain, hematuria, incontinence, pain, urgency, other Neurologic/Psychiatric: Denies: no symptoms, anxiety, depressed, emotional problems, headache, numbness, paresthesia, pre-existing deficit, seizure, tingling, tremors, weakness, other Endocrine: Denies: no symptoms, excessive sweating, flushing, intolerance to cold, intolerance to heat, increased hunger, increased thirst, increased urine, unexplained weight gain, unexplained weight loss, other Hematologic/Lymphatic: Denies: no symptoms, anemia, easy bleeding, easy bruising, adenopathy, other Allergies: Coded Allergies: No Known Allergies (Unverified , 12/21/20) Subjective 01/03 meds notd, no bleeding, continues to have fluid overload, scrotal swelling 01/04 imaging reviewed, wbc 3, hgb 8.7, otherwise imaging shows cirrhosis 01/05 imaging noted, labs for am are pending, no bleeding overnight Objective Objective Current Medications Medications (Trade) Dose Ordered Sig/Nelsy Route PRN Reason Start Time Stop Time Status Last Admin Dose Admin Ascorbic Acid (Vitamin C) 250 mg TWICE A DAY ORAL 12/29/20 18:00 01/28/21 17:59 01/04/21 17:04 Ceftriaxone Sodium 1 gm/ Dextrose 55 ml @ 110 mls/hr Q24H IVPB 12/29/20 11:00 01/05/21 10:59 01/04/21 11:00 Furosemide (Lasix) 20 mg DAILY IV 12/29/20 10:00 01/28/21 09:59 01/04/21 08:44 Multivitamins Therapeutic (Therapeutic Multivitamin) 1 ea BID ORAL 12/29/20 18:00 01/28/21 17:59 01/04/21 17:02 Pentoxifylline (TRENtal) 400 mg THREE TIMES A DAY ORAL 01/03/21 09:00 04/03/21 08:59 01/04/21 17:02 Spironolactone (Aldactone) 100 mg DAILY ORAL 01/05/21 09:00 02/02/21 08:59 Thiamine HCl (Vitamin B1) 100 mg DAILY ORAL 01/03/21 09:00 02/02/21 08:59 01/04/21 08:44 Last 24 Hour Vital Signs Date Time Temp Pulse Resp B/P (MAP) Pulse Ox O2 Delivery O2 Flow Rate FiO2 01/05/21 04:00 97.3 85 17 137/101 (113) 97 01/05/21 00:00 98.2 86 19 124/62 (82) 100 01/04/21 21:00 Room Air 01/04/21 20:00 97.7 80 19 126/68 (87) 97 01/04/21 17:02 129/71 01/04/21 16:00 97.7 84 18 127/65 (85) 99 01/04/21 12:56 114/57 01/04/21 12:00 98.0 94 18 114/57 (76) 97 01/04/21 09:00 Room Air 01/04/21 08:44 123/54 01/04/21 08:00 97.6 74 19 123/54 (77) 97 01/04/21 04:03 98.0 16 134/68 (90) 95 01/03/21 20:11 Room Air 01/03/21 19:57 98.2 78 18 132/73 (92) 96 01/03/21 17:24 135/66 01/03/21 16:00 97.2 74 20 135/66 (89) 97 01/03/21 12:48 143/70 01/03/21 12:00 97.6 78 20 137/70 (92) 98 01/03/21 09:56 143/70 01/03/21 09:00 Room Air 01/03/21 08:00 98.1 80 22 143/70 (94) 97 Intake and Output 01/04/21 01/05/21 19:00 07:00 Intake Total 720 ml 200 ml Output Total 1100 ml 850 ml Balance -380 ml -650 ml Intake Oral 720 ml 200 ml Output Urine Total 1100 ml 850 ml # Voids 3 # Bowel Movements 1 2 Labs Test 01/03/21 06:15 White Blood Count 3.5 K/UL (4.8-10.8) Red Blood Count 2.43 M/UL (4.70-6.10) Hemoglobin 8.7 G/DL (14.2-18.0) Hematocrit 27.4 % (42.0-52.0) Mean Corpuscular Volume 113 FL (80-99) Mean Corpuscular Hemoglobin 35.9 PG (27.0-31.0) Mean Corpuscular Hemoglobin Concent 31.8 G/DL (32.0-36.0) Red Cell Distribution Width 16.5 % (11.6-14.8) Platelet Count 60 K/UL (150-450) Mean Platelet Volume 9.0 FL (6.5-10.1) Neutrophils (%) (Auto) % (45.0-75.0) Lymphocytes (%) (Auto) % (20.0-45.0) Monocytes (%) (Auto) % (1.0-10.0) Eosinophils (%) (Auto) % (0.0-3.0) Basophils (%) (Auto) % (0.0-2.0) Erythrocyte Sedimentation Rate 118 MM/HR (0-15) Prothrombin Time 19.0 SEC (9.30-11.50) Prothromb Time International Ratio 1.8 (0.9-1.1) Activated Partial Thromboplast Time 38 SEC (23-33) Sodium Level 132 MMOL/L (136-145) Potassium Level 4.2 MMOL/L (3.5-5.1) Chloride Level 102 MMOL/L (98-107) Carbon Dioxide Level 27 MMOL/L (21-32) Anion Gap 3 mmol/L (5-15) Blood Urea Nitrogen 13 mg/dL (7-18) Creatinine 0.7 MG/DL (0.55-1.30) Estimat Glomerular Filtration Rate > 60 mL/min (>60) Glucose Level 72 MG/DL (74-106) Lactic Acid Level 0.70 mmol/L (0.4-2.0) Calcium Level 7.4 MG/DL (8.5-10.1) Total Bilirubin 3.8 MG/DL (0.2-1.0) Direct Bilirubin 2.6 MG/DL (0.0-0.3) Aspartate Amino Transf (AST/SGOT) 96 U/L (15-37) Alanine Aminotransferase (ALT/SGPT) 41 U/L (12-78) Alkaline Phosphatase 193 U/L (46-116) Ammonia 40 umol/L (11-32) C-Reactive Protein, Quantitative 4.0 mg/dL (0.00-0.90) Total Protein 6.2 G/DL (6.4-8.2) Albumin 1.2 G/DL (3.4-5.0) Globulin 5.0 g/dL Albumin/Globulin Ratio 0.2 (1.0-2.7) Amylase Level 80 U/L (25-115) Lipase 447 U/L (73-393) HIV (1&2) Antibody Rapid Negative (NEGATIVE) Height (Feet): 5 Height (Inches): 5.00 Weight (Pounds): 230 Objective General Appearance: no apparent distress Neck: supple Cardiovascular: regular rhythm Respiratory/Chest: lungs clear Abdomen: non tender, soft Jl Pavon MD Jan 05, 2021 06:35
--- NOTE | 2021-01-05 06:56 | NUR ---
NURSE HAND-OFF: Important Events on Shift: Wound care Patient Status: Stable Diet: Low sodium Pending Orders: [] Pending Results/Labs:[] Pending MD notification:[] Latest Vital Signs: Temperature 97.3 , Pulse 85 , B/P 137 /101 , Respiratory Rate 17 , O2 SAT 97 , Room Air, O2 Flow Rate . Vital Sign Comment: VS stable Latest Quarles Fall Score: 45 Fall Risk: High Risk Safety Measures: Call light Within Reach, Bed Alarm Zone 1, Side Rails Side Rails x2, Bed position Low and Locked. Fall Precautions: Yellow Socks Yellow Gown Door Sign Patient Fall Education Report will be given to Sheila PORTER.
[2021-01-05 07:14] LABS: HEMATOCRIT 28.4 % (42.0-52.0); HEMOGLOBIN 9.3 G/DL (14.2-18.0); MEAN CORPUSCULAR VOLUME 112 FL (80-99); PLATELET COUNT 67 K/UL (150-450); RED BLOOD COUNT 2.53 M/UL (4.70-6.10); RED CELL DISTRIBUTION WIDTH 16.5 % (11.6-14.8); WHITE BLOOD COUNT 3.9 K/UL (4.8-10.8)
--- NOTE | 2021-01-05 07:34 | General Progress Note ---
Subjective ROS Limited/Unobtainable: Yes Allergies: Coded Allergies: No Known Allergies (Unverified , 12/21/20) Objective Last 24 Hour Vital Signs Date Time Temp Pulse Resp B/P (MAP) Pulse Ox O2 Delivery O2 Flow Rate FiO2 01/05/21 04:00 97.3 85 17 137/101 (113) 97 01/05/21 00:00 98.2 86 19 124/62 (82) 100 01/04/21 21:00 Room Air 01/04/21 20:00 97.7 80 19 126/68 (87) 97 01/04/21 17:02 129/71 01/04/21 16:00 97.7 84 18 127/65 (85) 99 01/04/21 12:56 114/57 01/04/21 12:00 98.0 94 18 114/57 (76) 97 01/04/21 09:00 Room Air 01/04/21 08:44 123/54 01/04/21 08:00 97.6 74 19 123/54 (77) 97 Intake and Output 01/04/21 01/05/21 19:00 07:00 Intake Total 720 ml 200 ml Output Total 1100 ml 850 ml Balance -380 ml -650 ml Intake Oral 720 ml 200 ml Output Urine Total 1100 ml 850 ml # Voids 3 # Bowel Movements 1 2 Laboratory Tests 01/05/21 06:27: White Blood Count 3.9L, Red Blood Count 2.53L, Hemoglobin 9.3L, Hematocrit 28.4L , Mean Corpuscular Volume 112H, Mean Corpuscular Hemoglobin 36.6H, Mean Corpuscular Hemoglobin Concent 32.7, Red Cell Distribution Width 16.5H, Platelet Count 67L, Mean Platelet Volume 10.8H, Neutrophils (%) (Auto) , Lymphocytes (%) (Auto) , Monocytes (%) (Auto) , Eosinophils (%) (Auto) , Basophils (%) (Auto) , Neutrophils % (Manual) [Pending], Lymphocytes % (Manual) [Pending], Platelet Estimate [Pending], Platelet Morphology [Pending], Sodium Level [Pending], Potassium Level [Pending], Chloride Level [Pending], Carbon Dioxide Level [Pending], Blood Urea Nitrogen [Pending], Creatinine [Pending], Estimat Glomerular Filtration Rate [Pending], Glucose Level [Pending], Calcium Level [Pending], Total Bilirubin [Pending], Aspartate Amino Transf (AST/SGOT) [Pending], Alanine Aminotransferase (ALT/SGPT) [Pending], Alkaline Phosphatase [Pending], Ammonia [Pending], Total Protein [Pending], Albumin [Pending], Globulin [Pending] Height (Feet): 5 Height (Inches): 5.00 Weight (Pounds): 230 General Appearance: no apparent distress EENT: normal ENT inspection Neck: supple Cardiovascular: normal rate Respiratory/Chest: decreased breath sounds Abdomen: normal bowel sounds, non tender, soft Extremities: non-tender Assessment/Plan Assessment/Plan: Assessment/Plan Assessment/Plan: Assessment - EtOH cirrhosis - edema - anemia - thrombocytopenia - abnormal LFT Recommendations - Follow labs - diuresis -aldactone to 100 - d/c EtOH - Folic acid -add lactulose -repeat LABS Anthony Grullon MD Jan 05, 2021 07:34
--- NOTE | 2021-01-05 07:45 | NUR ---
NURSE NOTES: Received report from Massimo PORTER. Patient awake, alert, and oriented x4. Breathing is even and unlabored on RA. No acute distress noted. Denied any pain at this time. IV right FA intact and patent. Bed low and locked. Call light within reach. Will continue to monitor.
[2021-01-05 08:00] VITALS: BP 127/59
[2021-01-05 08:11] LABS: ALANINE AMINOTRANSFERASE 47 U/L (12-78); ALBUMIN 1.3 G/DL (3.4-5.0); ALBUMIN/GLOBULIN RATIO 0.2 (1.0-2.7); ALKALINE PHOSPHATASE 176 U/L (46-116); ANION GAP 5 mmol/L (5-15); ASPARTATE AMINO TRANSFERASE 113 U/L (15-37); BLOOD UREA NITROGEN 13 mg/dL (7-18); CALCIUM 7.4 MG/DL (8.5-10.1); CARBON DIOXIDE 27 MMOL/L (21-32); CHLORIDE 101 MMOL/L (98-107); CREATININE 0.6 MG/DL (0.55-1.30); POTASSIUM 3.8 MMOL/L (3.5-5.1); SODIUM 133 MMOL/L (136-145)
[2021-01-05 08:13] LABS: BILIRUBIN,DIRECT 2.6 MG/DL (0.0-0.3)
[2021-01-05] MEDS: Spironolactone 50mg tab ORAL SCH (09:03)
[2021-01-05] MEDS: Lactulose 20gm/30ml UDC ORAL SCH ×2 (09:03→18:17)
[2021-01-05] MEDS: Ascorbic Acid 500mg tab ORAL SCH ×2 (09:03→18:17)
[2021-01-05] MEDS: Thiamine 100mg tab ORAL SCH (09:03)
[2021-01-05] MEDS: Multivitamin w/Minerals tab ORAL SCH ×2 (09:04→18:17)
[2021-01-05 12:00] VITALS: BP 118/63
[2021-01-05 16:00] VITALS: BP 121/59
--- NOTE | 2021-01-05 16:33 | NUR ---
PAPERBOARD BOXES ESTIMATOR NOTE PT confirmed prelim dc plan w/ this [facility]. PT will dc own resource to preferred location via public transportation. SW explained negative ramification of unlicensed facilities. Resources and maps are provided as per request. Appropriate clothing was provided. Pt is willing to walk-in. [phone] and [facility] [phone], the calls were not answered.
--- NOTE | 2021-01-05 16:47 | NUR ---
NURSE NOTES: Received call from case management associate director and she insisted to discharge pt today. pt is homeless. Charge nurse spoke with pt regarding discharge. Pt stated that he does not have place to go. Charge nurse tried to call longterm for placement according to case management social worker's note. Spoke to Robert from [facility] and was told that there no spot for now. Another longterm not answering phone. Pt also stated that he can not walk due to his swollen legs and scrotum. Notified Dr. Montaño and received order to hold discharge today.
--- NOTE | 2021-01-05 16:54 | General Progress Note ---
Subjective Allergies: Coded Allergies: No Known Allergies (Unverified , 12/21/20) Subjective doing ok Objective Last 24 Hour Vital Signs Date Time Temp Pulse Resp B/P (MAP) Pulse Ox O2 Delivery O2 Flow Rate FiO2 01/05/21 13:05 118/63 01/05/21 12:00 97.9 85 17 118/63 (81) 97 01/05/21 09:04 127/59 01/05/21 09:00 Room Air 01/05/21 08:00 97.8 87 17 127/59 (81) 97 01/05/21 04:00 97.3 85 17 137/101 (113) 97 01/05/21 00:00 98.2 86 19 124/62 (82) 100 01/04/21 21:00 Room Air 01/04/21 20:00 97.7 80 19 126/68 (87) 97 01/04/21 17:02 129/71 Intake and Output 01/04/21 01/05/21 19:00 07:00 Intake Total 720 ml 200 ml Output Total 1100 ml 850 ml Balance -380 ml -650 ml Intake Oral 720 ml 200 ml Output Urine Total 1100 ml 850 ml # Voids 3 # Bowel Movements 1 2 Laboratory Tests 01/05/21 06:27: White Blood Count 3.9L, Red Blood Count 2.53L, Hemoglobin 9.3L, Hematocrit 28.4L , Mean Corpuscular Volume 112H, Mean Corpuscular Hemoglobin 36.6H, Mean Corpuscular Hemoglobin Concent 32.7, Red Cell Distribution Width 16.5H, Platelet Count 67L, Mean Platelet Volume 10.8H, Neutrophils (%) (Auto) , Lymphocytes (%) (Auto) , Monocytes (%) (Auto) , Eosinophils (%) (Auto) , Basophils (%) (Auto) , Differential Total Cells Counted 100, Neutrophils % (Manual) 56, Lymphocytes % (Manual) 34, Monocytes % (Manual) 8, Eosinophils % (Manual) 1, Basophils % (Manual) 1, Band Neutrophils 0, Platelet Estimate DecreasedL, Platelet Morphology Normal, Anisocytosis 1+, Macrocytosis 1+, Sodium Level 133L, Potassium Level 3.8, Chloride Level 101, Carbon Dioxide Level 27, Anion Gap 5, Blood Urea Nitrogen 13, Creatinine 0.6, Estimat Glomerular Filtration Rate > 60, Glucose Level 73L, Calcium Level 7.4L, Total Bilirubin 4.0H, Direct Bilirubin 2.6H, Aspartate Amino Transf (AST/SGOT) 113H, Alanine Aminotransferase (ALT/SGPT) 47, Alkaline Phosphatase 176H, Ammonia 14, Total Protein 6.6, Albumin 1.3L, Globulin 5.3, Albumin/Globulin Ratio 0.2L Height (Feet): 5 Height (Inches): 5.00 Weight (Pounds): 230 General Appearance: alert EENT: PERRL/EOMI Neck: supple Cardiovascular: regular rhythm Respiratory/Chest: lungs clear Abdomen: non tender, soft Assessment/Plan Assessment/Plan: scortal swelling scortal wound chf htn comorbid obesity cont wound care iv abx lasix iv pt/ot Juni Fernandez MD Jan 05, 2021 16:54
--- NOTE | 2021-01-05 17:11 | Surgery Progress Note ---
Surgery Progress Note Subjective Symptoms: improved, tolerating diet, voiding well, passing flatus, BM, pain decreased Objective Last 24 Hour Vital Signs Date Time Temp Pulse Resp B/P (MAP) Pulse Ox O2 Delivery O2 Flow Rate FiO2 01/05/21 16:00 97.9 79 17 121/59 (79) 96 01/05/21 13:05 118/63 01/05/21 12:00 97.9 85 17 118/63 (81) 97 01/05/21 09:04 127/59 01/05/21 09:00 Room Air 01/05/21 08:00 97.8 87 17 127/59 (81) 97 01/05/21 04:00 97.3 85 17 137/101 (113) 97 01/05/21 00:00 98.2 86 19 124/62 (82) 100 01/04/21 21:00 Room Air 01/04/21 20:00 97.7 80 19 126/68 (87) 97 I&O Intake and Output 01/04/21 01/05/21 19:00 07:00 Intake Total 720 ml 200 ml Output Total 1100 ml 850 ml Balance -380 ml -650 ml Intake Oral 720 ml 200 ml Output Urine Total 1100 ml 850 ml # Voids 3 # Bowel Movements 1 2 Dressing: saturated Wound: clean Cardiovascular: RSR Respiratory: clear Abdomen: soft, distended, non-distended Extremities: edema, no tenderness, no cyanosis Laboratory Tests Test 01/05/21 06:27 White Blood Count 3.9 K/UL (4.8-10.8) L Red Blood Count 2.53 M/UL (4.70-6.10) L Hemoglobin 9.3 G/DL (14.2-18.0) L Hematocrit 28.4 % (42.0-52.0) L Mean Corpuscular Volume 112 FL (80-99) H Mean Corpuscular Hemoglobin 36.6 PG (27.0-31.0) H Mean Corpuscular Hemoglobin Concent 32.7 G/DL (32.0-36.0) Red Cell Distribution Width 16.5 % (11.6-14.8) H Platelet Count 67 K/UL (150-450) L Mean Platelet Volume 10.8 FL (6.5-10.1) H Neutrophils (%) (Auto) % (45.0-75.0) Lymphocytes (%) (Auto) % (20.0-45.0) Monocytes (%) (Auto) % (1.0-10.0) Eosinophils (%) (Auto) % (0.0-3.0) Basophils (%) (Auto) % (0.0-2.0) Differential Total Cells Counted 100 Neutrophils % (Manual) 56 % (45-75) Lymphocytes % (Manual) 34 % (20-45) Monocytes % (Manual) 8 % (1-10) Eosinophils % (Manual) 1 % (0-3) Basophils % (Manual) 1 % (0-2) Band Neutrophils 0 % (0-8) Platelet Estimate Decreased L Platelet Morphology Normal Anisocytosis 1+ Macrocytosis 1+ Sodium Level 133 MMOL/L (136-145) L Potassium Level 3.8 MMOL/L (3.5-5.1) Chloride Level 101 MMOL/L (98-107) Carbon Dioxide Level 27 MMOL/L (21-32) Anion Gap 5 mmol/L (5-15) Blood Urea Nitrogen 13 mg/dL (7-18) Creatinine 0.6 MG/DL (0.55-1.30) Estimat Glomerular Filtration Rate > 60 mL/min (>60) Glucose Level 73 MG/DL (74-106) L Calcium Level 7.4 MG/DL (8.5-10.1) L Total Bilirubin 4.0 MG/DL (0.2-1.0) H Direct Bilirubin 2.6 MG/DL (0.0-0.3) H Aspartate Amino Transf (AST/SGOT) 113 U/L (15-37) H Alanine Aminotransferase (ALT/SGPT) 47 U/L (12-78) Alkaline Phosphatase 176 U/L (46-116) H Ammonia 14 umol/L (11-32) Total Protein 6.6 G/DL (6.4-8.2) Albumin 1.3 G/DL (3.4-5.0) L Globulin 5.3 g/dL Albumin/Globulin Ratio 0.2 (1.0-2.7) L Plan Problems: (1) Scrotal swelling Assessment & Plan: Pt presented on admission with Multiple Pressure Injuries. Trunk,including Scrotum and Bilat lower extremities are grossly edematous. Shaft of Penis is grossly edematous and malformed. Unstageable Pressure Injury noted at base of shaft of penis(L)2.5cm x (W)1.7cm. Base of wound is 90% fibrinous,10% surrounding mehnaz borders. Edges are macerated. Surrounding shaft of penis and Scrotum are erythematous. Scattered Purpuric areas noted to lumbar, Sacrum, R and L Gluteal cheeks. Surrounding skin are erythematous. Multiple Linear partial thickness lacerations noted to medial /posterior aspects of both upper thighs. Pt informed staff that legs of his shorts became too tight because of swelling and were cutting into his skin. Scattered purpuric areas also noted to posterior Upper L and R thighs. Unstageable Pressure Injury noted to L Heel. Base of wound is 100% necrotic. Edges are adherent to base of wound. R heel is boggy with non-blanchable erythema. Tx.Plan:Cleanse wound base of penis with Saline. Apply Therahoney every 3 days and prn. Fecal pouch around base of Penis. Change every 3 days and prn.. Apply Moisture Barrier Paste to Scrotum. Buttocks, and Medial/Posterior Aspects of both upper thighs with each Incontinence care. Cover Sacrum with Optifoam drsg. Change every 3 days and prn. Apply Betadine to L Heel. Cover with Optifoam drsg. Change every 3 days and prn. Elevate Legs with Pillows. Reposition at least every 2hours or as tolerated.45-year-old male scrotal swelling identified a base right side penis lesion 2 cm x 1 cm stage III with 10% eschar. Wound washed Thera honey place dressings placed. Patient needs significant fluid reduction as he is retaining. Lasix ordered. Care plan discussed with nursing and PCP. Continue local wound care. GI for liver insufficiency. Liver: Cirrhosis with portal hypertension. Gallbladder and bile ducts: No calcified stones. No ductal dilation. Pancreas: Unremarkable. Spleen: Splenomegaly. Adrenals: Unremarkable. Kidneys and ureters: No renal calculi or obstructive changes. Stomach and bowel: Nonspecific thickening in the GI tract in light of the liver disease and third spacing. PELVIS: Appendix: No findings to suggest acute appendicitis. Bladder: Unremarkable. Reproductive: Large hydroceles ABDOMEN and PELVIS: Intraperitoneal space: Small amounts of fluid in the peritoneal cavity. Edema in the mesentery. Bones/joints: No acute fracture. Soft tissues: Anasarca. Vasculature: Collateral vessels. No abdominal aortic aneurysm. Lymph nodes: Inguinal nodes. IMPRESSION: Cirrhosis with portal hypertension. (2) Anasarca Assessment & Plan: Liver: Cirrhotic/nodular hepatic contour. Coarsened echotexture consistent with underlying parenchymal disease. No focal liver lesions identified. Right hepatic lobe diameter of 11.21 cm. Portal vein is patent with hepatopetal flow. Gallbladder: Gallbladder is contracted. No gallstones identified. Common bile duct: Unremarkable as visualized. No stones. No dilation. Pancreas: Visualized portions of the pancreatic head appear unremarkable. Pancreatic body and tail are obscured by bowel gas. Kidneys: Right kidney length of 10.7 cm. Left kidney length of 13.6 cm. Normal cortical thickness. No visible parenchymal lesions. No visible stones. No hydronephrosis. Spleen: Splenomegaly, with a diameter of 17.4 cm. Aorta: Visualized proximal portions appear unremarkable without evidence of aneurysm. Mid and distal abdominal aorta are obscured by overlying bowel gas. Inferior vena cava: Unremarkable. Free fluid: Mild volume perihepatic free fluid/ascites. IMPRESSION: 1. Cirrhotic/nodular hepatic contour. Coarsened echotexture consistent with underlying parenchymal disease. No focal liver lesions identified. 2. Splenomegaly, with a diameter of 17.4 cm. 3. Mild volume perihepatic free fluid/ascites. (3) Edema (4) Cirrhosis Assessment & Plan: etoh cessation Alexandru Cortez Jan 05, 2021 17:11
--- NOTE | 2021-01-05 19:08 | NUR ---
NURSE HAND-OFF: Important Events on Shift:[No spot for custodial. hold discharge.] Patient Status: [stable] Diet: [low sodium] Pending Orders: [] Pending Results/Labs:[] Pending MD notification:[] Latest Vital Signs: Temperature 97.9 , Pulse 79 , B/P 121 /59 , Respiratory Rate 17 , O2 SAT 96 , Room Air, O2 Flow Rate . Vital Sign Comment: [stable] Latest Quarles Fall Score: 45 Fall Risk: High Risk Safety Measures: Call light Within Reach, Bed Alarm Zone 1, Side Rails Side Rails x2, Bed position Low and Locked. Fall Precautions: Yellow Socks Yellow Gown Door Sign Patient Fall Education Report given to [GERMAN Tripp].
--- NOTE | 2021-01-05 19:50 | NUR ---
NURSE NOTES: Received patient awake in bed, AOx4, no s/s of acute distress. Urinal at bedside containing usha colored liquid, disposed of. Patient refusing SCDs at this time. Bed low and locked, bed alarm on.
[2021-01-05 20:00] VITALS: BP 129/65
[2021-01-05] MEDS ORDERED: Tubing IV Secondary IV ONE (21:42)
[2021-01-06 04:00] VITALS: BP 114/68
--- NOTE | 2021-01-06 05:38 | NUR ---
NURSE NOTES: Unable to weigh patient for daily weights as patient is on bed with no bedscale. Patient unable and unwilling to switch beds at this time. Will endorse to AM shift.
[2021-01-06 06:07] LABS: HEMOGLOBIN 9.2 G/DL (14.2-18.0); MEAN CORPUSCULAR VOLUME 114 FL (80-99); PLATELET COUNT 57 K/UL (150-450); RED BLOOD COUNT 2.54 M/UL (4.70-6.10); RED CELL DISTRIBUTION WIDTH 16.4 % (11.6-14.8); WHITE BLOOD COUNT 3.9 K/UL (4.8-10.8)
[2021-01-06 06:21] LABS: AMMONIA 30 umol/L (11-32)
[2021-01-06 06:27] LABS: ALANINE AMINOTRANSFERASE 47 U/L (12-78); ALBUMIN 1.2 G/DL (3.4-5.0); ALBUMIN/GLOBULIN RATIO 0.2 (1.0-2.7); ALKALINE PHOSPHATASE 163 U/L (46-116); ANION GAP 3 mmol/L (5-15); ASPARTATE AMINO TRANSFERASE 115 U/L (15-37); BILIRUBIN,TOTAL 4.2 MG/DL (0.2-1.0); BLOOD UREA NITROGEN 10 mg/dL (7-18); CALCIUM 7.3 MG/DL (8.5-10.1); CARBON DIOXIDE 27 MMOL/L (21-32); CHLORIDE 103 MMOL/L (98-107); CREATININE 0.7 MG/DL (0.55-1.30); POTASSIUM 3.9 MMOL/L (3.5-5.1); SODIUM 133 MMOL/L (136-145)
[2021-01-06 06:30] LABS: BILIRUBIN,DIRECT 2.7 MG/DL (0.0-0.3)
--- NOTE | 2021-01-06 06:59 | Hematology/Onc Progress Note ---
Assessment/Plan Assessment/Plan pancytopenia due to cirrhosis --> plt 60-->57 --> wbc 3-->3 --> hgb 9 coagulopathy also due to cirrhosis bleeding disorder scortal wound chf htn comorbid obesity cont wound care iv abx lasix iv pt/ot eval dc plan to snf dw surgery Diuresis as per cards Subjective HEENT: Denies: no symptoms, eye pain, blurred vision, tearing, double vision, ear pain, ear discharge, nose pain, nose congestion, throat pain, throat swelling, mouth pain, mouth swelling, other Cardiovascular: Denies: no symptoms, chest pain, edema, irregular heart rate, lightheadedness, palpitations, syncope, other Respiratory: Denies: no symptoms, cough, shortness of breath, SOB with excertion, SOB at rest, sputum, wheezing, other Gastrointestinal/Abdominal: Denies: no symptoms, abdomen distended, abdominal pain, black stools, tarry stools, blood in stool, constipated, diarrhea, difficulty swallowing, nausea, poor appetite, poor fluid intake, rectal bleeding, vomiting, other Genitourinary: Denies: no symptoms, burning, discharge, frequency, flank pain, hematuria, incontinence, pain, urgency, other Neurologic/Psychiatric: Denies: no symptoms, anxiety, depressed, emotional problems, headache, numbness, paresthesia, pre-existing deficit, seizure, tingling, tremors, weakness, other Endocrine: Denies: no symptoms, excessive sweating, flushing, intolerance to cold, intolerance to heat, increased hunger, increased thirst, increased urine, unexplained weight gain, unexplained weight loss, other Allergies: Coded Allergies: No Known Allergies (Unverified , 12/21/20) Subjective 01/03 meds notd, no bleeding, continues to have fluid overload, scrotal swelling 01/04 imaging reviewed, wbc 3, hgb 8.7, otherwise imaging shows cirrhosis 01/05 imaging noted, labs for am are pending, no bleeding overnight Objective Objective Current Medications Medications (Trade) Dose Ordered Sig/Nelsy Route PRN Reason Start Time Stop Time Status Last Admin Dose Admin Ascorbic Acid (Vitamin C) 250 mg TWICE A DAY ORAL 12/29/20 18:00 01/28/21 17:59 01/05/21 18:17 Furosemide (Lasix) 20 mg DAILY IV 12/29/20 10:00 01/28/21 09:59 01/05/21 09:04 Lactulose (Cephulac) 20 gm BID ORAL 01/05/21 09:00 02/04/21 08:59 01/05/21 18:17 Multivitamins Therapeutic (Therapeutic Multivitamin) 1 ea BID ORAL 12/29/20 18:00 01/28/21 17:59 01/05/21 18:17 Pentoxifylline (TRENtal) 400 mg THREE TIMES A DAY ORAL 01/03/21 09:00 04/03/21 08:59 01/05/21 18:17 Spironolactone (Aldactone) 100 mg DAILY ORAL 01/05/21 09:00 02/02/21 08:59 01/05/21 09:03 Thiamine HCl (Vitamin B1) 100 mg DAILY ORAL 01/03/21 09:00 02/02/21 08:59 01/05/21 09:03 Last 24 Hour Vital Signs Date Time Temp Pulse Resp B/P (MAP) Pulse Ox O2 Delivery O2 Flow Rate FiO2 01/06/21 04:00 97.2 83 16 114/68 (83) 96 01/05/21 20:26 Room Air 01/05/21 20:00 98.4 77 16 129/65 (86) 96 01/05/21 18:17 121/59 01/05/21 16:00 97.9 79 17 121/59 (79) 96 01/05/21 13:05 118/63 01/05/21 12:00 97.9 85 17 118/63 (81) 97 01/05/21 09:04 127/59 01/05/21 09:00 Room Air 01/05/21 08:00 97.8 87 17 127/59 (81) 97 01/05/21 04:00 97.3 85 17 137/101 (113) 97 01/05/21 00:00 98.2 86 19 124/62 (82) 100 01/04/21 21:00 Room Air 01/04/21 20:00 97.7 80 19 126/68 (87) 97 01/04/21 17:02 129/71 01/04/21 16:00 97.7 84 18 127/65 (85) 99 01/04/21 12:56 114/57 01/04/21 12:00 98.0 94 18 114/57 (76) 97 01/04/21 09:00 Room Air 01/04/21 08:44 123/54 01/04/21 08:00 97.6 74 19 123/54 (77) 97 Intake and Output 01/05/21 01/06/21 19:00 07:00 Output Total 600 ml Balance -600 ml Output Urine Total 600 ml # Voids 2 Labs Test 01/05/21 06:27 01/06/21 05:20 White Blood Count 3.9 K/UL (4.8-10.8) 3.9 K/UL (4.8-10.8) Red Blood Count 2.53 M/UL (4.70-6.10) 2.54 M/UL (4.70-6.10) Hemoglobin 9.3 G/DL (14.2-18.0) 9.2 G/DL (14.2-18.0) Hematocrit 28.4 % (42.0-52.0) 29.0 % (42.0-52.0) Mean Corpuscular Volume 112 FL (80-99) 114 FL (80-99) Mean Corpuscular Hemoglobin 36.6 PG (27.0-31.0) 36.0 PG (27.0-31.0) Mean Corpuscular Hemoglobin Concent 32.7 G/DL (32.0-36.0) 31.6 G/DL (32.0-36.0) Red Cell Distribution Width 16.5 % (11.6-14.8) 16.4 % (11.6-14.8) Platelet Count 67 K/UL (150-450) 57 K/UL (150-450) Mean Platelet Volume 10.8 FL (6.5-10.1) 8.2 FL (6.5-10.1) Neutrophils (%) (Auto) % (45.0-75.0) % (45.0-75.0) Lymphocytes (%) (Auto) % (20.0-45.0) % (20.0-45.0) Monocytes (%) (Auto) % (1.0-10.0) % (1.0-10.0) Eosinophils (%) (Auto) % (0.0-3.0) % (0.0-3.0) Basophils (%) (Auto) % (0.0-2.0) % (0.0-2.0) Differential Total Cells Counted 100 Neutrophils % (Manual) 56 % (45-75) Lymphocytes % (Manual) 34 % (20-45) Monocytes % (Manual) 8 % (1-10) Eosinophils % (Manual) 1 % (0-3) Basophils % (Manual) 1 % (0-2) Band Neutrophils 0 % (0-8) Platelet Estimate Decreased Platelet Morphology Normal Anisocytosis 1+ Macrocytosis 1+ Sodium Level 133 MMOL/L (136-145) 133 MMOL/L (136-145) Potassium Level 3.8 MMOL/L (3.5-5.1) 3.9 MMOL/L (3.5-5.1) Chloride Level 101 MMOL/L (98-107) 103 MMOL/L (98-107) Carbon Dioxide Level 27 MMOL/L (21-32) 27 MMOL/L (21-32) Anion Gap 5 mmol/L (5-15) 3 mmol/L (5-15) Blood Urea Nitrogen 13 mg/dL (7-18) 10 mg/dL (7-18) Creatinine 0.6 MG/DL (0.55-1.30) 0.7 MG/DL (0.55-1.30) Estimat Glomerular Filtration Rate > 60 mL/min (>60) > 60 mL/min (>60) Glucose Level 73 MG/DL (74-106) 86 MG/DL (74-106) Calcium Level 7.4 MG/DL (8.5-10.1) 7.3 MG/DL (8.5-10.1) Total Bilirubin 4.0 MG/DL (0.2-1.0) 4.2 MG/DL (0.2-1.0) Direct Bilirubin 2.6 MG/DL (0.0-0.3) 2.7 MG/DL (0.0-0.3) Aspartate Amino Transf (AST/SGOT) 113 U/L (15-37) 115 U/L (15-37) Alanine Aminotransferase (ALT/SGPT) 47 U/L (12-78) 47 U/L (12-78) Alkaline Phosphatase 176 U/L (46-116) 163 U/L (46-116) Ammonia 14 umol/L (11-32) 30 umol/L (11-32) Total Protein 6.6 G/DL (6.4-8.2) 6.6 G/DL (6.4-8.2) Albumin 1.3 G/DL (3.4-5.0) 1.2 G/DL (3.4-5.0) Globulin 5.3 g/dL 5.4 g/dL Albumin/Globulin Ratio 0.2 (1.0-2.7) 0.2 (1.0-2.7) Height (Feet): 5 Height (Inches): 5.00 Weight (Pounds): 230 Objective General Appearance: no apparent distress Neck: supple Cardiovascular: regular rhythm Respiratory/Chest: lungs clear Abdomen: non tender, soft Jl Pavon MD Jan 06, 2021 06:59
--- NOTE | 2021-01-06 07:29 | NUR ---
NURSE NOTES: report given to GERMAN Sosa
--- NOTE | 2021-01-06 07:33 | NUR ---
NURSE NOTES: Received report from GERMAN Tripp. Patient alert, and oriented x4. Breathing is even and unlabored on RA. No acute distress noted. Denied any pain at this time. IV right FA intact and patent. Bed low and locked. Call light within reach. Will continue to monitor.
--- NOTE | 2021-01-06 07:52 | NUR ---
CASE MANAGEMENT:REVIEW 01/06/21 SI: SCROTAL SWELLING. ANASARCA. EDEMA 97.2 83 16 114/68 96% ON RA WBC-3.9 H/H-9.2/29.0 PLT-57 CA-7.3 TBILI/DBILI+4.2/2.7 IS: LACTULOSE PO BID IV LASIX QD TRENTAL PO TID THIAMINE PO QD ALDACTONE PO QD VIT C PO BID MVI PO BID : MED/SURG STATUS DCP: HOMELESS...AGREED TO USP PLAN: AMBULATES 125 FT PER PT NOTES
[2021-01-06 08:00] VITALS: BP 124/60
--- NOTE | 2021-01-06 08:13 | General Progress Note ---
Subjective ROS Limited/Unobtainable: Yes Allergies: Coded Allergies: No Known Allergies (Unverified , 12/21/20) Objective Last 24 Hour Vital Signs Date Time Temp Pulse Resp B/P (MAP) Pulse Ox O2 Delivery O2 Flow Rate FiO2 01/06/21 04:00 97.2 83 16 114/68 (83) 96 01/05/21 20:26 Room Air 01/05/21 20:00 98.4 77 16 129/65 (86) 96 01/05/21 18:17 121/59 01/05/21 16:00 97.9 79 17 121/59 (79) 96 01/05/21 13:05 118/63 01/05/21 12:00 97.9 85 17 118/63 (81) 97 01/05/21 09:04 127/59 01/05/21 09:00 Room Air Intake and Output 01/05/21 01/06/21 19:00 07:00 Output Total 600 ml Balance -600 ml Output Urine Total 600 ml # Voids 2 Laboratory Tests 01/06/21 05:20: White Blood Count 3.9L, Red Blood Count 2.54L, Hemoglobin 9.2L, Hematocrit 29.0L , Mean Corpuscular Volume 114H, Mean Corpuscular Hemoglobin 36.0H, Mean Corpuscular Hemoglobin Concent 31.6L, Red Cell Distribution Width 16.4H, Platelet Count 57L, Mean Platelet Volume 8.2, Neutrophils (%) (Auto) , Lymphocytes (%) (Auto) , Monocytes (%) (Auto) , Eosinophils (%) (Auto) , Basophils (%) (Auto) , Neutrophils % (Manual) [Pending], Lymphocytes % (Manual) [Pending], Platelet Estimate [Pending], Platelet Morphology [Pending], Sodium Level 133L, Potassium Level 3.9, Chloride Level 103, Carbon Dioxide Level 27, Anion Gap 3L, Blood Urea Nitrogen 10, Creatinine 0.7, Estimat Glomerular Filtra tion Rate > 60, Glucose Level 86, Calcium Level 7.3L, Total Bilirubin 4.2H, Direct Bilirubin 2.7H, Aspartate Amino Transf (AST/SGOT) 115H, Alanine Aminotransferase (ALT/SGPT) 47, Alkaline Phosphatase 163H, Ammonia 30, Total Protein 6.6, Albumin 1.2L, Globulin 5.4, Albumin/Globulin Ratio 0.2L Height (Feet): 5 Height (Inches): 5.00 Weight (Pounds): 230 General Appearance: no apparent distress EENT: PERRL/EOMI Neck: supple Cardiovascular: normal rate Respiratory/Chest: decreased breath sounds Abdomen: hypoactive bowel sounds Extremities: non-tender Assessment/Plan Assessment/Plan: Assessment/Plan Assessment/Plan: Assessment - EtOH cirrhosis - edema - anemia - thrombocytopenia - abnormal LFT Recommendations - Follow labs - diuresis -aldactone 100 - d/c EtOH - Folic acid -lactulose -repeat LABS Anthony Grullon MD Jan 06, 2021 08:13
[2021-01-06] MEDS: Multivitamin w/Minerals tab ORAL SCH ×2 (08:27→18:10)
[2021-01-06] MEDS: Thiamine 100mg tab ORAL SCH (08:29)
[2021-01-06] MEDS: Ascorbic Acid 500mg tab ORAL SCH ×2 (08:30→18:10)
[2021-01-06] MEDS: Lactulose 20gm/30ml UDC ORAL SCH ×2 (08:30→18:09)
[2021-01-06] MEDS: Spironolactone 50mg tab ORAL SCH (08:30)
--- NOTE | 2021-01-06 09:33 | General Progress Note ---
Subjective Allergies: Coded Allergies: No Known Allergies (Unverified , 12/21/20) Subjective doing ok Objective Last 24 Hour Vital Signs Date Time Temp Pulse Resp B/P (MAP) Pulse Ox O2 Delivery O2 Flow Rate FiO2 01/06/21 08:29 124/60 01/06/21 08:00 98.9 90 16 124/60 (81) 98 01/06/21 04:00 97.2 83 16 114/68 (83) 96 01/05/21 20:26 Room Air 01/05/21 20:00 98.4 77 16 129/65 (86) 96 01/05/21 18:17 121/59 01/05/21 16:00 97.9 79 17 121/59 (79) 96 01/05/21 13:05 118/63 01/05/21 12:00 97.9 85 17 118/63 (81) 97 Intake and Output 01/05/21 01/06/21 19:00 07:00 Output Total 600 ml Balance -600 ml Output Urine Total 600 ml # Voids 2 Laboratory Tests 01/06/21 05:20: White Blood Count 3.9L, Red Blood Count 2.54L, Hemoglobin 9.2L, Hematocrit 29.0L , Mean Corpuscular Volume 114H, Mean Corpuscular Hemoglobin 36.0H, Mean Corpuscular Hemoglobin Concent 31.6L, Red Cell Distribution Width 16.4H, Platelet Count 57L, Mean Platelet Volume 8.2, Neutrophils (%) (Auto) , Lymphocytes (%) (Auto) , Monocytes (%) (Auto) , Eosinophils (%) (Auto) , Basophils (%) (Auto) , Differential Total Cells Counted 100, Neutrophils % (Manual) 59, Lymphocytes % (Manual) 30, Monocytes % (Manual) 9, Eosinophils % (Manual) 2, Basophils % (Manual) 0, Band Neutrophils 0, Platelet Estimate DecreasedL, Platelet Morphology Normal, Hypochromasia 1+, Anisocytosis 1+, Macrocytosis 1+, Sodium Level 133L, Potassium Level 3.9, Chloride Level 103, Carbon Dioxide Level 27, Anion Gap 3L, Blood Urea Nitrogen 10, Creatinine 0.7, Estimat Glomerular Filtration Rate > 60, Glucose Level 86, Calcium Level 7.3L, Total Bilirubin 4.2H, Direct Bilirubin 2.7H, Aspartate Amino Transf (AST/SGOT) 115H, Alanine Aminotransferase (ALT/SGPT) 47, Alkaline Phosphatase 163H, Ammonia 30, Total Protein 6.6, Albumin 1.2L, Globulin 5.4, Albumin/Globulin Ratio 0.2L Height (Feet): 5 Height (Inches): 5.00 Weight (Pounds): 230 General Appearance: alert EENT: PERRL/EOMI Neck: supple Cardiovascular: regular rhythm Respiratory/Chest: normal breath sounds Abdomen: non tender, soft Assessment/Plan Assessment/Plan: scortal swelling scortal wound chf htn comorbid obesity cont wound care iv abx lasix iv pt/ot Juni Fernandez MD Jan 06, 2021 09:33
[2021-01-06 11:55] VITALS: BP 124/59
--- NOTE | 2021-01-06 12:40 | Surgery Progress Note ---
Surgery Progress Note Subjective Symptoms: improved, tolerating diet, voiding well, passing flatus, BM Objective Last 24 Hour Vital Signs Date Time Temp Pulse Resp B/P (MAP) Pulse Ox O2 Delivery O2 Flow Rate FiO2 01/06/21 12:01 124/59 01/06/21 11:55 98.3 85 16 124/59 (80) 98 01/06/21 08:29 124/60 01/06/21 08:00 98.9 90 16 124/60 (81) 98 01/06/21 04:00 97.2 83 16 114/68 (83) 96 01/05/21 20:26 Room Air 01/05/21 20:00 98.4 77 16 129/65 (86) 96 01/05/21 18:17 121/59 01/05/21 16:00 97.9 79 17 121/59 (79) 96 01/05/21 13:05 118/63 I&O Intake and Output 01/05/21 01/06/21 19:00 07:00 Output Total 600 ml Balance -600 ml Output Urine Total 600 ml # Voids 2 Dressing: saturated Wound: clean Cardiovascular: RSR Respiratory: clear Abdomen: soft, non-tender, present bowel sounds, non-distended Extremities: edema, no tenderness, no cyanosis, other Laboratory Tests Test 01/06/21 05:20 White Blood Count 3.9 K/UL (4.8-10.8) L Red Blood Count 2.54 M/UL (4.70-6.10) L Hemoglobin 9.2 G/DL (14.2-18.0) L Hematocrit 29.0 % (42.0-52.0) L Mean Corpuscular Volume 114 FL (80-99) H Mean Corpuscular Hemoglobin 36.0 PG (27.0-31.0) H Mean Corpuscular Hemoglobin Concent 31.6 G/DL (32.0-36.0) L Red Cell Distribution Width 16.4 % (11.6-14.8) H Platelet Count 57 K/UL (150-450) L Mean Platelet Volume 8.2 FL (6.5-10.1) Neutrophils (%) (Auto) % (45.0-75.0) Lymphocytes (%) (Auto) % (20.0-45.0) Monocytes (%) (Auto) % (1.0-10.0) Eosinophils (%) (Auto) % (0.0-3.0) Basophils (%) (Auto) % (0.0-2.0) Differential Total Cells Counted 100 Neutrophils % (Manual) 59 % (45-75) Lymphocytes % (Manual) 30 % (20-45) Monocytes % (Manual) 9 % (1-10) Eosinophils % (Manual) 2 % (0-3) Basophils % (Manual) 0 % (0-2) Band Neutrophils 0 % (0-8) Platelet Estimate Decreased L Platelet Morphology Normal Hypochromasia 1+ Anisocytosis 1+ Macrocytosis 1+ Sodium Level 133 MMOL/L (136-145) L Potassium Level 3.9 MMOL/L (3.5-5.1) Chloride Level 103 MMOL/L (98-107) Carbon Dioxide Level 27 MMOL/L (21-32) Anion Gap 3 mmol/L (5-15) L Blood Urea Nitrogen 10 mg/dL (7-18) Creatinine 0.7 MG/DL (0.55-1.30) Estimat Glomerular Filtration Rate > 60 mL/min (>60) Glucose Level 86 MG/DL (74-106) Calcium Level 7.3 MG/DL (8.5-10.1) L Total Bilirubin 4.2 MG/DL (0.2-1.0) H Direct Bilirubin 2.7 MG/DL (0.0-0.3) H Aspartate Amino Transf (AST/SGOT) 115 U/L (15-37) H Alanine Aminotransferase (ALT/SGPT) 47 U/L (12-78) Alkaline Phosphatase 163 U/L (46-116) H Ammonia 30 umol/L (11-32) Total Protein 6.6 G/DL (6.4-8.2) Albumin 1.2 G/DL (3.4-5.0) L Globulin 5.4 g/dL Albumin/Globulin Ratio 0.2 (1.0-2.7) L Plan Problems: (1) Scrotal swelling Assessment & Plan: Pt presented on admission with Multiple Pressure Injuries. Trunk,including Scrotum and Bilat lower extremities are grossly edematous. Shaft of Penis is grossly edematous and malformed. Unstageable Pressure Injury noted at base of shaft of penis(L)2.5cm x (W)1.7cm. Base of wound is 90% fibrinous,10% surrounding mehnaz borders. Edges are macerated. Surrounding shaft of penis and Scrotum are erythematous. Scattered Purpuric areas noted to lumbar, Sacrum, R and L Gluteal cheeks. Surrounding skin are erythematous. Multiple Linear partial thickness lacerations noted to medial /posterior aspects of both upper thighs. Pt informed staff that legs of his shorts became too tight because of swelling and were cutting into his skin. Scattered purpuric areas also noted to posterior Upper L and R thighs. Unstageable Pressure Injury noted to L Heel. Base of wound is 100% necrotic. Edges are adherent to base of wound. R heel is boggy with non-blanchable erythema. Tx.Plan:Cleanse wound base of penis with Saline. Apply Therahoney every 3 days and prn. Fecal pouch around base of Penis. Change every 3 days and prn.. Apply Moisture Barrier Paste to Scrotum. Buttocks, and Medial/Posterior Aspects of both upper thighs with each Incontinence care. Cover Sacrum with Optifoam drsg. Change every 3 days and prn. Apply Betadine to L Heel. Cover with Optifoam drsg. Change every 3 days and prn. Elevate Legs with Pillows. Reposition at least every 2hours or as tolerated.45-year-old male scrotal swelling identified a base right side penis lesion 2 cm x 1 cm stage III with 10% eschar. Wound washed Thera honey place dressings placed. Patient needs significant fluid reduction as he is retaining. Lasix ordered. Care plan discussed with nursing and PCP. Continue local wound care. GI for liver insufficiency. Liver: Cirrhosis with portal hypertension. Gallbladder and bile ducts: No calcified stones. No ductal dilation. Pancreas: Unremarkable. Spleen: Splenomegaly. Adrenals: Unremarkable. Kidneys and ureters: No renal calculi or obstructive changes. Stomach and bowel: Nonspecific thickening in the GI tract in light of the liver disease and third spacing. PELVIS: Appendix: No findings to suggest acute appendicitis. Bladder: Unremarkable. Reproductive: Large hydroceles ABDOMEN and PELVIS: Intraperitoneal space: Small amounts of fluid in the peritoneal cavity. Edema in the mesentery. Bones/joints: No acute fracture. Soft tissues: Anasarca. Vasculature: Collateral vessels. No abdominal aortic aneurysm. Lymph nodes: Inguinal nodes. IMPRESSION: Cirrhosis with portal hypertension. (2) Anasarca Assessment & Plan: Liver: Cirrhotic/nodular hepatic contour. Coarsened echotexture consistent with underlying parenchymal disease. No focal liver lesions identified. Right hepatic lobe diameter of 11.21 cm. Portal vein is patent with hepatopetal flow. Gallbladder: Gallbladder is contracted. No gallstones identified. Common bile duct: Unremarkable as visualized. No stones. No dilation. Pancreas: Visualized portions of the pancreatic head appear unremarkable. Pancreatic body and tail are obscured by bowel gas. Kidneys: Right kidney length of 10.7 cm. Left kidney length of 13.6 cm. Normal cortical thickness. No visible parenchymal lesions. No visible stones. No hydronephrosis. Spleen: Splenomegaly, with a diameter of 17.4 cm. Aorta: Visualized proximal portions appear unremarkable without evidence of aneurysm. Mid and distal abdominal aorta are obscured by overlying bowel gas. Inferior vena cava: Unremarkable. Free fluid: Mild volume perihepatic free fluid/ascites. IMPRESSION: 1. Cirrhotic/nodular hepatic contour. Coarsened echotexture consistent with underlying parenchymal disease. No focal liver lesions identified. 2. Splenomegaly, with a diameter of 17.4 cm. 3. Mild volume perihepatic free fluid/ascites. (3) Edema (4) Cirrhosis Assessment & Plan: etoh cessation Alexandru Cortez Jan 06, 2021 12:40
[2021-01-06] MEDS: Propranolol 10mg tab ORAL SCH ×2 (14:19→22:19)
[2021-01-06 16:00] VITALS: BP 118/65
--- NOTE | 2021-01-06 19:37 | NUR ---
NURSE HAND-OFF: Important Events on Shift:] Patient Status: [stable] Diet: [low sodium] Pending Orders: [] Pending Results/Labs:[] Pending MD notification:[] Latest Vital Signs: Temperature 98.7 , Pulse 71 , B/P 118 /65 , Respiratory Rate 20 , O2 SAT 98 , Room Air, O2 Flow Rate . Vital Sign Comment: [stable] Latest Quarles Fall Score: 45 Fall Risk: High Risk Safety Measures: Call light Within Reach, Bed Alarm Zone 1, Side Rails Side Rails x2, Bed position Low and Locked. Fall Precautions: Yellow Socks Yellow Gown Door Sign Patient Fall Education Report given to [Shen,RN].
[2021-01-06 20:00] VITALS: BP 108/65
--- NOTE | 2021-01-06 21:47 | NUR ---
NURSE NOTES: Pt is in bed, awake. No acute distress noted. Vitas stable. Pt has severe scrotal edema; elevated on a roll of towel. Pt has a discharge ordered, awaiting placement. Fall precautions in place. Pt will be monitored.
[2021-01-07] VITALS (7 sets, daily range): BP systolic 103–125; BP diastolic 47–66
--- NOTE | 2021-01-07 03:49 | NUR ---
NURSE NOTES: Pt is in bed, asleep. No acute distress noted.
[2021-01-07] MEDS: Propranolol 10mg tab ORAL SCH ×3 (05:11→21:49)
--- NOTE | 2021-01-07 06:50 | Hematology/Onc Progress Note ---
Assessment/Plan Assessment/Plan pancytopenia due to cirrhosis --> plt 60-->57 --> wbc 3-->3 --> hgb 9 coagulopathy also due to cirrhosis bleeding disorder scortal wound chf htn comorbid obesity cont wound care iv abx lasix iv pt/ot eval dc plan to snf dw surgery Diuresis as per cards Subjective Constitutional: Denies: no symptoms, chills, fever, malaise, weakness, other HEENT: Denies: no symptoms, eye pain, blurred vision, tearing, double vision, ear pain, ear discharge, nose pain, nose congestion, throat pain, throat swelling, mouth pain, mouth swelling, other Cardiovascular: Denies: no symptoms, chest pain, edema, irregular heart rate, lightheadedness, palpitations, syncope, other Respiratory: Denies: no symptoms, cough, shortness of breath, SOB with excertion, SOB at rest, sputum, wheezing, other Genitourinary: Denies: no symptoms, burning, discharge, frequency, flank pain, hematuria, incontinence, pain, urgency, other Neurologic/Psychiatric: Denies: no symptoms, anxiety, depressed, emotional problems, headache, numbness, paresthesia, pre-existing deficit, seizure, t ingling, tremors, weakness, other Endocrine: Denies: no symptoms, excessive sweating, flushing, intolerance to cold, intolerance to heat, increased hunger, increased thirst, increased urine, unexplained weight gain, unexplained weight loss, other Allergies: Coded Allergies: No Known Allergies (Unverified , 12/21/20) Subjective 01/03 meds notd, no bleeding, continues to have fluid overload, scrotal swelling 01/04 imaging reviewed, wbc 3, hgb 8.7, otherwise imaging shows cirrhosis 01/05 imaging noted, labs for am are pending, no bleeding overnight 01/06 awake, alert, nio bleeding or chills, labs are noted Objective Objective Current Medications Medications (Trade) Dose Ordered Sig/Nelsy Route PRN Reason Start Time Stop Time Status Last Admin Dose Admin Ascorbic Acid (Vitamin C) 250 mg TWICE A DAY ORAL 12/29/20 18:00 01/28/21 17:59 01/06/21 18:10 Furosemide (Lasix) 20 mg DAILY IV 12/29/20 10:00 01/28/21 09:59 01/06/21 08:30 Lactulose (Cephulac) 20 gm BID ORAL 01/05/21 09:00 02/04/21 08:59 01/06/21 18:09 Multivitamins Therapeutic (Therapeutic Multivitamin) 1 ea BID ORAL 12/29/20 18:00 01/28/21 17:59 01/06/21 18:10 Pentoxifylline (TRENtal) 400 mg THREE TIMES A DAY ORAL 01/03/21 09:00 04/03/21 08:59 01/06/21 18:10 Propranolol HCl (Inderal) 10 mg Q8HR ORAL 01/06/21 14:00 02/05/21 13:59 01/07/21 05:11 Spironolactone (Aldactone) 100 mg DAILY ORAL 01/05/21 09:00 02/02/21 08:59 01/06/21 08:30 Thiamine HCl (Vitamin B1) 100 mg DAILY ORAL 01/03/21 09:00 02/02/21 08:59 01/06/21 08:29 Last 24 Hour Vital Signs Date Time Temp Pulse Resp B/P (MAP) Pulse Ox O2 Delivery O2 Flow Rate FiO2 01/07/21 05:11 98 114/66 01/07/21 04:00 98.8 98 16 114/66 (82) 95 01/07/21 00:00 97.6 60 16 125/55 (78) 99 01/06/21 22:19 75 112/67 01/06/21 21:00 Room Air 01/06/21 20:00 97.3 62 18 108/65 (79) 100 01/06/21 18:10 118/65 01/06/21 16:00 98.7 71 20 118/65 (82) 98 01/06/21 14:19 85 124/59 01/06/21 12:01 124/59 01/06/21 11:55 98.3 85 16 124/59 (80) 98 01/06/21 09:00 Room Air 01/06/21 08:29 124/60 01/06/21 08:00 98.9 90 16 124/60 (81) 98 01/06/21 04:00 97.2 83 16 114/68 (83) 96 01/05/21 20:26 Room Air 01/05/21 20:00 98.4 77 16 129/65 (86) 96 01/05/21 18:17 121/59 01/05/21 16:00 97.9 79 17 121/59 (79) 96 01/05/21 13:05 118/63 01/05/21 12:00 97.9 85 17 118/63 (81) 97 01/05/21 09:04 127/59 01/05/21 09:00 Room Air 01/05/21 08:00 97.8 87 17 127/59 (81) 97 Intake and Output 01/06/21 01/07/21 19:00 07:00 Intake Total 630 ml Output Total 1050 ml 800 ml Balance -420 ml -800 ml Intake Oral 630 ml Output Urine Total 1050 ml 800 ml # Voids 2 # Bowel Movements 2 2 Labs Test 01/05/21 06:27 01/06/21 05:20 01/07/21 06:00 White Blood Count 3.9 K/UL (4.8-10.8) 3.9 K/UL (4.8-10.8) Red Blood Count 2.53 M/UL (4.70-6.10) 2.54 M/UL (4.70-6.10) Hemoglobin 9.3 G/DL (14.2-18.0) 9.2 G/DL (14.2-18.0) Hematocrit 28.4 % (42.0-52.0) 29.0 % (42.0-52.0) Mean Corpuscular Volume 112 FL (80-99) 114 FL (80-99) Mean Corpuscular Hemoglobin 36.6 PG (27.0-31.0) 36.0 PG (27.0-31.0) Mean Corpuscular Hemoglobin Concent 32.7 G/DL (32.0-36.0) 31.6 G/DL (32.0-36.0) Red Cell Distribution Width 16.5 % (11.6-14.8) 16.4 % (11.6-14.8) Platelet Count 67 K/UL (150-450) 57 K/UL (150-450) Mean Platelet Volume 10.8 FL (6.5-10.1) 8.2 FL (6.5-10.1) Neutrophils (%) (Auto) % (45.0-75.0) % (45.0-75.0) Lymphocytes (%) (Auto) % (20.0-45.0) % (20.0-45.0) Monocytes (%) (Auto) % (1.0-10.0) % (1.0-10.0) Eosinophils (%) (Auto) % (0.0-3.0) % (0.0-3.0) Basophils (%) (Auto) % (0.0-2.0) % (0.0-2.0) Differential Total Cells Counted 100 100 Neutrophils % (Manual) 56 % (45-75) 59 % (45-75) Lymphocytes % (Manual) 34 % (20-45) 30 % (20-45) Monocytes % (Manual) 8 % (1-10) 9 % (1-10) Eosinophils % (Manual) 1 % (0-3) 2 % (0-3) Basophils % (Manual) 1 % (0-2) 0 % (0-2) Band Neutrophils 0 % (0-8) 0 % (0-8) Platelet Estimate Decreased Decreased Platelet Morphology Normal Normal Anisocytosis 1+ 1+ Macrocytosis 1+ 1+ Sodium Level 133 MMOL/L (136-145) 133 MMOL/L (136-145) Potassium Level 3.8 MMOL/L (3.5-5.1) 3.9 MMOL/L (3.5-5.1) Chloride Level 101 MMOL/L (98-107) 103 MMOL/L (98-107) Carbon Dioxide Level 27 MMOL/L (21-32) 27 MMOL/L (21-32) Anion Gap 5 mmol/L (5-15) 3 mmol/L (5-15) Blood Urea Nitrogen 13 mg/dL (7-18) 10 mg/dL (7-18) Creatinine 0.6 MG/DL (0.55-1.30) 0.7 MG/DL (0.55-1.30) Estimat Glomerular Filtration Rate > 60 mL/min (>60) > 60 mL/min (>60) Glucose Level 73 MG/DL (74-106) 86 MG/DL (74-106) Calcium Level 7.4 MG/DL (8.5-10.1) 7.3 MG/DL (8.5-10.1) Total Bilirubin 4.0 MG/DL (0.2-1.0) 4.2 MG/DL (0.2-1.0) Direct Bilirubin 2.6 MG/DL (0.0-0.3) 2.7 MG/DL (0.0-0.3) Aspartate Amino Transf (AST/SGOT) 113 U/L (15-37) 115 U/L (15-37) Alanine Aminotransferase (ALT/SGPT) 47 U/L (12-78) 47 U/L (12-78) Alkaline Phosphatase 176 U/L (46-116) 163 U/L (46-116) Ammonia 14 umol/L (11-32) 30 umol/L (11-32) Total Protein 6.6 G/DL (6.4-8.2) 6.6 G/DL (6.4-8.2) Albumin 1.3 G/DL (3.4-5.0) 1.2 G/DL (3.4-5.0) Globulin 5.3 g/dL 5.4 g/dL Albumin/Globulin Ratio 0.2 (1.0-2.7) 0.2 (1.0-2.7) Hypochromasia 1+ Height (Feet): 5 Height (Inches): 5.00 Weight (Pounds): 230 Objective General Appearance: no apparent distress Neck: supple Cardiovascular: regular rhythm Respiratory/Chest: lungs clear Abdomen: non tender, soft Jl Pavon MD Jan 07, 2021 06:49
[2021-01-07 06:55] LABS: HEMATOCRIT 28.8 % (42.0-52.0); HEMOGLOBIN 9.2 G/DL (14.2-18.0); MEAN CORPUSCULAR VOLUME 114 FL (80-99); PLATELET COUNT 74 K/UL (150-450); RED BLOOD COUNT 2.53 M/UL (4.70-6.10); RED CELL DISTRIBUTION WIDTH 16.6 % (11.6-14.8); WHITE BLOOD COUNT 4.6 K/UL (4.8-10.8)
[2021-01-07 07:00] LABS: BASOPHILS % (AUTO) 1.9 % (0.0-2.0); EOSINOPHILS % (AUTO) 4.3 % (0.0-3.0); LYMPHOCYTES % (AUTO) 28.3 % (20.0-45.0); MONOCYTES % (AUTO) 10.1 % (1.0-10.0); NEUTROPHILS % (AUTO) 55.5 % (45.0-75.0)
[2021-01-07 07:10] LABS: ALANINE AMINOTRANSFERASE 46 U/L (12-78); ALBUMIN 1.1 G/DL (3.4-5.0); ALBUMIN/GLOBULIN RATIO 0.2 (1.0-2.7); ALKALINE PHOSPHATASE 129 U/L (46-116); ANION GAP 1 mmol/L (5-15); ASPARTATE AMINO TRANSFERASE 109 U/L (15-37); BILIRUBIN,TOTAL 4.6 MG/DL (0.2-1.0); BLOOD UREA NITROGEN 11 mg/dL (7-18); CALCIUM 7.5 MG/DL (8.5-10.1); CARBON DIOXIDE 28 MMOL/L (21-32); CHLORIDE 104 MMOL/L (98-107); CREATININE 0.7 MG/DL (0.55-1.30); POTASSIUM 4.4 MMOL/L (3.5-5.1); SODIUM 133 MMOL/L (136-145)
[2021-01-07 07:18] LABS: BILIRUBIN,DIRECT 2.7 MG/DL (0.0-0.3)
--- NOTE | 2021-01-07 07:25 | NUR ---
HAND OFF NOTE: Report given to GERMAN Rdz. Informed that pt is fall risk.
--- NOTE | 2021-01-07 08:01 | NUR ---
NURSE NOTES: Patient awake and alert and o
--- NOTE | 2021-01-07 08:02 | NUR ---
NURSE NOTES: Patient i8s awake and alert and oriented,respirations unlabored.Saline lock in the the right arm intact noted some bruising around IV will re reassess Patient ate breakfast.Call light within reach.
[2021-01-07] MEDS: Lactulose 20gm/30ml UDC ORAL SCH ×2 (09:35→18:51)
[2021-01-07] MEDS: Multivitamin w/Minerals tab ORAL SCH ×2 (09:35→18:51)
[2021-01-07] MEDS: Thiamine 100mg tab ORAL SCH (09:36)
[2021-01-07] MEDS: Ascorbic Acid 500mg tab ORAL SCH ×2 (09:36→18:51)
[2021-01-07] MEDS: Spironolactone 50mg tab ORAL SCH (09:36)
--- NOTE | 2021-01-07 10:52 | Surgery Progress Note ---
Surgery Progress Note Subjective Additional Comments no acute events feels well edema slowly improved but not much Objective Last 24 Hour Vital Signs Date Time Temp Pulse Resp B/P (MAP) Pulse Ox O2 Delivery O2 Flow Rate FiO2 01/07/21 09:34 122/54 01/07/21 05:11 98 114/66 01/07/21 04:00 98.8 98 16 114/66 (82) 95 01/07/21 00:00 97.6 60 16 125/55 (78) 99 01/06/21 22:19 75 112/67 01/06/21 21:00 Room Air 01/06/21 20:00 97.3 62 18 108/65 (79) 100 01/06/21 18:10 118/65 01/06/21 16:00 98.7 71 20 118/65 (82) 98 01/06/21 14:19 85 124/59 01/06/21 12:01 124/59 01/06/21 11:55 98.3 85 16 124/59 (80) 98 I&O Intake and Output 01/06/21 01/07/21 19:00 07:00 Intake Total 630 ml Output Total 1050 ml 800 ml Balance -420 ml -800 ml Intake Oral 630 ml Output Urine Total 1050 ml 800 ml # Voids 2 # Bowel Movements 2 2 Dressing: saturated Cardiovascular: RSR Respiratory: decreased breath sounds Abdomen: soft, distended, non-tender, present bowel sounds Extremities: edema, no cyanosis Laboratory Tests Test 01/07/21 06:00 White Blood Count 4.6 K/UL (4.8-10.8) L Red Blood Count 2.53 M/UL (4.70-6.10) L Hemoglobin 9.2 G/DL (14.2-18.0) L Hematocrit 28.8 % (42.0-52.0) L Mean Corpuscular Volume 114 FL (80-99) H Mean Corpuscular Hemoglobin 36.2 PG (27.0-31.0) H Mean Corpuscular Hemoglobin Concent 31.9 G/DL (32.0-36.0) L Red Cell Distribution Width 16.6 % (11.6-14.8) H Platelet Count 74 K/UL (150-450) L Mean Platelet Volume 7.9 FL (6.5-10.1) Neutrophils (%) (Auto) 55.5 % (45.0-75.0) Lymphocytes (%) (Auto) 28.3 % (20.0-45.0) Monocytes (%) (Auto) 10.1 % (1.0-10.0) H Eosinophils (%) (Auto) 4.3 % (0.0-3.0) H Basophils (%) (Auto) 1.9 % (0.0-2.0) Sodium Level 133 MMOL/L (136-145) L Potassium Level 4.4 MMOL/L (3.5-5.1) Chloride Level 104 MMOL/L (98-107) Carbon Dioxide Level 28 MMOL/L (21-32) Anion Gap 1 mmol/L (5-15) L Blood Urea Nitrogen 11 mg/dL (7-18) Creatinine 0.7 MG/DL (0.55-1.30) Estimat Glomerular Filtration Rate > 60 mL/min (>60) Glucose Level 93 MG/DL (74-106) Calcium Level 7.5 MG/DL (8.5-10.1) L Total Bilirubin 4.6 MG/DL (0.2-1.0) H Direct Bilirubin 2.7 MG/DL (0.0-0.3) H Aspartate Amino Transf (AST/SGOT) 109 U/L (15-37) H Alanine Aminotransferase (ALT/SGPT) 46 U/L (12-78) Alkaline Phosphatase 129 U/L (46-116) H Total Protein 6.1 G/DL (6.4-8.2) L Albumin 1.1 G/DL (3.4-5.0) L Globulin 5.0 g/dL Albumin/Globulin Ratio 0.2 (1.0-2.7) L Plan Problems: (1) Scrotal swelling Assessment & Plan: Pt presented on admission with Multiple Pressure Injuries. Trunk,including Scrotum and Bilat lower extremities are grossly edematous. Shaft of Penis is grossly edematous and malformed. Unstageable Pressure Injury noted at base of shaft of penis(L)2.5cm x (W)1.7cm. Base of wound is 90% fibrinous,10% surrounding mehnaz borders. Edges are macerated. Surrounding shaft of penis and Scrotum are erythematous. Scattered Purpuric areas noted to lumbar, Sacrum, R and L Gluteal cheeks. Surrounding skin are erythematous. Multiple Linear partial thickness lacerations noted to medial /posterior aspects of both upper thighs. Pt informed staff that legs of his shorts became too tight because of swelling and were cutting into his skin. Scattered purpuric areas als o noted to posterior Upper L and R thighs. Unstageable Pressure Injury noted to L Heel. Base of wound is 100% necrotic. Edges are adherent to base of wound. R heel is boggy with non-blanchable erythema. Tx.Plan:Cleanse wound base of penis with Saline. Apply Therahoney every 3 days and prn. Fecal pouch around base of Penis. Change every 3 days and prn.. Apply Moisture Barrier Paste to Scrotum. Buttocks, and Medial/Posterior Aspects of both upper thighs with each Incontinence care. Cover Sacrum with Optifoam drsg. Change every 3 days and prn. Apply Betadine to L Heel. Cover with Optifoam drsg. Change every 3 days and prn. Elevate Legs with Pillows. Reposition at least every 2hours or as tolerated.45-year-old male scrotal swelling identified a base right side penis lesion 2 cm x 1 cm stage III with 10% eschar. Wound washed Thera honey place dressings placed. Patient needs significant fluid reduction as he is retaining. Lasix ordered. Care plan discussed with nursing and PCP. Continue local wound care. GI for liver insufficiency. Liver: Cirrhosis with portal hypertension. Gallbladder and bile ducts: No calcified stones. No ductal dilation. Pancreas: Unremarkable. Spleen: Splenomegaly. Adrenals: Unremarkable. Kidneys and ureters: No renal calculi or obstructive changes. Stomach and bowel: Nonspecific thickening in the GI tract in light of the liver disease and third spacing. PELVIS: Appendix: No findings to suggest acute appendicitis. Bladder: Unremarkable. Reproductive: Large hydroceles ABDOMEN and PELVIS: Intraperitoneal space: Small amounts of fluid in the peritoneal cavity. Edema in the mesentery. Bones/joints: No acute fracture. Soft tissues: Anasarca. Vasculature: Collateral vessels. No abdominal aortic aneurysm. Lymph nodes: Inguinal nodes. IMPRESSION: Cirrhosis with portal hypertension. (2) Anasarca Assessment & Plan: Liver: Cirrhotic/nodular hepatic contour. Coarsened echotexture consistent with underlying parenchymal disease. No focal liver lesions identified. Right hepatic lobe diameter of 11.21 cm. Portal vein is patent with hepatopetal flow. Gallbladder: Gallbladder is contracted. No gallstones identified. Common bile duct: Unremarkable as visualized. No stones. No dilation. Pancreas: Visualized portions of the pancreatic head appear unremarkable. Pancreatic body and tail are obscured by bowel gas. Kidneys: Right kidney length of 10.7 cm. Left kidney length of 13.6 cm. Normal cortical thickness. No visible parenchymal lesions. No visible stones. No hydronephrosis. Spleen: Splenomegaly, with a diameter of 17.4 cm. Aorta: Visualized proximal portions appear unremarkable without evidence of aneurysm. Mid and distal abdominal aorta are obscured by overlying bowel gas. Inferior vena cava: Unremarkable. Free fluid: Mild volume perihepatic free fluid/ascites. IMPRESSION: 1. Cirrhotic/nodular hepatic contour. Coarsened echotexture consistent with underlying parenchymal disease. No focal liver lesions identified. 2. Splenomegaly, with a diameter of 17.4 cm. 3. Mild volume perihepatic free fluid/ascites. (3) Edema (4) Cirrhosis Assessment & Plan: etoh cessation Alexandru Cortez Jan 07, 2021 10:52
--- NOTE | 2021-01-07 12:21 | General Progress Note ---
Subjective ROS Limited/Unobtainable: No Allergies: Coded Allergies: No Known Allergies (Unverified , 12/21/20) Objective Last 24 Hour Vital Signs Date Time Temp Pulse Resp B/P (MAP) Pulse Ox O2 Delivery O2 Flow Rate FiO2 01/07/21 09:34 122/54 01/07/21 09:30 61 122/54 (76) 01/07/21 09:00 Room Air 01/07/21 08:00 98.2 67 20 103/47 (65) 99 01/07/21 05:11 98 114/66 01/07/21 04:00 98.8 98 16 114/66 (82) 95 01/07/21 00:00 97.6 60 16 125/55 (78) 99 01/06/21 22:19 75 112/67 01/06/21 21:00 Room Air 01/06/21 20:00 97.3 62 18 108/65 (79) 100 01/06/21 18:10 118/65 01/06/21 16:00 98.7 71 20 118/65 (82) 98 01/06/21 14:19 85 124/59 Intake and Output 01/06/21 01/07/21 19:00 07:00 Intake Total 630 ml Output Total 1050 ml 800 ml Balance -420 ml -800 ml Intake Oral 630 ml Output Urine Total 1050 ml 800 ml # Voids 2 # Bowel Movements 2 2 Laboratory Tests 01/07/21 06:00: White Blood Count 4.6L, Red Blood Count 2.53L, Hemoglobin 9.2L, Hematocrit 28.8L , Mean Corpuscular Volume 114H, Mean Corpuscular Hemoglobin 36.2H, Mean Kristofer uscular Hemoglobin Concent 31.9L, Red Cell Distribution Width 16.6H, Platelet Count 74L, Mean Platelet Volume 7.9, Neutrophils (%) (Auto) 55.5, Lymphocytes (%) (Auto) 28.3, Monocytes (%) (Auto) 10.1H, Eosinophils (%) (Auto) 4.3H, Basophils (%) (Auto) 1.9, Sodium Level 133L, Potassium Level 4.4, Chloride Level 104, Carbon Dioxide Level 28, Anion Gap 1L, Blood Urea Nitrogen 11, Creatinine 0.7, Estimat Glomerular Filtration Rate > 60, Glucose Level 93, Calcium Level 7.5L, Total Bilirubin 4.6H, Direct Bilirubin 2.7H, Aspartate Amino Transf (AST/SGOT) 109H, Alanine Aminotransferase (ALT/SGPT) 46, Alkaline Phosphatase 129H, Total Protein 6.1L, Albumin 1.1L, Globulin 5.0, Albumin/Globulin Ratio 0.2L Height (Feet): 5 Height (Inches): 5.00 Weight (Pounds): 230 General Appearance: no apparent distress EENT: normal ENT inspection Neck: supple Cardiovascular: normal rate Respiratory/Chest: decreased breath sounds Abdomen: hypoactive bowel sounds Extremities: non-tender Assessment/Plan Assessment/Plan: Assessment/Plan Assessment/Plan: Assessment - EtOH cirrhosis - edema - anemia - thrombocytopenia - abnormal LFT Recommendations - Follow labs - diuresis -aldactone 100 - d/c EtOH - Folic acid -lactulose -propranolol -repeat LABS Anthony Grullon MD Jan 07, 2021 12:21
--- NOTE | 2021-01-07 13:39 | NUR ---
RD ASSESSMENT & RECOMMENDATIONS SEE CARE ACTIVITY FOR COMPLETE ASSESSMENT DAILY ESTIMATED NEEDS: Needs based on Liver, wound 72.5kg abw 25-30 kcals/kg [id number] total kcals 1.25-1.5 g protein/kg 91-109 g total protein Fluid per MD, on lasix NUTRITION DIAGNOSIS: Decreased sodium needs r/t fluid overload, edema, as evidenced by pt w/ cirrhosis, ascites, LE 4+-> now 3+ edema. CURRENT DIET:Low Na/ Low Fat PO DIET RECOMMENDATIONS: Low Na/ Low Fat ADDITIONAL RECOMMENDATIONS: 1) Obtain a standing weight as able Or transfer to bed w/ scale 2) High pro snacks in b.w meals 3) Wound care: LUIS EDUARDO BID + MVI w/ min + Vit C 250mg BID 4) On lasix and aldactone updated labs as able to monitor lytes and hydration status
--- NOTE | 2021-01-07 14:50 | NUR ---
CASE MANAGEMENT:REVIEW 01/07/21 SI: SCROTAL SWELLING. ANASARCA. EDEMA 98.2 71 20 106/55 99% ON RA WBC-4.6 H/H-9.2/28.8 PLT-74 NA-133 CA-7.5 TBILI/DBILI+4.6/2.7 IS: IV LASIX QD INDERAL PO Q8HRS LACTULOSE PO BID ALDACTONE PO QD TRENTAL PO TID THIAMINE PO QD VIT C PO BID MVI PO BID : MED/SURG STATUS DCP: HOMELESS...AGREED TO RESIDENTIAL PLAN: AMBULATES 125 FT PER PT NOTES
--- NOTE | 2021-01-07 16:56 | NUR ---
INSERT CUTTER NOTE LALITO and assigned RN reviewed the dc plan w/ him. PT agreed with such plan. Pt presents as A&O4x. Pt called his friends to arrange transportation but it was unsuccessful. Pt will dc own resource via public transportation. SW explained negative ramification of unlicensed facilities/self-directing. Tap cards, maps and resources are provided. FWW was provided as a recommendation from PT.
--- NOTE | 2021-01-07 17:48 | NUR ---
NURSE NOTES: patient does not want to leave,patient wanted to eat dinner before he leaves,now patient does not want to go. Patient has his prescription,tap card to get on bus,Patient has paper work for retirement.patient was advise earlier regarding getting to retirement before it gets dark.Charge nurse notified.
--- NOTE | 2021-01-07 18:30 | NUR ---
NURSE NOTES: DR. Montaño here and updated on patient discharge status. . state to make sure patient is able to walk with walker and to make sure patient has place to go and room.
--- NOTE | 2021-01-07 18:39 | General Progress Note ---
Subjective Allergies: Coded Allergies: No Known Allergies (Unverified , 12/21/20) Subjective doing ok generalized weakness high risk of fall Objective Last 24 Hour Vital Signs Date Time Temp Pulse Resp B/P (MAP) Pulse Ox O2 Delivery O2 Flow Rate FiO2 01/07/21 13:38 65 105/53 01/07/21 13:00 105/53 01/07/21 12:00 98.2 71 20 106/55 (72) 99 01/07/21 09:34 122/54 01/07/21 09:30 61 122/54 (76) 01/07/21 09:00 Room Air 01/07/21 08:00 98.2 67 20 103/47 (65) 99 01/07/21 05:11 98 114/66 01/07/21 04:00 98.8 98 16 114/66 (82) 95 01/07/21 00:00 97.6 60 16 125/55 (78) 99 01/06/21 22:19 75 112/67 01/06/21 21:00 Room Air 01/06/21 20:00 97.3 62 18 108/65 (79) 100 Intake and Output 01/06/21 01/07/21 19:00 07:00 Intake Total 630 ml Output Total 1050 ml 800 ml Balance -420 ml -800 ml Intake Oral 630 ml Output Urine Total 1050 ml 800 ml # Voids 2 # Bowel Movements 2 2 Laboratory Tests 01/07/21 06:00: White Blood Count 4.6L, Red Blood Count 2.53L, Hemoglobin 9.2L, Hematocrit 28.8L , Mean Corpuscular Volume 114H, Mean Corpuscular Hemoglobin 36.2H, Mean Corpuscular Hemoglobin Concent 31.9L, Red Cell Distribution Width 16.6H, Platelet Count 74L, Mean Platelet Volume 7.9, Neutrophils (%) (Auto) 55.5, Lymphocytes (%) (Auto) 28.3, Monocytes (%) (Auto) 10.1H, Eosinophils (%) (Auto) 4.3H, Basophils (%) (Auto) 1.9, Sodium Level 133L, Potassium Level 4.4, Chloride Level 104, Carbon Dioxide Level 28, Anion Gap 1L, Blood Urea Nitrogen 11, Creatinine 0.7, Estimat Glomerular Filtration Rate > 60, Glucose Level 93, Calcium Level 7.5L, Total Bilirubin 4.6H, Direct Bilirubin 2.7H, Aspartate Amino Transf (AST/SGOT) 109H, Alanine Aminotransferase (ALT/SGPT) 46, Alkaline Phosphatase 129H, Total Protein 6.1L, Albumin 1.1L, Globulin 5.0, Albumin/Chanda bulin Ratio 0.2L Height (Feet): 5 Height (Inches): 5.00 Weight (Pounds): 230 General Appearance: alert EENT: PERRL/EOMI Neck: supple Cardiovascular: regular rhythm Respiratory/Chest: normal breath sounds Abdomen: non tender, soft Assessment/Plan Assessment/Plan: scortal swelling scortal wound chf htn comorbid obesity cont wound care iv abx lasix iv pt/ot eval dc plan to custodial charge nurse Juni Montaño MD Jan 07, 2021 18:39
--- NOTE | 2021-01-07 19:35 | NUR ---
NURSE HAND-OFF: Chadwick RN Important Events on Shift:Patient given discharge prescription,DR Feliz updated ,make sure patient can ambulate with walker and patient has a place to go ,patient is homeless[] Patient Status: full code[] Diet: Low Na[] Pending Orders: [Patient ] Pending Results/Labs:[] Pending MD notification:[] Latest Vital Signs: Temperature 97.3 , Pulse 67 , B/P 125 /63 , Respiratory Rate 20 , O2 SAT 99 , Room Air, O2 Flow Rate . Vital Sign Comment: [] Latest Quarles Fall Score: 45 Fall Risk: High Risk Safety Measures: Call light Within Reach, Bed Alarm Zone 1, Side Rails Side Rails x2, Bed position Low and Locked. Fall Precautions: Yellow Socks Yellow Gown Door Sign Patient Fall Education Report given to [].
--- NOTE | 2021-01-07 19:40 | NUR ---
NURSE NOTES: The patient is alert and oriented x4 and doesn't seem to be in any active distress at this time. The patient is room air with Resp even and unlabored.He doesn't seem to be in any active distress at this time.The patient is essentially on bedrest and has a urinal at bedside.He has a right FA 20g that is patent and asymptomatic.The bed in lowest level, call light within easy reach and siderails up x2. Will continue to monitor as indicated
[2021-01-08] VITALS: BP 120/56
[2021-01-08 04:00] VITALS: BP 132/56
[2021-01-08] MEDS: Propranolol 10mg tab ORAL SCH (06:08)
--- NOTE | 2021-01-08 06:43 | NUR ---
NURSE NOTES: The patient has bowel movement twice last night and is calm and cooperative with his care and doesn't appear to be in any active distress. He remained on room air.will continue to monitor as indicated.
--- NOTE | 2021-01-08 06:49 | NUR ---
CLERICAL OFFICE WORKER NOTE PT does not RECEIVE any income,thus pt has very limited options. SW explained that shelters do NOT RESERVE a bed for pt and they will need to walk-in and be on the waitlist. SW explained multiple times to pt and verbalized understanding. Pt is medically cleared for discharge. FWW was provided, which was recommended by PT.
--- NOTE | 2021-01-08 07:16 | NUR ---
NURSE HAND-OFF: Important Events on Shift:Alert and stable Patient Status: Diet: Pending Orders: Pending Results/Labs: Pending MD notification: Latest Vital Signs: Temperature 98.0 , Pulse 72 , B/P 132 /56 , Respiratory Rate 20 , O2 SAT 99 , Room Air, O2 Flow Rate . Vital Sign Comment: Latest Quarles Fall Score: 45 Fall Risk: High Risk Safety Measures: Call light Within Reach, Bed Alarm Zone 1, Side Rails Side Rails x2, Bed position Low and Locked. Fall Precautions: Yellow Socks Yellow Gown Door Sign Patient Fall Education Report given to .
--- NOTE | 2021-01-08 07:17 | NUR ---
NURSE NOTES: Received hand-off report from Chadwick Marquez RN. Patient in stable condition, alert and oriented x4, able to express needs well. Notified Dr. Chambers of minimal presence of blood in the urine and he simply gave the order to just monitor urine during shift and to notify him if a change occurs.
--- NOTE | 2021-01-08 07:20 | NUR ---
NURSE NOTES: Patient noted to have generalized swelling.
[2021-01-08 08:00] VITALS: BP 121/47
--- NOTE | 2021-01-08 09:20 | Hematology/Onc Progress Note ---
Assessment/Plan Assessment/Plan pancytopenia due to cirrhosis --> plt 60-->57 --> wbc 3-->3 --> hgb 9 coagulopathy also due to cirrhosis bleeding disorder scortal wound chf htn comorbid obesity cont wound care iv abx lasix iv pt/ot eval dc plan to snf dw surgery Diuresis as per cards Subjective HEENT: Denies: no symptoms, eye pain, blurred vision, tearing, double vision, ear pain, ear discharge, nose pain, nose congestion, throat pain, throat swelling, mouth pain, mouth swelling, other Cardiovascular: Denies: no symptoms, chest pain, edema, irregular heart rate, lightheadedness, palpitations, syncope, other Respiratory: Denies: no symptoms, cough, shortness of breath, SOB with excertion, SOB at rest, sputum, wheezing, other Gastrointestinal/Abdominal: Denies: no symptoms, abdomen distended, abdominal pain, black stools, tarry stools, blood in stool, constipated, diarrhea, difficulty swallowing, nausea, poor appetite, poor fluid intake, rectal bleeding, vomiting, other Genitourinary: Denies: no symptoms, burning, discharge, frequency, flank pain, hematuria, incontinence, pain, urgency, other Neurologic/Psychiatric: Denies: no symptoms, anxiety, depressed, emotional problems, headache, numbness, paresthesia, pre-existing deficit, seizure, tingling, tremors, weakness, other Hematologic/Lymphatic: Denies: no symptoms, anemia, easy bleeding, easy bruising, adenopathy, other Allergies: Coded Allergies: No Known Allergies (Unverified , 12/21/20) Subjective 01/03 meds notd, no bleeding, continues to have fluid overload, scrotal swelling 01/04 imaging reviewed, wbc 3, hgb 8.7, otherwise imaging shows cirrhosis 01/05 imaging noted, labs for am are pending, no bleeding overnight 01/06 awake, alert, nio bleeding or chills, labs are noted 01/08 meds noted, labs have been reviewed, no new changes Objective Objective Current Medications Medications (Trade) Dose Ordered Sig/Nelsy Route PRN Reason Start Time Stop Time Status Last Admin Dose Admin Ascorbic Acid (Vitamin C) 250 mg TWICE A DAY ORAL 12/29/20 18:00 01/28/21 17:59 01/07/21 18:51 Furosemide (Lasix) 20 mg DAILY IV 12/29/20 10:00 01/28/21 09:59 01/07/21 09:36 Lactulose (Cephulac) 20 gm BID ORAL 01/05/21 09:00 02/04/21 08:59 01/07/21 18:51 Multivitamins Therapeutic (Therapeutic Multivitamin) 1 ea BID ORAL 12/29/20 18:00 01/28/21 17:59 01/07/21 18:51 Pentoxifylline (TRENtal) 400 mg THREE TIMES A DAY ORAL 01/03/21 09:00 04/03/21 08:59 01/07/21 18:52 Propranolol HCl (Inderal) 10 mg Q8HR ORAL 01/06/21 14:00 02/05/21 13:59 01/08/21 06:08 Spironolactone (Aldactone) 100 mg DAILY ORAL 01/05/21 09:00 02/02/21 08:59 01/07/21 09:36 Thiamine HCl (Vitamin B1) 100 mg DAILY ORAL 01/03/21 09:00 02/02/21 08:59 01/07/21 09:36 Last 24 Hour Vital Signs Date Time Temp Pulse Resp B/P (MAP) Pulse Ox O2 Delivery O2 Flow Rate FiO2 01/08/21 08:00 98.2 79 21 121/47 (71) 95 01/08/21 06:08 72 132/56 01/08/21 04:00 98.0 72 20 132/56 (81) 99 01/08/21 00:00 97.6 66 20 120/56 (77) 96 01/07/21 21:49 69 118/54 01/07/21 21:00 Room Air 01/07/21 20:00 97.7 69 20 118/54 (75) 95 01/07/21 18:52 125/63 01/07/21 16:00 97.3 67 20 114/53 (73) 99 01/07/21 13:38 65 105/53 01/07/21 13:00 105/53 01/07/21 12:00 98.2 71 20 106/55 (72) 99 01/07/21 09:34 122/54 01/07/21 09:30 61 122/54 (76) 01/07/21 09:00 Room Air 01/07/21 08:00 98.2 67 20 103/47 (65) 99 01/07/21 05:11 98 114/66 01/07/21 04:00 98.8 98 16 114/66 (82) 95 01/07/21 00:00 97.6 60 16 125/55 (78) 99 01/06/21 22:19 75 112/67 01/06/21 21:00 Room Air 01/06/21 20:00 97.3 62 18 108/65 (79) 100 01/06/21 18:10 118/65 01/06/21 16:00 98.7 71 20 118/65 (82) 98 01/06/21 14:19 85 124/59 01/06/21 12:01 124/59 01/06/21 11:55 98.3 85 16 124/59 (80) 98 Intake and Output 01/07/21 01/08/21 19:00 07:00 Intake Total 960 ml Output Total 400 ml Balance 560 ml Intake Oral 960 ml Output Urine Total 400 ml # Voids 2 # Bowel Movements 2 Labs Test 01/06/21 05:20 01/07/21 06:00 White Blood Count 3.9 K/UL (4.8-10.8) 4.6 K/UL (4.8-10.8) Red Blood Count 2.54 M/UL (4.70-6.10) 2.53 M/UL (4.70-6.10) Hemoglobin 9.2 G/DL (14.2-18.0) 9.2 G/DL (14.2-18.0) Hematocrit 29.0 % (42.0-52.0) 28.8 % (42.0-52.0) Mean Corpuscular Volume 114 FL (80-99) 114 FL (80-99) Mean Corpuscular Hemoglobin 36.0 PG (27.0-31.0) 36.2 PG (27.0-31.0) Mean Corpuscular Hemoglobin Concent 31.6 G/DL (32.0-36.0) 31.9 G/DL (32.0-36.0) Red Cell Distribution Width 16.4 % (11.6-14.8) 16.6 % (11.6-14.8) Platelet Count 57 K/UL (150-450) 74 K/UL (150-450) Mean Platelet Volume 8.2 FL (6.5-10.1) 7.9 FL (6.5-10.1) Neutrophils (%) (Auto) % (45.0-75.0) 55.5 % (45.0-75.0) Lymphocytes (%) (Auto) % (20.0-45.0) 28.3 % (20.0-45.0) Monocytes (%) (Auto) % (1.0-10.0) 10.1 % (1.0-10.0) Eosinophils (%) (Auto) % (0.0-3.0) 4.3 % (0.0-3.0) Basophils (%) (Auto) % (0.0-2.0) 1.9 % (0.0-2.0) Differential Total Cells Counted 100 Neutrophils % (Manual) 59 % (45-75) Lymphocytes % (Manual) 30 % (20-45) Monocytes % (Manual) 9 % (1-10) Eosinophils % (Manual) 2 % (0-3) Basophils % (Manual) 0 % (0-2) Band Neutrophils 0 % (0-8) Platelet Estimate Decreased Platelet Morphology Normal Hypochromasia 1+ Anisocytosis 1+ Macrocytosis 1+ Sodium Level 133 MMOL/L (136-145) 133 MMOL/L (136-145) Potassium Level 3.9 MMOL/L (3.5-5.1) 4.4 MMOL/L (3.5-5.1) Chloride Level 103 MMOL/L (98-107) 104 MMOL/L (98-107) Carbon Dioxide Level 27 MMOL/L (21-32) 28 MMOL/L (21-32) Anion Gap 3 mmol/L (5-15) 1 mmol/L (5-15) Blood Urea Nitrogen 10 mg/dL (7-18) 11 mg/dL (7-18) Creatinine 0.7 MG/DL (0.55-1.30) 0.7 MG/DL (0.55-1.30) Estimat Glomerular Filtration Rate > 60 mL/min (>60) > 60 mL/min (>60) Glucose Level 86 MG/DL (74-106) 93 MG/DL (74-106) Calcium Level 7.3 MG/DL (8.5-10.1) 7.5 MG/DL (8.5-10.1) Total Bilirubin 4.2 MG/DL (0.2-1.0) 4.6 MG/DL (0.2-1.0) Direct Bilirubin 2.7 MG/DL (0.0-0.3) 2.7 MG/DL (0.0-0.3) Aspartate Amino Transf (AST/SGOT) 115 U/L (15-37) 109 U/L (15-37) Alanine Aminotransferase (ALT/SGPT) 47 U/L (12-78) 46 U/L (12-78) Alkaline Phosphatase 163 U/L (46-116) 129 U/L (46-116) Ammonia 30 umol/L (11-32) Total Protein 6.6 G/DL (6.4-8.2) 6.1 G/DL (6.4-8.2) Albumin 1.2 G/DL (3.4-5.0) 1.1 G/DL (3.4-5.0) Globulin 5.4 g/dL 5.0 g/dL Albumin/Globulin Ratio 0.2 (1.0-2.7) 0.2 (1.0-2.7) Height (Feet): 5 Height (Inches): 5.00 Weight (Pounds): 230 Objective General Appearance: no apparent distress Neck: supple Cardiovascular: regular rhythm Respiratory/Chest: lungs clear Abdomen: non tender, soft Jl Pavon MD Jan 08, 2021 09:20
[2021-01-08] MEDS: Ascorbic Acid 500mg tab ORAL SCH (09:23)
[2021-01-08] MEDS: Thiamine 100mg tab ORAL SCH (09:23)
[2021-01-08] MEDS: Spironolactone 50mg tab ORAL SCH (09:23)
[2021-01-08] MEDS: Lactulose 20gm/30ml UDC ORAL SCH (09:23)
[2021-01-08] MEDS: Multivitamin w/Minerals tab ORAL SCH (09:24)
[2021-01-08 09:25] VITALS: BP 121/63
--- NOTE | 2021-01-08 10:18 | General Progress Note ---
Subjective Allergies: Coded Allergies: No Known Allergies (Unverified , 12/21/20) Subjective doing ok generalized weakness high risk of fall Objective Last 24 Hour Vital Signs Date Time Temp Pulse Resp B/P (MAP) Pulse Ox O2 Delivery O2 Flow Rate FiO2 01/08/21 09:25 121/63 01/08/21 09:00 Room Air 01/08/21 08:00 98.2 79 21 121/47 (71) 95 01/08/21 06:08 72 132/56 01/08/21 04:00 98.0 72 20 132/56 (81) 99 01/08/21 00:00 97.6 66 20 120/56 (77) 96 01/07/21 21:49 69 118/54 01/07/21 21:00 Room Air 01/07/21 20:00 97.7 69 20 118/54 (75) 95 01/07/21 18:52 125/63 01/07/21 16:00 97.3 67 20 114/53 (73) 99 01/07/21 13:38 65 105/53 01/07/21 13:00 105/53 01/07/21 12:00 98.2 71 20 106/55 (72) 99 Intake and Output 01/07/21 01/08/21 19:00 07:00 Intake Total 960 ml Output Total 400 ml Balance 560 ml Intake Oral 960 ml Output Urine Total 400 ml # Voids 2 # Bowel Movements 2 Height (Feet): 5 Height (Inches): 5.00 Weight (Pounds): 230 General Appearance: lethargic EENT: normal ENT inspection Cardiovascular: regular rhythm Respiratory/Chest: normal breath sounds Abdomen: non tender, soft Extremities: non-tender Assessment/Plan Assessment/Plan: scortal swelling scortal wound chf htn comorbid obesity cont wound care iv abx lasix iv pt/ot eval dc plan to long term charge nurse Juni Montaño MD Jan 08, 2021 10:18
[2021-01-08] MEDS ORDERED: FUROSEMIDE20 M1 ORAL (10:58)
[2021-01-08] MEDS ORDERED: CEPHALEXIN500 MG ORAL (11:03)
[2021-01-08] MEDS ORDERED: TYLENOL325 M1 PO (11:04)
--- NOTE | 2021-01-08 11:44 | Surgery Progress Note ---
Surgery Progress Note Subjective Additional Comments states not sleeping well n n/v comfortable edema Objective Last 24 Hour Vital Signs Date Time Temp Pulse Resp B/P (MAP) Pulse Ox O2 Delivery O2 Flow Rate FiO2 01/08/21 09:25 121/63 01/08/21 09:00 Room Air 01/08/21 08:00 98.2 79 21 121/47 (71) 95 01/08/21 06:08 72 132/56 01/08/21 04:00 98.0 72 20 132/56 (81) 99 01/08/21 00:00 97.6 66 20 120/56 (77) 96 01/07/21 21:49 69 118/54 01/07/21 21:00 Room Air 01/07/21 20:00 97.7 69 20 118/54 (75) 95 01/07/21 18:52 125/63 01/07/21 16:00 97.3 67 20 114/53 (73) 99 01/07/21 13:38 65 105/53 01/07/21 13:00 105/53 01/07/21 12:00 98.2 71 20 106/55 (72) 99 I&O Intake and Output 01/07/21 01/08/21 19:00 07:00 Intake Total 960 ml Output Total 400 ml Balance 560 ml Intake Oral 960 ml Output Urine Total 400 ml # Voids 2 # Bowel Movements 2 Dressing: saturated Cardiovascular: RSR Respiratory: decreased breath sounds Abdomen: soft, non-tender, present bowel sounds, non-distended Extremities: edema, no tenderness, no cyanosis, other Plan Problems: (1) Scrotal swelling Assessment & Plan: Pt presented on admission with Multiple Pressure Injuries. Trunk,including Scrotum and Bilat lower extremities are grossly edematous. Shaft of Penis is grossly edematous and malformed. Unstageable Pressure Injury noted at base of shaft of penis(L)2.5cm x (W)1.7cm. Base of wound is 90% fibrinous,10% surrounding mehnaz borders. Edges are macerated. Surrounding shaft of penis and Scrotum are erythematous. Scattered Purpuric areas noted to lumbar, Sacrum, R and L Gluteal cheeks. Surrounding skin are erythematous. Multiple Linear partial thickness lacerations noted to medial /posterior aspects of both upper thighs. Pt informed staff that legs of his shorts became too tight because of swelling and were cutting into his skin. Scattered purpuric areas also noted to posterior Upper L and R thighs. Unstageable Pressure Injury noted to L Heel. Base of wound is 100% necrotic. Edges are adherent to base of wound. R heel is boggy with non-blanchable erythema. Tx.Plan:Cleanse wound base of penis with Saline. Apply Therahoney every 3 days and prn. Fecal pouch around base of Penis. Change every 3 days and prn.. Apply Moisture Barrier Paste to Scrotum. Buttocks, and Medial/Posterior Aspects of both upper thighs with each Incontinence care. Cover Sacrum with Optifoam drsg. Change every 3 days and prn. Apply Betadine to L Heel. Cover with Optifoam drsg. Change every 3 days and prn. Elevate Legs with Pillows. Reposition at least every 2hours or as tolerated.45-year-old male scrotal swelling identified a base right side penis lesion 2 cm x 1 cm stage III with 10% eschar. Wound washed Thera honey place dressings placed. Patient needs significant fluid reduction as he is retaining. Lasix ordered. Care plan discussed with nursing and PCP. Continue local wound care. GI for liver insufficiency. Liver: Cirrhosis with portal hypertension. Gallbladder and bile ducts: No calcified stones. No ductal dilation. Pancreas: Unremarkable. Spleen: Splenomegaly. Adrenals: Unremarkable. Kidneys and ureters: No renal calculi or obstructive changes. Stomach and bowel: Nonspecific thickening in the GI tract in light of the liver disease and third spacing. PELVIS: Appendix: No findings to suggest acute appendicitis. Bladder: Unremarkable. Reproductive: Large hydroceles ABDOMEN and PELVIS: Intraperitoneal space: Small amounts of fluid in the peritoneal cavity. Edema in the mesentery. Bones/joints: No acute fracture. Soft tissues: Anasarca. Vasculature: Collateral vessels. No abdominal aortic aneurysm. Lymph nodes: Inguinal nodes. IMPRESSION: Cirrhosis with portal hypertension. (2) Anasarca Assessment & Plan: Liver: Cirrhotic/nodular hepatic contour. Coarsened echotexture consistent with underlying parenchymal disease. No focal liver lesions identified. Right hepatic lobe diameter of 11.21 cm. Portal vein is patent with hepatopetal flow. Gallbladder: Gallbladder is contracted. No gallstones identified. Common bile duct: Unremarkable as visualized. No stones. No dilation. Pancreas: Visualized portions of the pancreatic head appear unremarkable. Pancreatic body and tail are obscured by bowel gas. Kidneys: Right kidney length of 10.7 cm. Left kidney length of 13.6 cm. Normal cortical thickness. No visible parenchymal lesions. No visible stones. No hydronephrosis. Spleen: Splenomegaly, with a diameter of 17.4 cm. Aorta: Visualized proximal portions appear unremarkable without evidence of aneurysm. Mid and distal abdominal aorta are obscured by overlying bowel gas. Inferior vena cava: Unremarkable. Free fluid: Mild volume perihepatic free fluid/ascites. IMPRESSION: 1. Cirrhotic/nodular hepatic contour. Coarsened echotexture consistent with underlying parenchymal disease. No focal liver lesions identified. 2. Splenomegaly, with a diameter of 17.4 cm. 3. Mild volume perihepatic free fluid/ascites. (3) Edema (4) Cirrhosis Assessment & Plan: etoh cessation Alexandru Cortez Jan 08, 2021 11:44
--- NOTE | 2021-01-08 12:00 | NUR ---
NURSE NOTES: Confirmed with Dr. Montaño for discharge order and he stated that the patient needs to be discharged by today. Noted and will carry out.
--- NOTE | 2021-01-08 12:15 | NUR ---
NURSE NOTES: Verified Dr. Montaño order for discharge. Patient was alert and oriented x4, able to make sound decisions. Patient belongings accounted for in front of patient and patient signed belongings list. Patient discharge instructions were given and discharge paper was signed by patient. Patient was given information regarding medications and s/s to report, patient was given prescription for him to diamond picker. IV was removed and skin intact, no signs of bleeding of infection noted. Gauze and tape placed on IV site. Patient ID band discarded in appropriate receptacle. Patient was placed in wheelchair and wheeled out safely with all of his belongings and medical paper work. Patient was provided a tap card a means for transportation.
--- NOTE | 2021-01-12 15:52 | Discharge Summary ---
Discharge Summary Discharge Summary _ Date of admission: 12/28/2020 Date of discharge: 01/08/[address] Montaño History of Present Illness and Brief Hospital Course Mr. Rae is a 45-year-old male with past medical history of liver cirrhosis, homelessness, and end-stage chronic anasarca. Patient has severe lower extremity and scrotal swelling and was sleeping on the street. Patient stated that he was in severe pain and was unable to walk. Patient was admitted to the hospital for further management. Patient presented with pancytopenia and coagulopathy due to cirrhosis. CT abdomen/pelvis revealed cirrhosis with portal hypertension. Abdominal ultrasound was notable for cirrhotic/nodular hepatic contour with coarsened echotexture consistent with underlying parenchymal disease. Splenomegaly was also demonstrated. Patient was given lactulose, spironolactone, Lasix, thiamine, and ceftriaxone. Venous duplex ultrasound of legs was negative for DVT. Patient presented on admission with multiple pressure injuries including but not limited to trunk, scrotum, and bilateral lower extremities. Patient was followed by a mission assessment specialist. Patient was medically stable for discharge. Patient was informed that shelters do not reserve a bed for the patient and that he needs to walk in and be on the wait list. Patient verbalized understanding. Patient was provided with a walker and was discharged on 01/08/2021. Consultants: Gastroenterology Dr. Kumar Surgery Dr. Cortez Hematology oncology Dr. Pavon Discharge Condition Improved and stable Final diagnoses Pancytopenia Coagulopathy CHF Hypertension Morbid obesity, BMI of 38.3 Scrotal edema Scrotal wound Alcoholic liver cirrhosis Anemia Anasarca I have been assigned to dictate discharge summary for this account. I was not involved in the patient's management Adan Galloway Jan 12, 2021 15:52
== END 2021-01-08 12:15 | disposition other institution (70) | DRG 501 ==
LOC: EDBD 18:28 → EMR 18:45 → 4E 21:40 → EDBEDREQ 22:17
DX: N49.2 Inflammatory disorders of scrotum (principal); E43 Unspecified severe protein-calorie malnutrition; D61.818 Other pancytopenia; D68.9 Coagulation defect, unspecified; N48.89 Other specified disorders of penis; R60.1 Generalized edema; E66.8 Other obesity; Z68.38 Body mass index [BMI] 38.0-38.9, adult; Z59.0 Homelessness; I11.0 Hypertensive heart disease with heart failure; I50.9 Heart failure, unspecified; E66.01 Morbid (severe) obesity due to excess calories; L89.890 Pressure ulcer of other site, unstageable; L89.620 Pressure ulcer of left heel, unstageable; S71.112A Laceration without foreign body, left thigh, initial encounter; S71.111A Laceration without foreign body, right thigh, initial encounter; X58.XXXA Exposure to other specified factors, initial encounter; K76.6 Portal hypertension; K70.30 Alcoholic cirrhosis of liver without ascites
CPT/HCPCS: 36415; 74176; 76700; 80053; 81003; 82105; 82140; 82150; 82248; 83605; 83690; 85007; 85025; 85610; 85651; 85730; 86140; 86703; 86705; 86709; 86803; 87340; 93970; 96374; 99285